=== PATIENT | male | born 1935 | race Caucasian/White ===

== ENCOUNTER → 2016-08-17 | Outpatient (CLI) | payer OTHER ==
[~2016-08-17] MED LIST: ASPI81TA28 PO; ATOR-26 PO; CHOL20007 PO; COEN1CAP40 PO; FERR325T5 PO; FIBER PO; FLUN0.02 NAE; LEVO88TA3 PO; PANT40TA2 PO; PLV75 PO; ROPI0.5T PO; TADA20TA PO; TPRSR/50 PO; VALS-58 PO
== END | disposition home or self-care (01) ==
LOC: C.RDSM 13:58
PROVIDERS: ATTEND Physical Medicine & Rehabilitation Sports Medicine
DX: Z47.1 Aftercare following joint replacement surgery (principal); Z96.653 Presence of artificial knee joint, bilateral

== ENCOUNTER 2020-07-15 13:55 | Observation (INO) ==
--- NOTE | 2020-07-15 14:54 | Emergency Department Note ---
History of Present Illness General Chief complaint: Stroke/CVA Symptoms Stated complaint: SPEECH ISSUES-UNSTEADY ON FEET-THIRSTY & TIRED Time Seen by Provider: 07/15/20 14:23 Source: patient History of Present Illness Provider complaint: Difficulty with his speech and walking. Onset (ago): hour(s) Location: head, lower extremity, left and right Severity: mild Pain Consistency: + now resolved (Mostly resolved) Maximum Pain Intensity: 0 Quality: + other (Trouble articulating words and a sense of "disequilibrium") Relieved By: + none Associated symptoms: + cough (Chronic unchanged cough. Had a negative Covid test earlier this week.); no chest pain, no fever/chills, no headaches, no era ise, no nausea/vomiting, no shortness of breath and no weakness This is an 84-year-old male with a prior history of TIA presenting with stroke symptoms starting at approximately 7 AM this morning. Patient states he went to bed at around 1 AM and when he woke up at around 7 AM he noticed that his speech was not quite right. He states he could find the words but when he tried to say the words they did not articulate normally. He states that he was talking to the TV and his cats.His symptoms have improved significantly but he still notices some problems with articulation. He also states that when he try to get up off of his recliner he had trouble walking as if he were drunk. He states that he did have back surgery earlier this week and had some difficulty walking after that but states that it got abruptly worse today and felt very different. He is on Eliquis and Plavix for prior history of atrial fibrillation and restarted the medication 2 days ago. He denies any headache, fever, chest pain, shortness of breath, malaise, loss of taste or smell, abdominal pain, vomiting, diarrhea, urinary symptoms, numbness or weakness on one side of body, difficulty with his swallowing or vision. He does state that he had a stroke 7 years ago with difficulty with his speech. He does have a pacemaker but states that he can have an MRI with the pacemaker and has had them recently. He has a chronic cough due to mucus but had a negative Covid test recently. His cough is unchanged. Home Medications Medication Instructions Recorded Confirmed Type Fiber Laxative 2 - 3 tabs PO QAM #0 01/15/14 07/15/20 History apixaban [Eliquis] 5 mg PO BID 11/26/19 07/15/20 History atorvastatin 80 mg PO HS 11/26/19 07/15/20 History cholecalciferol (vitamin D3) 1,000 mcg PO QAM 11/26/19 07/15/20 History [Vitamin D3] clopidogrel 75 mg PO QAM 11/26/19 07/15/20 History coQ10 (ubiquinol) 400 mg PO QAM 11/26/19 07/15/20 History flunisolide 1 spray INTRANASAL BID 11/26/19 07/15/20 History furosemide 40 mg PO MOWEFR 11/26/19 07/15/20 History levothyroxine 88 mcg PO QAM 11/26/19 07/15/20 History metoprolol succinate 75 mg PO HS 11/26/19 07/15/20 History pantoprazole 40 mg PO QAM 11/26/19 07/15/20 History ropinirole 2 mg PO AMHS 11/26/19 07/15/20 History tadalafil 20 mg PO UD 11/26/19 07/15/20 History tiotropium bromide [Spiriva with 1 cap INHALATION DAILY PRN 11/26/19 07/15/20 History HandiHaler] furosemide 20 mg PO SUTUTHSA 07/15/20 07/15/20 History ranolazine 1,000 mg PO BID 07/15/20 07/15/20 History Allergies Allergy/AdvReac Type Severity Reaction Status Date / Time ramipril Allergy Unknown COUGH Verified 11/26/19 15:30 Past Med/Surg History Medical History CAD (coronary artery disease) s/p NE 1988 with CABG x 4; stent x 1 2013 and x 1 2015 GERD (gastroesophageal reflux disease) 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 On tadalafil PRN for ED, not pHTN. TIA (transient ischemic attack) X 3-LAST ONE 2 YRS AGO-BLOOD THINNERS SINCE-NO ISSUES SINCE Surgical History History of back surgery X 4 LUMBAR History of cardiac cath TOTAL 2 STENTS-2013 AND 2016-F/U DR RAMIRES History of colonoscopy History of esophagogastroduodenoscopy (EGD) WITH DILITATION History of quadruple bypass 04/1988 History of tympanoplasty Hx of inguinal hernia surgery Hx of total knee replacement Social History Smoking Status: Former smoker Second Hand Exposure: Yes (PARENTS SMOKED); Hx Alcohol Use: Yes Alcohol type: beer, wine and hard liquor Hx Substance Use: No Preferred Language: Faroese Communication Ability: Effective Site Safety Representative Required: No Beliefs That Will Affect Care: None marital status: Current Living Situation: Spouse current occupational status: retired Feels Safe at Home: Yes Assistive Devices: Glasses and Hearing Aid - Bilateral Review of Systems See HPI for pertinent positives & negatives. and A total of 10 systems reviewed and were otherwise negative Physical Exam Vital Signs Vital Signs - 24 hr 07/15/20 13:56 07/15/20 14:14 07/15/20 14:20 Temperature 36.7 C Temperature Source Temporal Artery Scan Pulse Rate 82 68 66 Pulse Rate [Apical] 77 Pulse Rate from SpO2 Sensor 68 66 Respiratory Rate 18 22 25 H Respiratory Effort / Characteristics Non-Labored Respiratory Depth Normal Normal Respiratory Pattern Regular Blood Pressure 146/89 H 171/108 H Blood Pressure [Right Arm] 171/108 H Blood Pressure Mean 108 129 Blood Pressure Mean [Right Arm] 129 Blood Pressure Position Sitting Pulse Oximetry 95 95 96 Oxygen Delivery Method Room Air Room Air Sepsis Recent Fever Within 48 Hours No Sepsis New/Unexplained Change in Mental Status N/A Sepsis Action Taken by Nursing No Action Required 07/15/20 14:30 07/15/20 15:00 07/15/20 15:35 Temperature Temperature Source Pulse Rate 52 L 50 L 66 Pulse Rate [Apical] Pulse Rate from SpO2 Sensor 52 L Respiratory Rate 18 15 25 H Respiratory Effort / Characteristics Respiratory Depth Respiratory Pattern Blood Pressure 141/95 H Blood Pressure [Right Arm] Blood Pressure Mean 110 Blood Pressure Mean [Right Arm] Blood Pressure Position Pulse Oximetry 97 Oxygen Delivery Method Sepsis Recent Fever Within 48 Hours Sepsis New/Unexplained Change in Mental Status Sepsis Action Taken by Nursing 07/15/20 16:00 07/15/20 16:30 Temperature Temperature Source Pulse Rate 50 L 51 L Pulse Rate [Apical] Pulse Rate from SpO2 Sensor Respiratory Rate 19 18 Respiratory Effort / Characteristics Respiratory Depth Respiratory Pattern Blood Pressure Blood Pressure [Right Arm] Blood Pressure Mean Blood Pressure Mean [Right Arm] Blood Pressure Position Pulse Oximetry Oxygen Delivery Method Sepsis Recent Fever Within 48 Hours Sepsis New/Unexplained Change in Mental Status Sepsis Action Taken by Nursing Constitutional: Vital signs reviewed. Eyes: Pupils are equal round reactive to light. Conjunctiva are noninjected. ENT: Pharynx is clear without erythema or exudate. Mucous membranes are slightl y dry. Neck supple without meningeal signs. Respiratory: Clear to auscultation bilaterally. Breath sounds are equal bilaterally. Cardiovascular: Regular rate and rhythm. No rubs or gallops. GI: Soft, nondistended and nontender. Bowel sounds are present. Musculoskeletal: No peripheral edema. No lower extremity tenderness. Integumentary: No cyanosis. or jaundice. Neurologic: The patient is awake and alert. Cranial nerves II-XII are intact. Motor is 5 out of 5 all extremities. Sensation is intact to light touch all extremities. Normal speech. No pronator drift. No limb ataxia.NIH stroke scale 0 Psychiatric: Normal affect. Not anxious appearing. Course Administered Medications Discontinued Medications Ioversol (Optiray 350 500ml) 115 ml IV ONCE ONE Stop: 07/15/20 15:40 Last Admin: 07/15/20 15:39 Dose: 115 ml Documented by: [id number] Medical Decision Making Differential Diagnosis TIA, CVA, intracranial hemorrhage, intracranial mass, metabolic derangement Medical Records Attestation: I reviewed the patient's medical records. I did perform a limited focused review of portions of the patient's old chart on the electronic medical record. The patient has had no recent pertinent visits to this hospital.He did have an MRI of his lumbar spine in April. Home Medications Current Medication List: was personally reviewed by me Laboratory Data Attestation: I reviewed the patient's lab results. Result diagrams: 07/15/20 14:32 07/15/20 14:32 Lab Results 07/15/20 07/15/20 07/15/20 Range/Units 14:32 14:32 14:32 WBC 7.39 (4.8-10.8) K/uL RBC 3.79 L (4.7-6.1) M/uL Hgb 13.0 L (14.0-18.0) g/dL Hct 37.9 L (42-52) % MCV 100.0 (80-100) fL MCH 34.3 H (25-34) pg MCHC 34.3 (32-36) g/dL RDW Std Deviation 50.2 H (36.4-46.3) fL RDW Coeff of Shell 13.9 (11.5-14.5) % Plt Count 130 (130-400) K/uL MPV 9.4 (7.4-10.4) fL Immature Gran % (Auto) 0.7 % Neut % (Auto) 64.2 % Lymph % (Auto) 17.7 % [place] % (Auto) 13.4 % Eos % (Auto) 3.7 % Baso % (Auto) 0.3 % Neut # (Auto) 4.75 (1.4-6.5) K/uL Lymph # (Auto) 1.31 (1.2-3.4) K/uL [place] # (Auto) 0.99 H (0.11-0.59) K/uL Eos # (Auto) 0.27 (0-0.5) K/uL Baso # (Auto) 0.02 (0-0.2) K/uL Immature Gran # (Auto) 0.05 H (0.00-0.02) K/uL PT 11.7 (9.0-12.0) Seconds INR 1.2 H (0.9-1.1) APTT 27.9 (21.0-31.0) Seconds PTT Ratio 1.1 Sodium 135 L (136-145) mmol/L Potassium 4.4 (3.5-5.1) mmol/L Chloride 103 (98-107) mmol/L Carbon Dioxide 25 (21-32) mmol/L Anion Gap 7.0 (3-11) BUN 17 (7-18) mg/dl Creatinine 0.87 (0.6-1.4) mg/dl Est Cr Clr Drug Dosing 68.3 ml/min Est GFR ( Amer) 91.9 Est GFR (Non-Af Amer) 79.3 BUN/Creatinine Ratio 19.2 (10-20) Glucose 97 (70-99) mg/dl Calcium 8.2 L (8.5-10.1) mg/dl Magnesium 1.9 (1.8-2.4) mg/dl Total Bilirubin 1.0 (0.2-1) mg/dl AST 16 (15-37) U/L ALT 19 (12-78) U/L Alkaline Phosphatase 72 (45-117) U/L Troponin I < 0.015 (0-0.045) ng/ml Total Protein 6.3 L (6.4-8.2) gm/dl Albumin 3.3 L (3.4-5.0) gm/dl Globulin 3.0 (2.5-4.0) gm/dl Albumin/Globulin Ratio 1.1 (0.9-2) COVID-19 Eval Order SARS-CoV-2 (PCR) (Negative) Influenza Type A (PCR) (Neg) Influenza Type B (PCR) (Neg) RSV (RT-PCR) (Neg) 07/15/20 07/15/20 Range/Units 17:27 17:27 WBC (4.8-10.8) K/uL RBC (4.7-6.1) M/uL Hgb (14.0-18.0) g/dL Hct (42-52) % MCV (80-100) fL MCH (25-34) pg MCHC (32-36) g/dL RDW Std Deviation (36.4-46.3) fL RDW Coeff of Shell (11.5-14.5) % Plt Count (130-400) K/uL MPV (7.4-10.4) fL Immature Gran % (Auto) % Neut % (Auto) % Lymph % (Auto) % [place] % (Auto) % Eos % (Auto) % Baso % (Auto) % Neut # (Auto) (1.4-6.5) K/uL Lymph # (Auto) (1.2-3.4) K/uL [place] # (Auto) (0.11-0.59) K/uL Eos # (Auto) (0-0.5) K/uL Baso # (Auto) (0-0.2) K/uL Immature Gran # (Auto) (0.00-0.02) K/uL PT (9.0-12.0) Seconds INR (0.9-1.1) APTT (21.0-31.0) Seconds PTT Ratio Sodium (136-145) mmol/L Potassium (3.5-5.1) mmol/L Chloride (98-107) mmol/L Carbon Dioxide (21-32) mmol/L Anion Gap (3-11) BUN (7-18) mg/dl Creatinine (0.6-1.4) mg/dl Est Cr Clr Drug Dosing ml/min Est GFR ( Amer) Est GFR (Non-Af Amer) BUN/Creatinine Ratio (10-20) Glucose (70-99) mg/dl Calcium (8.5-10.1) mg/dl Magnesium (1.8-2.4) mg/dl Total Bilirubin (0.2-1) mg/dl AST (15-37) U/L ALT (12-78) U/L Alkaline Phosphatase (45-117) U/L Troponin I (0-0.045) ng/ml Total Protein (6.4-8.2) gm/dl Albumin (3.4-5.0) gm/dl Globulin (2.5-4.0) gm/dl Albumin/Globulin Ratio (0.9-2) COVID-19 Eval Order CovFluRsv at [facility] SARS-CoV-2 (PCR) NEGATIVE (Negative) Influenza Type A (PCR) Negative (Neg) Influenza Type B (PCR) Negative (Neg) RSV (RT-PCR) Negative (Neg) Imaging Data Radiologist's Impression: Head CT 07/15/20 14:41 CT head/brain wo con CLINICAL HISTORY: 84 years-old Male with dysarthria eval for stroke. Acute strokelike symptoms TECHNIQUE: Multiple axial CT images of the head were obtained without contrast. A dose lowering technique was utilized adhering to the principles of ALARA. COMPARISON: CTA head and neck of same day FINDINGS: No acute intracranial hemorrhage, midline shift, intracranial mass, hydrocephalus, territorial ischemia or abnormal extra-axial collection. Age- related involutional changes. Cerebral vascular calcifications. White matter hypodensities suggestive of chronic microvascular ischemic disease. The calvarium is intact. Trace right mastoid effusion. Postoperative changes suggestive of partial left-sided mastoidectomy. Fluid is noted within the left mastoid air cells and middle ear cavity. Mild mucosal thickening of the maxillary and ethmoid sinuses. Unremarkable soft tissues and orbits. IMPRESSION: No acute intracranial abnormality. ACT 112: Negative or not required by law. The above report was generated using voice recognition software. It may contain grammatical, syntax or spelling errors. Electronically signed by: Cm Lau M.D. 07/15/2020 3:46 PM Head CTA 07/15/20 14:41 CTA ANGIOGRAPHY OF THE HEAD CLINICAL HISTORY: Stroke Like Symptoms COMPARISON STUDY: MRA of the head April 21, 2018. TECHNIQUE: Helical axial images of the head were obtained following uneventful intravenous administration of 115 cc of Optiray. Sagittal and coronal reconstructions were viewed as well as maximal intensity projections on an independent 3-D workstation. Automated exposure control was utilized for the study. A dose lowering technique was utilized adhering to the principles of ALARA. CT DOSE: 1268.40 mGy.cm FINDINGS: No acute intracranial hemorrhage, midline shift or mass effect is present. Ventricular system is normal. Basilar cisterns are patent. There are no extra-axial collections. Left mastoidectomy is noted. There is fluid within the left middle ear. This was likely present on previous MRI. The bilateral M1, M2, A1 and A2 segments are patent. No central vessel occlusion is present. Multi focal stenoses within the intracranial portion of the right vertebral artery are similar to MRI of April 21, 2018. There is no intracranial aneurysm. IMPRESSION: 1. No central vessel occlusion. 2. No change in multifocal stenoses within the intracranial portion of the right vertebral artery. ACT 112: Negative or not required by law. Electronically signed by: Chucho Esposito M.D. 07/15/2020 4:01 PM Neck CTA 07/15/20 14:41 NECK CTA HISTORY: Stroke Like Symptoms TECHNIQUE: Multiaxial CT images of the neck were performed following the intravenous administration of contrast to evaluate the major cervical vessels. Maximum intensity projection images were also obtained. All measurements were calculated based on NASCET criteria. A dose lowering technique was utilized adhering to the principles of ALARA. COMPARISON STUDY: None. FINDINGS: The aortic arch and proximal great vessels are widely patent. No significant stenosis or occlusion within the bilateral common carotid or vertebral arteries. There is moderate calcified plaque within the mid right internal carotid artery without significant stenosis. There is also moderate calcified plaque within the left carotid bifurcation. This results in approximately 70% stenosis at the proximal left internal carotid artery best seen on image 261. The mid to distal left internal carotid artery is widely patent. There is a right perihilar groundglass airspace opacity best seen on image 12 which measures 2.1 cm. There are poststernotomy changes. IMPRESSION: 1. Approximately 70% stenosis within the proximal left internal carotid artery due to the calcified plaque. 2. No significant stenosis within the right carotid arteries or bilateral vertebral arteries. 3. A 2.1 cm right perihilar groundglass airspace opacity. This may represent a small focus of inflammatory/infectious change. However, [address] follow-up recommended to exclude the possibility of a low-grade neoplasm. ACT 112: Positive. There are findings on this exam that require communication between the performing entity and the patient following Patient Test Result Information Act ([place] Act 112) guidelines. Electronically signed by: Pablo Baires M.D. 07/15/2020 3:51 PM ECG Data Attestation: I personally reviewed and interpreted this ECG as follows: Indication: + other (Stroke symptoms) Rate (beats per minute): 75 Rhythm: + other (AV dual paced rhythm) ECG Findings: + Other (Prolonged AV conduction.); no PACs and no PVCs MDM Narrative I did evaluate the patient as noted above. The patient is presenting with strokelike symptoms starting at 7 AM this morning. He is out of the IV TPA w indow and he also is on Eliquis and Plavix.Currently his NIH scale is 0 but he states that he still has some difficulty with articulating words and walking. IV access was established. I did place an order for continuous cardiac monitoring. The monitor showed Paced rhythm at a rate of 75 bpm. I did order and personally review the patient's 12-lead EKG as described above. He has a paced rhythm. I did order and review the patient's blood work as noted in the electronic medical record. CBC demonstrates some mild anemia with a hemoglobin of 13. White blood cell count platelet counts are within normal limits. I did order a CT of the Head and CT angiogram of the head neck. I did review the images myself as well as the radiology report as described above. There is no acute intracranial ab normality. There is an approximately 70% stenosis within the proximal left internal carotid artery due to calcified plaque. No significant stenosis is otherwise noted. There is a perihilar groundglass opacity in the right lung measuring 2.1 cm. I did reassess the patient. He states his speech is now seemingly normal. He does still feel unsteady. I did try to walk him and he was somewhat off balance. I did recommend hospitalization for MRI and further evaluation. He does have a pacemaker but he states he has had multiple MRIs since having it implanted years ago. Impression & Plan Ataxia, Dysarthria, Anticoagulated Discharge Plan Visit Data Chief Complaint: Stroke/CVA Symptoms Stated Complaint: SPEECH ISSUES-UNSTEADY ON FEET-THIRSTY & TIRED ED Provider: Carlton Ewing Discharge Problem: Ataxia, Dysarthria, Anticoagulated Patient Disposition: Being Evaluated by Hospitalist Forms Stand Alone Forms: My [facility] Prescriptions Prescriptions: No Action Fiber Laxative EACH 2 - 3 tabs PO QAM Qty: 0 RF: 0 atorvastatin 80 mg Tablet 80 mg PO HS RF: 0 clopidogrel 75 mg Tablet 75 mg PO QAM RF: 0 coQ10 (ubiquinol) 200 mg Capsule 400 mg PO QAM RF: 0 Vitamin D3 100 mcg (4,000 unit) Capsule 1,000 mcg PO QAM RF: 0 furosemide 20 mg Tablet 40 mg PO MOWEFR RF: 0 Eliquis 5 mg Tablet 5 mg PO BID RF: 0 Spiriva with HandiHaler 18 mcg Capsule, W/Inhalation Device 1 cap INHALATION DAILY PRN (Reason: Wheezing) RF: 0 metoprolol succinate 50 mg Tablet Extended Release 24 Hr 75 mg PO HS RF: 0 flunisolide 25 mcg (0.025 %) [place],Non-Aerosol 1 spray INTRANASAL BID RF: 0 levothyroxine 88 mcg Capsule 88 mcg PO QAM RF: 0 ropinirole 1 mg Tablet 2 mg PO AMHS RF: 0 pantoprazole 40 mg Tablet,Delayed Release (Dr/Ec) 40 mg PO QAM RF: 0 tadalafil 20 mg Tablet 20 mg PO UD RF: 0 furosemide 20 mg tablet 20 mg PO SUTUTHSA RF: 0 ranolazine 1,000 mg tablet extended release 12 hr 1,000 mg PO BID RF: 0 Referrals Referrals: Isaias Em MD [Primary Care Provider] -
[2020-07-15 15:03] LABS: Basophils # (auto) 0.02 K/uL (0-0.2); Basophils % (auto) 0.3 %; Eosinophils # (auto) 0.27 K/uL (0-0.5); Eosinophils % (auto) 3.7 %; Hematocrit (blood only) 37.9 % (42-52); Immature Granulocytes # (auto) 0.05 K/uL (0.00-0.02); Immature Granulocytes % (auto) 0.7 %; Lymphocytes # (auto) 1.31 K/uL (1.2-3.4); Lymphocytes % (auto) 17.7 %; Mean Corpuscular Hemoglobin 34.3 pg (25-34); Mean Corpuscular Hgb Conc 34.3 g/dL (32-36); Mean Platelet Volume 9.4 fL (7.4-10.4); Monocytes # (auto) 0.99 K/uL (0.11-0.59); Monocytes % (auto) 13.4 %; Neutrophils # (auto) 4.75 K/uL (1.4-6.5); Neutrophils % (auto) 64.2 %; Platelet Count 130 K/uL (130-400); RDW Coefficient of Variation 13.9 % (11.5-14.5); RDW Standard Deviation 50.2 fL (36.4-46.3); Red Blood Count 3.79 M/uL (4.7-6.1); White Blood Count 7.39 K/uL (4.8-10.8)
[2020-07-15 15:08] LABS: INR 1.2 (0.9-1.1); Partial Thromboplastin Ratio 1.1; Partial Thromboplastin Time 27.9 Seconds (21.0-31.0); Prothrombin Time 11.7 Seconds (9.0-12.0)
[2020-07-15 15:15] LABS: Alanine Aminotransferase 19 U/L (12-78); Albumin Level 3.3 gm/dl (3.4-5.0); Aspartate Aminotransferase 16 U/L (15-37); BUN Creatinine Ratio 19.2 (10-20); Blood Urea Nitrogen 17 mg/dl (7-18); Calcium 8.2 mg/dl (8.5-10.1); Carbon Dioxide 25 mmol/L (21-32); Chloride 103 mmol/L (98-107); Creatinine Clr Calc Pharmacy 68.3 ml/min; Est GFR (African American) 91.9; Est GFR (Non-African American) 79.3; Glucose 97 mg/dl (70-99); Magnesium 1.9 mg/dl (1.8-2.4); Potassium 4.4 mmol/L (3.5-5.1); Sodium 135 mmol/L (136-145)
[2020-07-15 15:20] LABS: Albumin Globulin Ratio 1.1 (0.9-2); Alkaline Phosphatase 72 U/L (45-117); Total Protein 6.3 gm/dl (6.4-8.2); Troponin I < 0.015 ng/ml (0-0.045)
[2020-07-15] MEDS ORDERED: OPTIRAY 350 500ml IV ONE (15:39)
--- NOTE | 2020-07-15 15:47 | CT Scan Report ---
CT head/brain wo con CLINICAL HISTORY: 84 years-old Male with dysarthria eval for stroke. Acute strokelike symptoms TECHNIQUE: Multiple axial CT images of the head were obtained without contrast. A dose lowering tech nique was utilized adhering to the principles of ALARA. COMPARISON: CTA head and neck of same day FINDINGS: No acute intracranial hemorrhage, midline shift, intracranial mass, hydrocephalus, territorial ischem ia or abnormal extra-axial collection. Age-related involutional changes. Cerebral vascular calcificat ions. White matter hypodensities suggestive of chronic microvascular ischemic disease. The calvarium is intact. Trace right mastoid effusion. Postoperative changes suggestive of partial l eft-sided mastoidectomy. Fluid is noted within the left mastoid air cells and middle ear cavity. Mild mucosal thickening of the maxillary and ethmoid sinuses. Unremarkable soft tissues and orbits. IMPRESSION: No acute intracranial abnormality. ACT 112: Negative or not required by law. The above report was generated using voice recognition software. It may contain grammatical, syntax o r spelling errors. Electronically signed by: Cm Lau M.D. 07/15/2020 3:46 PM
--- NOTE | 2020-07-15 15:52 | CT Scan Report ---
NECK CTA HISTORY: Stroke Like Symptoms TECHNIQUE: Multiaxial CT images of the neck were performed following the intravenous administration o f contrast to evaluate the major cervical vessels. Maximum intensity projection images were also obta ined. All measurements were calculated based on NASCET criteria. A dose lowering technique was utili zed adhering to the principles of ALARA. COMPARISON STUDY: None. FINDINGS: The aortic arch and proximal great vessels are widely patent. No significant stenosis or o cclusion within the bilateral common carotid or vertebral arteries. There is moderate calcified plaqu e within the mid right internal carotid artery without significant stenosis. There is also moderate c alcified plaque within the left carotid bifurcation. This results in approximately 70% stenosis at th e proximal left internal carotid artery best seen on image 261. The mid to distal left internal carot id artery is widely patent. There is a right perihilar groundglass airspace opacity best seen on imag e 12 which measures 2.1 cm. There are poststernotomy changes. IMPRESSION: 1. Approximately 70% stenosis within the proximal left internal carotid artery due to the calcified p laque. 2. No significant stenosis within the right carotid arteries or bilateral vertebral arteries. 3. A 2.1 cm right perihilar groundglass airspace opacity. This may represent a small focus of inflamm atory/infectious change. However, [address] follow-up recommended to exclude the possibility o f a low-grade neoplasm. ACT 112: Positive. There are findings on this exam that require communication between the performing entity and the patient following Patient Test Result Information Act ([place] Act 112) guidelines. Electronically signed by: Pablo Baires M.D. 07/15/2020 3:51 PM
--- NOTE | 2020-07-15 16:03 | CT Scan Report ---
CTA ANGIOGRAPHY OF THE HEAD CLINICAL HISTORY: Stroke Like Symptoms COMPARISON STUDY: MRA of the head April 21, 2018. TECHNIQUE: Helical axial images of the head were obtained following uneventful intravenous administr ation of 115 cc of Optiray. Sagittal and coronal reconstructions were viewed as well as maximal inten sity projections on an independent 3-D workstation. Automated exposure control was utilized for the study. A dose lowering technique was utilized adhering to the principles of ALARA. CT DOSE: 1268.40 mGy.cm FINDINGS: No acute intracranial hemorrhage, midline shift or mass effect is present. Ventricular syst em is normal. Basilar cisterns are patent. There are no extra-axial collections. Left mastoidectomy i s noted. There is fluid within the left middle ear. This was likely present on previous MRI. The bila teral M1, M2, A1 and A2 segments are patent. No central vessel occlusion is present. Multifocal steno ses within the intracranial portion of the right vertebral artery are similar to MRI of April 21 019. There is no intracranial aneurysm. IMPRESSION: 1. No central vessel occlusion. 2. No change in multifocal stenoses within the intracranial portion of the right vertebral artery. ACT 112: Negative or not required by law. Electronically signed by: Chucho Esposito M.D. 07/15/2020 4:01 PM
--- NOTE | 2020-07-15 18:40 | History & Physical Report ---
Date of Service July 15, 2020 Assessment & Plan (1) Ataxia: Suhas cD is an 84 yo male with complex PMHx that includes 6 TIAs over the last 7 years, CAD (on Plavix, CABG 31 years ago, 2 PCIs with 2 stents), a-fib (on Eliquis), sick sinus syndrome s/p PPM several years ago, and recent l umbar spine laminectomy who presents to [facility] on 07/15/2020 for productive aphagia and unsteady gait since 0700 this morning. TIA vs CVA. TIA vs CVA Productive aphagia that resolved after several hours but ataxia that is only partially improved, h/o several TIAs, h/o HTN/HLD/CAD - suspect TIA vs stroke. Etiology likely cardioembolic 2/2 a-fib (not anti-coagulated for 5 days) vs intracranial atherosclerosis. - CT Head w/o contrast showing no acute intracranial process - CTA Head/Neck showing 70% stenosis of proximal left ICA - symptoms not congruent with this lesion - ordered MRI brain w/o contrast and TTE - pending - may consider DAPT, pending imaging results - Neurology consulted - NPO pending speech eval - admit to med/surg with tele - cardiac monitoring - A1c/lipids in the AM Atrial Fibrillation - rate-controlled with PPM x several years - continue home Eliquis CAD/HTN - TTE ordered as mentioned above - continue home Atorvastatin, Clopidogrel, Furosemide, Toprol XL, Ranolazine - started Losartan 25mg PO daily, with first dose now COPD - continue home inhalers Hypothyroidism - continue home Synthroid - TSH in AM GERD - continue home Protonix Restless Leg Syndrome - continue home Ropinirole FEN/GI: NPO pending speech eval DVT Prophylaxis: Eliquis 5mg PO BID, Plavix 75mg PO QAM Code Status: Full code Disposition: Med/surg with tele (2) Dysarthria: (3) Anticoagulated: (4) Lumbar stenosis with neurogenic claudication: (5) Hypertension: (6) TIA (transient ischemic attack): (7) History of quadruple bypass: History of Present Illness Chief Complaint: difficulty with speech production and stumbling gait Primary Care Provider: Isaias Em MD Suhas Dc is an 84 yo male with complex PMHx that includes 6 TIAs over the last 7 years, CAD (on Plavix, CABG 31 years ago, 2 PCIs with 2 stents), a-fib (on Eliquis), sick sinus syndrome s/p PPM several years ago, and recent lumbar spine laminectomy who presents to [facility] on 07/15/2020 for productive aphagia and unsteady gait since 0700 this morning. Patient reports that he recently had [place] [facility] and had been off of Plavix/Eliquis for total of 5 days - re-started both meds 2 days ago. He did well post-op and was able to walk with a steady gait. After waking up this morning he noticed that he was unable to speak in an organized fashion (only nonsensical speech) and he felt "drunk" while walking as he was unsteady. After several hours, his speech returned to baseline, but his walking is still only somewhat improved. Several of his previous TIAs involved productive aphagia but the unsteady gait is new for him. In the ED, patient had CT Head without evidence of stroke; CTA Head/Neck done and showed 70% stenosis within the proximal left internal carotid artery due to the calcified plaque. Allergies Allergy/AdvReac Type Severity Reaction Status Date / Time ramipril Allergy Unknown COUGH Verified 11/26/19 15:30 Home Medications Medication Instructions Recorded Confirmed Type Fiber Laxative 2 - 3 tabs PO QAM #0 01/15/14 07/15/20 History apixaban [Eliquis] 5 mg PO BID 11/26/19 07/15/20 History atorvastatin 80 mg PO HS 11/26/19 07/15/20 History cholecalciferol (vitamin D3) 1,000 mcg PO QAM 11/26/19 07/15/20 History [Vitamin D3] clopidogrel 75 mg PO QAM 11/26/19 07/15/20 History coQ10 (ubiquinol) 400 mg PO QAM 11/26/19 07/15/20 History flunisolide 1 spray INTRANASAL BID 11/26/19 07/15/20 History furosemide 40 mg PO MOWEFR 11/26/19 07/15/20 History levothyroxine 88 mcg PO QAM 11/26/19 07/15/20 History metoprolol succinate 75 mg PO HS 11/26/19 07/15/20 History pantoprazole 40 mg PO QAM 11/26/19 07/15/20 History ropinirole 2 mg PO AMHS 11/26/19 07/15/20 History tadalafil 20 mg PO UD 11/26/19 07/15/20 History tiotropium bromide [Spiriva with 1 cap INHALATION DAILY PRN 11/26/19 07/15/20 History HandiHaler] furosemide 20 mg PO SUTUTHSA 07/15/20 07/15/20 History ranolazine 1,000 mg PO BID 07/15/20 07/15/20 History Past Med/Surg History Medical History CAD (coronary artery disease) s/p OK 1988 with CABG x 4; stent x 1 2013 and x 1 2015 GERD (gastroesophageal reflux disease) 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 On tadalafil PRN for ED, not pHTN. TIA (transient ischemic attack) X 3-LAST ONE 2 YRS AGO-BLOOD THINNERS SINCE-NO ISSUES SINCE Surgical History History of back surgery X 4 LUMBAR History of cardiac cath TOTAL 2 STENTS-2013 AND 2016-F/U DR RAMIRES History of colonoscopy History of esophagogastroduodenoscopy (EGD) WITH DILITATION History of quadruple bypass 04/1988 History of tympanoplasty Hx of inguinal hernia surgery Hx of total knee replacement Social History Smoking Status: Former smoker Second Hand Exposure: Yes (PARENTS SMOKED); Hx Alcohol Use: Yes Alcohol type: beer, wine and hard liquor Hx Substance Use: No Preferred Language: Malawian Communication Ability: Effective Energy Management Specialist Required: No Beliefs That Will Affect Care: None marital status: Current Living Situation: Spouse current occupational status: retired Feels Safe at Home: Yes Assistive Devices: Glasses and Hearing Aid - Bilateral Review of Systems Review of Systems: All systems reviewed & are unremarkable except as noted in HPI & below Physical Exam Constitutional: WD/WN, vitals as above Eyes: PERRL, conjunctivae normal, anicteric sclerae ENMT: external ear and nose normal, oropharynx normal Neck: trachea midline, no thyromegaly Respiratory: normal respiratory effort, lungs clear to auscultation Cardiovascular: RRR, no murmur, no edema Chest (Breasts): Chest: normal inspection of chest Gastrointestinal (Abdomen): normal bowel sounds, soft, nontender, no hepatosplenomegaly Musculoskeletal: no cyanosis or clubbing, extremities motor strength 5/5 Skin: no rashes, warm and dry Neurologic: patellar DTR's 2+ bilat, sensation intact and PERRL, EOMI, accommodation nl, no face palsy, no dysarthria normal touch/pain/proprioception and CN's II-XI intact bilaterally Speech / Cognition: no expressive aphasia, no receptive aphasia and normal cognition Gait: + ataxic gait and + gait assisted Coordination: normal mvsstu-mv-drox test and normal nino-ph-sxdi test Results & Data Results & Data ([facility]) Vital Signs (Past 12 Hours) Vital Signs Temp Pulse Pulse Resp BP BP Pulse Ox 07/15/20 16:30 51 L 18 07/15/20 16:00 50 L 19 07/15/20 15:35 66 25 H 141/95 H 07/15/20 15:00 50 L 15 07/15/20 14:30 52 L 18 97 07/15/20 14:20 66 25 H 96 07/15/20 14:14 68 77 22 171/108 H 171/108 H 95 07/15/20 13:56 36.7 C 82 18 146/89 H 95 Code Status & VTE Plan Code Status Full Code VTE Prophylaxis Plan VTE Prophylaxis will be ordered: Yes Supervising Physician Co-Signing Physician Notes I personally examined the patient and verified all diaz points of history and exam, discussed case, and agree with decision making with Dr Phillips mostly feeling better dysarthria improved. still a little stumbly w gait vitals noted nad heent nc at mmm breathing unlabored no accessory muscles good effort skin no rashes no pallor or icterus. neuro exam as above, otherwise as above TIA vs CVA -MRI, supportive care, neuro consult, serial exams, med management. Otherwise as above. Resident Activity Tracking Resident Involvement: Resident Care Provided Care Provided: Adult [facility]
[2020-07-15 18:44] LABS: Influenza A virus by PCR Negative (Neg); Influenza B virus by PCR Negative (Neg); RSV by PCR Negative (Neg); SARS CoV2 RNA(COVID-19) InHosp NEGATIVE (Negative)
--- NOTE | 2020-07-15 19:14 | Billing Data ---
Date of Service July 15, 2020 Coding Level of Care Code 38880 OBS Care - Level 3
[2020-07-15] MEDS ORDERED: NON-FORMULARY MEDICATION (Tadalafil 20 mg Tablet) PO SCH (20:26)
[2020-07-15] MEDS ORDERED: PHARMACIST DISCHARGE MED REC CONSULT PRN (20:26)
[2020-07-15] MEDS ORDERED: ACETAMINOPHEN 325 MG TAB PO PRN (20:26)
[2020-07-15] MEDS ORDERED: MELATONIN 3 MG TAB PO PRN (20:26)
[2020-07-15] MEDS ORDERED: UMECLIDINIUM BROMIDE 62.5MCG/BLISTER 7 PUFFS/INHALER INH PRN (20:36)
[2020-07-15] MEDS ORDERED: ATORVASTATIN 40 MG TAB PO SCH (21:00)
[2020-07-15] MEDS ORDERED: [UNRECOGNIZED DRUG - REMARK] INTNAS SCH (21:00)
[2020-07-15] MEDS ORDERED: METOPROLOL SUCC 25MG EXT REL TAB PO SCH (21:00)
[2020-07-15] MEDS: RANOLAZINE 500 MG ER TAB PO SCH (21:05)
[2020-07-15] MEDS: rOPINIRole HCL 1 MG TABLET PO SCH (21:05)
[2020-07-15] MEDS: APIXABAN 5 MG TABLET PO SCH (21:05)
[2020-07-15] MEDS: LOSARTAN POTASSIUM 25 MG TAB PO SCH (21:05)
[2020-07-16] MEDS ORDERED: LEVOTHYROXINE SODIUM 88 MCG TABLET PO SCH (06:30)
--- NOTE | 2020-07-16 06:43 | Electrocardiogram Report ---
Test Reason : Blood Pressure : / mmHG Vent. Rate : 075 BPM Atrial Rate : 075 BPM P-R Int : 258 ms QRS Dur : 196 ms QT Int : 484 ms P-R-T Axes : -05 -49 102 degrees QTc Int : 540 ms AV dual-paced rhythm with prolonged AV conduction Abnormal ECG When compared with ECG of 30-NOV-2019 14:49, Vent. rate has increased BY 19 BPM Confirmed by Vaibhav Craig ([id number]) on 07/16/2020 6:43:05 AM Referred By: Confirmed By:Vaibhav Craig
[2020-07-16 06:53] LABS: Basophils # (auto) 0.03 K/uL (0-0.2); Basophils % (auto) 0.5 %; Eosinophils # (auto) 0.26 K/uL (0-0.5); Eosinophils % (auto) 4.5 %; Hematocrit (blood only) 38.2 % (42-52); Hemoglobin 13.4 g/dL (14.0-18.0); Immature Granulocytes # (auto) 0.05 K/uL (0.00-0.02); Immature Granulocytes % (auto) 0.9 %; Lymphocytes # (auto) 1.33 K/uL (1.2-3.4); Lymphocytes % (auto) 22.8 %; Mean Corpuscular Hemoglobin 34.6 pg (25-34); Mean Corpuscular Hgb Conc 35.1 g/dL (32-36); Mean Corpuscular Volume 98.7 fL (80-100); Mean Platelet Volume 9.9 fL (7.4-10.4); Monocytes # (auto) 0.74 K/uL (0.11-0.59); Monocytes % (auto) 12.7 %; Neutrophils # (auto) 3.42 K/uL (1.4-6.5); Neutrophils % (auto) 58.6 %; Platelet Count 141 K/uL (130-400); RDW Coefficient of Variation 13.7 % (11.5-14.5); RDW Standard Deviation 49.6 fL (36.4-46.3); Red Blood Count 3.87 M/uL (4.7-6.1); White Blood Count 5.83 K/uL (4.8-10.8)
[2020-07-16 07:11] LABS: BUN Creatinine Ratio 17.2 (10-20); Calcium 8.5 mg/dl (8.5-10.1); Creatinine Clr Calc Pharmacy 61.3 ml/min; Est GFR (African American) 83.8; Est GFR (Non-African American) 72.3; Potassium 4.3 mmol/L (3.5-5.1)
[2020-07-16 07:22] LABS: Thyroid Stimulating Hormone 1.34 uIu/ml (0.300-4.500)
[2020-07-16 07:51] LABS: Estimated Average Glucose 108 mg/dl; Hemoglobin A1C 5.4 % (4.5-5.6)
--- NOTE | 2020-07-16 08:19 | Hospitalist Progress Note ---
Date of Service July 16, 2020 Assessment & Plan (1) Ataxia: Suhas Dc is an 84 yo male with complex PMHx that includes 6 TIAs over the last 7 years, CAD (on Plavix, CABG 31 years ago, 2 PCIs with 2 stents), a-fib (on Eliquis), sick sinus syndrome s/p PPM several years ago, and recent l umbar spine laminectomy who presents to [facility] on 07/15/2020 for productive aphagia and unsteady gait since 0700 this morning. TIA vs CVA. TIA vs CVA Productive aphasia that resolved after several hours and ataxia that is now fully resolved, h/o several TIAs, h/o HTN/HLD/CAD - suspect TIA vs stroke. Etiology likely cardioembolic 2/2 a-fib (not anti-coagulated for 5 days) vs intracranial atherosclerosis. - CT Head w/o contrast showing no acute intracranial process - CTA Head/Neck showing 70% stenosis of proximal left ICA - symptoms not congruent with this lesion - ordered MRI brain w/o contrast and TTE - pending - may consider DAPT, pending imaging results - Neurology consulted -Recommend pacemaker interrogation -If stroke noted on MRI brain, would consider CT C/A/P to rule out underlying malignancy as he was on Plavix for 2 days prior to event (despite holding medications for 5 days, timing does not fit) -Follow-up with neurology clinic in 6 to 8 weeks -Patient passed dysphagia screen, will start heart healthy diet -Continue cardiac monitoring on telemetry Atrial Fibrillation - rate-controlled with PPM x several years -Pacemaker interrogation ordered, follow results - continue home Eliquis CAD/HTN - TTE ordered as mentioned above - continue home Atorvastatin, Clopidogrel, Furosemide, Toprol XL, Ranolazine - started Losartan 25mg PO daily COPD - continue home inhalers Hypothyroidism - continue home Synthroid - TSH 1.340 GERD - continue home Protonix Restless Leg Syndrome - continue home Ropinirole FEN/GI: Heart healthy diet DVT Prophylaxis: Eliquis 5mg PO BID, Plavix 75mg PO QAM Code Status: Full code Disposition: Med/surg with tele (2) Dysarthria: (3) Anticoagulated: (4) Lumbar stenosis with neurogenic claudication: (5) Hypertension: (6) TIA (transient ischemic attack): (7) History of quadruple bypass: Admission and Anticipated Discharge Date Admission Date: July 15, 2020 Supervising Physician Co-Signing Physician Notes see discharge summary Subjective Patient doing well this morning, no complaints. Later in the morning his blood pressure did decrease, but per RN patient asymptomatic. Review of Systems Review of Systems: All systems reviewed & are unremarkable except as noted in Subjective Physical Exam Constitutional: WD/WN, vitals as above Eyes: PERRL, conjunctivae normal, anicteric sclerae ENMT: external ear and nose normal, oropharynx normal Neck: trachea midline, no thyromegaly Respiratory: normal respiratory effort, lungs clear to auscultation Cardiovascular: RRR, no murmur, no edema Chest (Breasts): Chest: normal inspection of chest Gastrointestinal (Abdomen): normal bowel sounds, soft, nontender, no hepatosplenomegaly Musculoskeletal: no cyanosis or clubbing, extremities motor strength 5/5 Skin: no rashes, warm and dry Neurologic: patellar DTR's 2+ bilat, sensation intact and PERRL, EOMI, accommodation nl, no face palsy, no dysarthria normal touch/pain/proprioception and CN's II-XI intact bilaterally Speech / Cognition: no expressive aphasia, no receptive aphasia and normal cognition Results & Data Results & Data ([facility]) Vital Signs (Past 12 Hours) Vital Signs Temp Pulse Pulse Resp BP Pulse Ox 07/16/20 07:36 36.7 C 52 L 18 145/74 H 96 07/16/20 03:20 36.7 C 53 L 18 90/47 L 94 07/16/20 01:27 51 L 07/15/20 23:04 36.5 C 74 18 167/94 H 96 07/15/20 22:55 53 L 07/15/20 22:15 36.5 C 51 L 18 156/78 H 96 Resident Activity Tracking Resident Involvement: Resident Care Provided Care Provided: Adult [facility]
[2020-07-16] MEDS: APIXABAN 5 MG TABLET PO SCH (08:41)
[2020-07-16] MEDS: LOSARTAN POTASSIUM 25 MG TAB PO SCH (08:42)
[2020-07-16] MEDS: RANOLAZINE 500 MG ER TAB PO SCH (08:42)
[2020-07-16] MEDS: rOPINIRole HCL 1 MG TABLET PO SCH (08:43)
[2020-07-16] MEDS ORDERED: PANTOprazole 40 MG TAB PO SCH (09:00)
[2020-07-16] MEDS ORDERED: CHOLECALCIFEROL 1,000 UNITS 25 MCG TAB PO SCH (09:00)
[2020-07-16] MEDS ORDERED: CLOPIDOGREL BISULFATE 75 MG TAB PO SCH (09:00)
[2020-07-16] MEDS ORDERED: FUROSEMIDE 20 MG TAB PO SCH (09:00)
--- NOTE | 2020-07-16 11:15 | Neurology Consultation ---
Date of Consultation July 16, 2020 Assessment & Plan (1) Ataxia: Suhas Dc is an 84 yo man w/ PMH of CAD s/p CABG and cardiac stents, HTN, sick sinus syndrome s/p pacemaker, pulmonary HTN, h/o NV, h/o multiple TIAs, Afib on eliquis, and lumbar spinal stenosis s/p recent laminectomy who p/t [facility] with acute onset of dysarthria, gait imbalance and word finding difficulty. Symptom localization: Stroke mechanism: cardioembolic - vessel to vessel embolus - large vessel occlusion - lacunar/lipohyalinosis - flow failure - hypercoagulable - cryptogenic Stroke WorkUp: - CT head: shows no hemorrhage or hypodensity, mild SVID noted - CTA head/neck: shows moderate left ICA stenosis, moderate right ICA stenosis, multifocal narrowing of the right vertebral artery in the V4 segment due to calcified atherosclerotic plaque, diffuse intra and extracranial atherosclerosis noted, no aneurysm or LVO noted - MRI brain: pending - TTE: pending - Telemetry: paced rhythm - A1c: 5.4 - FLP: 39 - Troponin, TSH: negative, WNL Stroke Management: - Acute treatment: ASA/home apixaban - Continuous cardiac monitoring, recommend pacemaker interrogation - Vitals, Neurochecks, NIHSS per unit routine - BP parameters: SBP CAP 180, restart home anti-hypertensives for goal normotension - Obtain MRI brain to evaluate stroke burden - If stroke noted on MRI brain, would consider CT C/A/P to r/o underlying malignancy as he was on plavix/apixaban for 2 days prior to event (despite hold of medications for 5 days, timing does not fit) unless stroke is subacute - Complete ischemic stroke workup with TTE without bubble - Consult speech, PT, OT for supportive management - Will assistant corporation counsel concerning stroke education, smoking cessation, healthy diet, physical activity, weight loss - Follow up with PCP for assistance with outpatient goals (BP <130/80, LDL <70, A1c <7) - Follow up in neurology clinic in 6-8 weeks with [facility] Brown - Would also consider blood cultures given ongoing hypotension Secondary Stroke Prevention: - Antiplatelet: plavix 75mg daily - Anticoagulation: continue home apixaban 5mg bid - Statin: Atorvastatin 80 mg daily HTN: - BP parameters, as above - Restart home medications with goal of lowering BP to normotension over next 3- 4 days FEN/GI: - Diet: cardiac/heart healthy diet - Monitor lytes and replete PRN Glucose Control: - Sliding scale insulin and accuchecks per primary team to avoid hyperglycemia Thank you for this interesting consult. Plan of care was discussed with primary team. Please call with any questions. (2) Dysarthria: (3) Anticoagulated: (4) Hypertension: History of Present Illness Attending Physician: Solo Sanchez DO History of Present Illness Suhas Dc is an 84 yo man w/ PMH of CAD s/p CABG and cardiac stents, HTN, sick sinus syndrome s/p pacemaker, pulmonary HTN, h/o NV, h/o multiple TIAs, Afib on eliquis, and lumbar spinal stenosis s/p recent laminectomy who p/t [facility] with acute onset of dysarthria, gait imbalance and word finding difficulty. [employer] ~1am on 07/15/20. In the ED, he was afebrile, BP 146/89, heart rate 82, respiratory 18, satting 95% room air. Labs notable for WBC 7.9, hemoglobin low at 13 with MCV of 100, platelets 130, sodium 135, potassium 4.4, creatinine 0.7, glucose 97, INR 1.2, calcium low at 8.2, magnesium 1.9, LFTs within normal, troponin negative, Covid negative. Imaging independently reviewed. CT head shows no hemorrhage or hypodensity, mild SVID noted. CTA head and neck shows moderate left ICA stenosis, moderate right ICA stenosis, multifocal narrowing of the right vertebral artery in the V4 segment due to calcified atherosclerotic plaque, diffuse intra and extracranial atherosclerosis noted, no aneurysm or LVO noted. MRI brain pending. On examination, he reports that he had [place] [facility] [place] this week (07/12/20) and went home shortly afterwards. Notes that he held his home plavix/apixaban for 5 days prior to surgery, but this was restarted afterwards. No other recent medication changes other than taking oxycodone prn post- operatively (reports last dose was day of presentation). Reports h/o similar issue with word finding difficulty about 7-8 years ago that resolved without residual deficit. Of note, he has been having somewhat persistent bradycardia and hypotension starting earlier today. Feels like he is back to baseline and symptoms only lasted about 2-3 hours before resolving. Allergies Allergy/AdvReac Type Severity Reaction Status Date / Time ramipril Allergy Unknown COUGH Verified 11/26/19 15:30 Home Medications Medication Instructions Recorded Confirmed Type Fiber Laxative 2 - 3 tabs PO QAM #0 01/15/14 07/15/20 History apixaban [Eliquis] 5 mg PO BID 11/26/19 07/15/20 History atorvastatin 80 mg PO HS 11/26/19 07/15/20 History cholecalciferol (vitamin D3) 1,000 mcg PO QAM 11/26/19 07/15/20 History [Vitamin D3] clopidogrel 75 mg PO QAM 11/26/19 07/15/20 History coQ10 (ubiquinol) 400 mg PO QAM 11/26/19 07/15/20 History flunisolide 1 spray INTRANASAL BID 11/26/19 07/15/20 History furosemide 40 mg PO MOWEFR 11/26/19 07/15/20 History levothyroxine 88 mcg PO QAM 11/26/19 07/15/20 History metoprolol succinate 75 mg PO HS 11/26/19 07/15/20 History pantoprazole 40 mg PO QAM 11/26/19 07/15/20 History ropinirole 2 mg PO AMHS 11/26/19 07/15/20 History tadalafil 20 mg PO UD 11/26/19 07/15/20 History tiotropium bromide [Spiriva with 1 cap INHALATION DAILY PRN 11/26/19 07/15/20 History HandiHaler] furosemide 20 mg PO SUTUTHSA 07/15/20 07/15/20 History ranolazine 1,000 mg PO BID 07/15/20 07/15/20 History Patient History Medical History CAD (coronary artery disease) s/p [place] 1988 with CABG x 4; stent x 1 2013 and x 1 2015 GERD (gastroesophageal reflux disease) 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 On tadalafil PRN for ED, not pHTN. TIA (transient ischemic attack) X 3-LAST ONE 2 YRS AGO-BLOOD THINNERS SINCE-NO ISSUES SINCE Surgical History History of back surgery X 4 LUMBAR History of cardiac cath TOTAL 2 STENTS-2013 AND 2016-F/U DR RAMIRES History of colonoscopy History of esophagogastroduodenoscopy (EGD) WITH DILITATION History of quadruple bypass 04/1988 History of tympanoplasty Hx of inguinal hernia surgery Hx of total knee replacement Social History Smoking Status: Former smoker Second Hand Exposure: No; Hx Alcohol Use: Yes Alcohol type: beer, wine, hard liquor and other Hx Substance Use: No Preferred Language: Sinhala Communication Ability: Effective Client Renewal Specialist Required: No Beliefs That Will Affect Care: None marital status: Current Living Situation: Spouse current occupational status: retired Feels Safe at Home: Yes Assistive Devices: Glasses, Hearing Aid - Bilateral, Hearing Aid - Left and Hearing Aid - Right Review of Systems Review of Systems: 14 point review of systems completed and negative except as in HPI. Exam (Neuro) Physical Exam: General Exam: GEN: NAD, sitting in bed HEENT: No conjunctival injection, no rhinorrhea. CV: RRR on monitor, no significant edema. PULM: Nonlabored respirations on room air. Neuro Exam: MS: Awake and Alert. Oriented to person, place, and date. Speech fluent and appropriate without dysarthria or paraphasic errors. Language intact including naming, comprehension, repetition. Cognition and memory grossly intact. Attention intact. No neglect. CN: Visual conn full, + blink to threat bilaterally. No extinction to double simultaneous stimuli. Unable to visualize fundi on fundoscopic exam. PERRLA OU. EOMI without nystagmus. Facial sensation intact to LT. Facial muscles full and symmetric. Hearing intact to conversation. Shoulder shrug normal. Tongue midline. MOTOR: Normal bulk and tone. No pronator drift. BUE strength 5/5 at deltoids, biceps, triceps, wrist flexors and extensors, and finger flexors bilaterally. BLE strength 5/5 at iliopsoas, hamstrings, quadriceps, tibialis anterior, and gastrocnemius bilaterally. REFLEXES: 1+ at biceps, triceps, brachioradialis, trace patella, and absent Achilles bilaterally. Flexor plantar responses bilaterally. SENSORY: Intact to LT throughout, no extinction to double simultaneous stimuli. Vibration mildly diminished in BLEs up to the knees. COORDINATION: No dysmetria or ataxia on [id number] bilaterally. Normal Andie bilaterally. GAIT: Deferred due to physical status. NIH STROKE SCALE 1A. Level of Consciousness (0-3) = 0 1B. LOC Questions (0-2) = 0 1C. LOC Commands (0-2) = 0 2. Best Horizontal Gaze (0-2) = 0 3. Visual Conn (0-3) = 0 4. Facial Palsy (0-3) = 0 5. Motor Arm Right (0-4) = 0 Left (0-4) = 0 6. Motor Leg Right (0-4) = 0 Left (0-4) = 0 7. Limb Ataxia (0-2) = 0 8. Sensory (0-2) = 0 9. Best Language (0-3) = 0 10. Dysarthria (0-2) = 0 11. Extinction and Inattention (0-2) = 0 NIHSS TOTAL = 0 Results & Data ([facility]) Vital Signs (Past 12 Hours) Vital Signs Temp Pulse Pulse Resp BP Pulse Ox 07/16/20 09:17 68 07/16/20 07:36 36.7 C 52 L 18 145/74 H 96 07/16/20 03:20 36.7 C 53 L 18 90/47 L 94 07/16/20 01:27 51 L PG Care Time/CCT Total # of Minutes Spent Total Time Spent: 60 Total Time Spent with Patient: Total time spent is greater than 50% in coordination of care (as documented) at patient's floor/unit and/or counseling patient: Coding Level of Care Code 75895 Office/Outpt Visit, New Diagnoses Ataxia R27.0 Dysarthria R47.1 Anticoagulated Z79.01 Hypertension I10
[2020-07-16] MEDS ORDERED: SODIUM CHLORIDE 0.9% 1000ML 1,000 ML IV ONE (11:39)
--- NOTE | 2020-07-16 19:16 | Magnetic Resonance Report ---
MR brain wo con HISTORY: 84 years-old Male TIA acute strokelike symptoms COMPARISON: CT head, CTA head and neck 07/15/2020, brain MRI 04/21/2018. TECHNIQUE: Multiplanar multisequence MRI of the brain was obtained without the use of IV contrast FINDINGS: Sock Folder localizer images demonstrate no gross extracranial abnormality. No restricted diffusion to sugg est acute or subacute infarct. There is no acute intracranial hemorrhage, midline shift, abnormal ext ra-axial collection, hydrocephalus or intracranial mass. Age-related involutional changes. Mild patch y white matter T2/flair hyperintense foci. Cerebral venous sinuses and major arterial flow voids are patent. Left mastoid effusion. Findings suggestive of prior left-sided mastoidectomy. Mild mucosal th ickening of the maxillary sinuses. The skull, orbits and soft tissues are unremarkable. IMPRESSION: 1. No acute intracranial abnormality, specifically there is no acute or subacute infarct. 2. Age-related involutional changes with mild chronic microvascular ischemic disease. ACT 112: Negative or not required by law. The above report was generated using voice recognition software. It may contain grammatical, syntax o r spelling errors. Electronically signed by: Cm Lau M.D. 07/16/2020 7:15 PM
[2020-07-16] MEDS ORDERED: STROKE PATIENT DISCHARGE STA (19:25)
--- NOTE | 2020-07-16 20:10 | Discharge Summary ---
Date of Service July 16, 2020 Admission HPI Per Admitting Provider Suhas Dc is an 84 yo male with complex PMHx that includes 6 TIAs over the last 7 years, CAD (on Plavix, CABG 31 years ago, 2 PCIs with 2 stents), a-fib (on Eliquis), sick sinus syndrome s/p PPM several years ago, and recent lumbar spine laminectomy who presents to [facility] ED on 07/15/2020 for productive aphagia and unsteady gait since 0700 this morning. Patient reports that he recently had a back surgery at [facility] and had been off of Plavix/Eliquis for total of 5 days - re-started both meds 2 days ago. He did well post-op and was able to walk with a steady gait. After waking up this morning he noticed that he was unable to speak in an organized fashion (only nonsensical speech) and he felt "drunk" while walking as he was unsteady. After several hours, his speech returned to baseline, but his walking is still only somewhat improved. Several of his previous TIAs involved productive aphagia but the unsteady gait is new for him. In the ED, patient had CT Head without evidence of stroke; CTA Head/Neck done and showed 70% stenosis within the proximal left internal carotid artery due to the calcified plaque. Principal Diagnosis questionable TIA Discharge Exam gen aaox3 pleasant nad heent nc at mmm breathing unlabored no accessory muscles good effort skin no rashes no pallor or icterus no focal deficits to my exam Discharge Data Allergies Allergy/AdvReac Type Severity Reaction Status Date / Time ramipril Allergy Unknown COUGH Verified 11/26/19 15:30 Consultations 07/15/20 16:49 ED Decision to Admit Stat 07/15/20 20:26 Consult Neurology Routine 07/15/20 23:03 Consult Cardiology Routine Ordered Studies 07/15/20 14:41 CT angio head w con Stat CT angio neck with con Stat CT head/brain wo con Stat 07/16/20 09:00 MR brain wo con Routine Hospital Course (1) Ataxia: (2) Dysarthria: Symptoms somewhat concerning for TIA, but also in the context of having been off of his Plavix and Eliquis for 5 days not long prior, for his surgery. He did not have a stroke, his symptoms resolved entirely, and in evaluation of risks and benefits, given the narrow and unique context of when he had this event, combined with the fact that he is already on Plavix and Eliquis, and with his advanced age, we felt it unwise to have him on dual antiplatelets and an anticoagulant. For now discharged home on same meds, discussed the probable need for rapid resumption of anticoagulant and antiplatelet as quickly as pos sible post any future surgeries. But he is stable for home. Total Time Total Time Spent Total Time Spent (In Minutes): <30 Discharge Plan Discharge Items Patient Disposition: Home - Self-Care Reason For Visit: TIA VS STROKE Discharge Diagnosis: TIA type symptoms, but no clear evidence of TIA or stroke Activity: Resume your previous activity Non-emergency contact: Primary Care Provider and Neurologist Call non-emergency contact if: you have any medication questions and your symptoms worsen Follow-up/Referrals: Isaias Em MD [Primary Care Provider] - Diet: Regular Addtl Attending Provider Instructions: Fortunately the MRI did not show a stroke. with your longstanding vascular disease, it's reasonably impossible to truly rule out a TIA based on the symptoms that you had, but after consideration, it really appears that for now since you're already on anticoagulation and antiplatelet medication, we'll keep you on the same medicines at this time. follow up with Dr Em and neurology (since you used to see Dr Moreno but he retired, Dr Villafuerte and the [facility] neurology team would be able to serve you well) Pending Studies at Discharge: No Stand-Alone Forms: [facility], Smoking Cessation Medications and DC Order Prescriptions: Continued Fiber Laxative EACH 2 - 3 tabs PO QAM Qty: 0 RF: 0 atorvastatin 80 mg Tablet 80 mg PO HS RF: 0 clopidogrel 75 mg Tablet 75 mg PO QAM RF: 0 coQ10 (ubiquinol) 200 mg Capsule 400 mg PO QAM RF: 0 Vitamin D3 100 mcg (4,000 unit) Capsule 1,000 mcg PO QAM RF: 0 furosemide 20 mg Tablet 40 mg PO MOWEFR RF: 0 Eliquis 5 mg Tablet 5 mg PO BID RF: 0 Spiriva with HandiHaler 18 mcg Capsule, W/Inhalation Device 1 cap INHALATION DAILY PRN (Reason: Wheezing) RF: 0 metoprolol succinate 50 mg Tablet Extended Release 24 Hr 75 mg PO HS RF: 0 flunisolide 25 mcg (0.025 %) Leona,Non-Aerosol 1 spray INTRANASAL BID RF: 0 levothyroxine 88 mcg Capsule 88 mcg PO QAM RF: 0 ropinirole 1 mg Tablet 2 mg PO AMHS RF: 0 pantoprazole 40 mg Tablet,Delayed Release (Dr/Ec) 40 mg PO QAM RF: 0 tadalafil 20 mg Tablet 20 mg PO UD RF: 0 furosemide 20 mg tablet 20 mg PO SUTUTHSA RF: 0 ranolazine 1,000 mg tablet extended release 12 hr 1,000 mg PO BID RF: 0 Discharge Orders: Discharge Order (Routine); Ordered 07/16/20 Ordered By: Solo Sanchez Admission Data Admit Date/Time: 07/15/20 17:38 Attending Provider: Solo Sanchez Admit Provider: David Phillips Primary Care Provider: Isaias Em Other Providers: Praneeth Sy ; Radha Villafuerte ; Paramjit Buchanan Other Interventions: Discharge Summary Assessment (RN) Last Done: 07/16/20 19:46 Coding Level of Care Code 37259 OBS Care - Discharge Diagnoses Ataxia R27.0 Dysarthria R47.1
[2020-07-18] MEDS ORDERED: FUROSEMIDE 40 MG TAB PO SCH (09:00)
== END 2020-07-16 20:03 | disposition home or self-care (01) ==
LOC: ED 13:55 → 2N 13:55

== ENCOUNTER 2020-12-05 11:37 | Inpatient (IN) ==
--- NOTE | 2020-12-05 18:22 | Emergency Department Note ---
History of Present Illness General Chief complaint: Cough Stated complaint: COUGH SOB Time Seen by Provider: 12/05/20 14:09 Source: patient Mode of arrival: ambulatory Limitations: no limitations History of Present Illness Maximum Pain Intensity: 1 This patient comes in with cough that has been getting worse over quite some time he tells me he has had some increased mucus. He has dyspnea on exertion but no shortness of breath at rest he thinks he has had some lower extremity swelling that is gotten worse to. No chest pain or fever has had some TIAs in June after having back surgery but has no new numbness or weakness. No fall or trauma. No sick contacts. He had the Covid vaccine in May he continues to be on Eliquis. Home Medications Medication Instructions Recorded Confirmed Type apixaban 5 mg tablet (Eliquis) 5 mg PO BID 11/26/19 12/05/20 History atorvastatin 80 mg tablet 80 mg PO HS 11/26/19 12/05/20 History clopidogrel 75 mg tablet 75 mg PO QAM 11/26/19 12/05/20 History coQ10 (ubiquinol) 200 mg capsule 400 mg PO QAM 11/26/19 12/05/20 History furosemide 20 mg tablet 20 mg PO DAILY 11/26/19 12/05/20 History levothyroxine 88 mcg capsule 88 mcg PO QAM 11/26/19 12/05/20 History metoprolol succinate 50 mg 75 mg PO HS 11/26/19 12/05/20 History tablet,extended release 24 hr pantoprazole 40 mg tablet,delayed 40 mg PO QAM 11/26/19 12/05/20 History release ropinirole 1 mg tablet 2 mg PO AMHS 11/26/19 12/05/20 History tadalafil 20 mg tablet 20 mg PO UD 11/26/19 12/05/20 History tiotropium bromide 18 mcg capsule 1 cap INHALATION DAILY PRN 11/26/19 12/05/20 History with inhalation device (Spiriva with HandiHaler) ranolazine 1,000 mg 1,000 mg PO BID 07/15/20 12/05/20 History tablet,extended release,12 hr inulin-sorbitol 2 gram chewable 2 tab PO QAM 07/17/20 12/05/20 History tablet (Fiber Supplement (inulin)) dextromethorphan-guaifenesin 30 1 tab PO Q12H 12/05/20 12/05/20 History mg-600 mg tablet extended hr (Mucinex DM) Allergies Allergy/AdvReac Type Severity Reaction Status Date / Time ramipril Allergy Unknown COUGH Verified 12/05/20 20:05 Past Med/Surg History Medical History (Updated 12/07/20 @ 11:47 by Jeff Conrad MD) CAD (coronary artery disease) s/p TN 1988 with CABG x 4; stent x 1 2013 and x 1 2015 GERD (gastroesophageal reflux disease) 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 On tadalafil PRN for ED, not pHTN. TIA (transient ischemic attack) X 3-LAST ONE 2 YRS AGO-BLOOD THINNERS SINCE-NO ISSUES SINCE Surgical History History of back surgery X 4 LUMBAR History of cardiac cath TOTAL 2 STENTS-2013 AND 2015-F/U DR RAMIRES History of colonoscopy History of esophagogastroduodenoscopy (EGD) WITH DILITATION History of tympanoplasty Hx of inguinal hernia surgery Hx of total knee replacement Social History Smoking Status: Former smoker Tobacco Type: Cigarettes Second Hand Exposure: No; Hx Alcohol Use: Yes Alcohol type: beer, wine and hard liquor Hx Substance Use: No Preferred Language: Arabic Communication Ability: Effective Web Master Required: No Beliefs That Will Affect Care: None marital status: Current Living Situation: Spouse current occupational status: retired Other Information That Helps Us Care for You: No Feels Safe at Home: Yes Safety Concerns: Feels Safe At This Time Assistive Devices: Glasses and Hearing Aid - Bilateral Review of Systems A total of 10 systems reviewed and were otherwise negative Physical Exam Vital Signs Vital Signs - 24 hr 12/05/20 12:47 12/05/20 16:42 12/05/20 16:43 Temperature 36.7 C 36.5 C Temperature Source Oral Oral Pulse Rate 60 51 L Pulse Rate [Radial] 55 L Pulse Rate from SpO2 Sensor 51 L Pulse Rhythm Pulse Rhythm [Radial] Regular Pulse Strength [Radial] Normal Respiratory Rate 20 24 16 Respiratory Effort / Characteristics Non-Labored Spontaneous Non-Labored Respiratory Depth Normal Normal Respiratory Pattern Regular Blood Pressure 130/78 146/84 H Blood Pressure [Right Arm] 146/84 H Blood Pressure Mean 95 104 Blood Pressure Mean [Right Arm] 104 Blood Pressure Position Sitting Pulse Oximetry 97 98 98 Oxygen Delivery Method Room Air Room Air Sepsis Recent Fever Within 48 Hours No Sepsis New/Unexplained Change in Mental Status N/A Sepsis Action Taken by Nursing No Action Required 12/05/20 18:56 12/05/20 18:57 12/05/20 21:14 Temperature 36.8 C Temperature Source Oral Pulse Rate 50 L Pulse Rate [Radial] 50 L Pulse Rate from SpO2 Sensor Pulse Rhythm Regular Pulse Rhythm [Radial] Regular Regular Pulse Strength [Radial] Normal Respiratory Rate 16 16 Respiratory Effort / Characteristics Non-Labored Non-Labored Respiratory Depth Normal Normal Respiratory Pattern Regular Blood Pressure Blood Pressure [Right Arm] 146/84 H Blood Pressure Mean Blood Pressure Mean [Right Arm] 104 Blood Pressure Position Pulse Oximetry 98 98 Oxygen Delivery Method Room Air Room Air Room Air Sepsis Recent Fever Within 48 Hours Sepsis New/Unexplained Change in Mental Status Sepsis Action Taken by Nursing General: Well developed well nourished older male who appears in no acute distress, breathing comfortably on room air. Normal speech HEENT: Normal cephalic atraumatic. Pupils are equal round and reactive to light. Extraocular movements are intact. Oropharynx is pink with moist mucous membranes. No swelling of the mouth lips or tongue. Neck: Supple with a midline trachea. No meningeal signs or stiffness, no JVD or bruits. No Stridor. Chest: Clear to auscultation bilaterally. No wheezes or rhonchi. No increased work of breathing. Heart: Regular rate and rhythm without murmurs or gallops. Abdomen: Soft nontender, nondistended without rebound guarding or rigidity. Extremities: No cyanosis clubbing. He has trace bilateral edema. No calf tenderness or assymetry Spine/Back. Non tender to palpation. No CVA tenderness Skin: Good turgor without rashes. Neurologic exam: Cranial nerves two through 12 are intact. Motor and sensation are intact and symmetrical throughout. Course Administered Medications Aspirin (Aspirin 81 Mg Ectab) [facility] [place] Stop: 01/06/21 08:59 Last Admin: 12/07/20 09:16 Dose: 81 mg Documented by: [id number] Atorvastatin Calcium (Atorvastatin 40 Mg Tab) 80 mg PO [facility] Stop: 01/05/21 20:59 Last Admin: 12/06/20 21:19 Dose: 80 mg Documented by: [id number] Furosemide 40 mg/ Syringe 4 mls @ 4 mls/min IV DAILY MIHAELA Stop: 01/05/21 08:59 Last Admin: 12/07/20 09:17 Dose: 4 mls/min Documented by: [id number] Admin: 12/06/20 08:04 Dose: 4 mls/min Documented by: [id number] Levothyroxine Sodium (Levothyroxine Sodium 88 Mcg Tablet) 88 mcg PO DAILYBB MIHAELA Stop: 01/05/21 06:29 Last Admin: 12/07/20 06:29 Dose: 88 mcg Documented by: [id number] Admin: 12/06/20 06:12 Dose: 88 mcg Documented by: [id number] Metoprolol Succinate (Metoprolol Succ 25mg Ext Rel Tab) 75 mg PO HS [facility] Stop: 01/05/21 20:59 Last Admin: 12/06/20 21:19 Dose: 75 mg Documented by: [id number] Pantoprazole Sodium (Pantoprazole 40 Mg Tab) 40 mg PO QAM MIHAELA Stop: 01/05/21 08:59 Last Admin: 12/07/20 09:17 Dose: 40 mg Documented by: [id number] Admin: 12/06/20 08:04 Dose: 40 mg Documented by: [id number] Ranolazine (Ranolazine 500 Mg Er Tab) 1,000 mg PO BID [facility] Stop: 01/05/21 02:15 Last Admin: 12/07/20 09:17 Dose: 1,000 mg Documented by: [id number] Admin: 12/06/20 21:18 Dose: 1,000 mg Documented by: [id number] Admin: 12/06/20 08:02 Dose: 1,000 mg Documented by: [id number] Admin: 12/06/20 03:23 Dose: 1,000 mg Documented by: [id number] Ropinirole HCl (Ropinirole Hcl 1 Mg Tablet) 2 mg PO BID MIHAELA Stop: 01/05/21 08:59 Last Admin: 12/07/20 09:17 Dose: 2 mg Documented by: [id number] Admin: 12/06/20 21:19 Dose: 2 mg Documented by: [id number] Admin: 12/06/20 08:03 Dose: 2 mg Documented by: [id number] Warfarin Sodium (Warfarin Sod 5 Mg Tab) 5 mg PO DAILY@1600 MIHAELA Stop: 01/05/21 15:59 Last Admin: 12/06/20 16:51 Dose: 5 mg Documented by: [id number] Discontinued Medications Furosemide (Furosemide 40 Mg/4 Ml Vial) 20 mg IV NOW STA Stop: 12/05/20 21:48 Last Admin: 12/05/20 22:01 Dose: 20 mg Documented by: [id number] Furosemide (Furosemide 40 Mg/4 Ml Vial) 20 mg IV NOW STA Stop: 12/05/20 23:23 Last Admin: 12/06/20 01:24 Dose: 20 mg Documented by: [id number] Heparin Sodium/Dextrose (Heparin Iv Adult Wt-Based Standard *No* Bolus Protocol) 1 ea IV ONE ONE; Protocol Stop: 12/06/20 02:17 Last Admin: 12/06/20 03:22 Dose: 1 ea Documented by: [id number] Heparin Sodium/Dextrose (Heparin Sodium/Dextrose) 25,000 units in 500 mls @ 0 mls/hr IV .Q0M MIHAELA; Protocol Stop: 01/05/21 02:15 Last Titration: 12/07/20 10:29 Dose: 0 units/hr, 0 mls/hr Documented by: [id number] Cosigned by: [id number] Titration: 12/07/20 08:08 Dose: 0 units/hr, 0 mls/hr Documented by: [id number] Cosigned by: [id number] Titration: 12/07/20 07:04 Dose: 1,000 units/hr, 20 mls/hr Documented by: [id number] Cosigned by: [id number] Admin: 12/07/20 02:46 Dose: 1,000 units/hr, 20 mls/hr Documented by: [id number] Cosigned by: [id number] Titration: 12/07/20 02:46 Dose: 1,000 units/hr, 20 mls/hr Documented by: [id number] Cosigned by: [id number] Titration: 12/06/20 12:34 Dose: 1,000 units/hr, 20 mls/hr Documented by: [id number] Cosigned by: [id number] Titration: 12/06/20 10:29 Dose: 0 units/hr, 0 mls/hr Documented by: [id number] Cosigned by: [id number] Titration: 12/06/20 06:56 Dose: 1,400 units/hr, 28 mls/hr Documented by: [id number] Cosigned by: [id number] Admin: 12/06/20 03:21 Dose: 1,400 units/hr, 28 mls/hr Documented by: [id number] Cosigned by: [id number] Ioversol (Optiray 320 125ml) 116 ml IV ONCE ONE Stop: 12/05/20 21:18 Last Admin: 12/05/20 21:18 Dose: 116 ml Documented by: [id number] Medical Decision Making Differential Diagnosis CHF, Covid, acute coronary syndrome, arrhythmia, electrolyte or metabolic abnormality Medical Records Attestation: I reviewed the patient's medical records. Home Medications Current Medication List: was personally reviewed by me Laboratory Data Attestation: I reviewed the patient's lab results. Result diagrams: 12/07/20 06:58 12/07/20 06:58 Lab Results 12/05/20 12/05/20 12/05/20 Range/Units 18:55 18:55 18:55 WBC 5.75 (4.8-10.8) K/uL RBC 3.84 L (4.7-6.1) M/uL Hgb 13.2 L (14.0-18.0) g/dL Hct 38.7 L (42-52) % MCV 100.8 H (80-100) fL MCH 34.4 H (25-34) pg MCHC 34.1 (32-36) g/dL RDW Std Deviation 53.1 H (36.4-46.3) fL RDW Coeff of Shell 14.5 (11.5-14.5) % Plt Count 119 L (130-400) K/uL MPV 9.6 (7.4-10.4) fL Immature Gran % (Auto) 0.5 % Neut % (Auto) 59.4 % Lymph % (Auto) 24.0 % Dickey % (Auto) 12.5 % Eos % (Auto) 3.1 % Baso % (Auto) 0.5 % Neut # (Auto) 3.41 (1.4-6.5) K/uL Lymph # (Auto) 1.38 (1.2-3.4) K/uL Dickey # (Auto) 0.72 H (0.11-0.59) K/uL Eos # (Auto) 0.18 (0-0.5) K/uL Baso # (Auto) 0.03 (0-0.2) K/uL Immature Gran # (Auto) 0.03 H (0.00-0.02) K/uL PT 13.6 H (9.0-12.0) Seconds INR 1.4 H (0.9-1.1) APTT 31.9 H (21.0-31.0) Seconds PTT Ratio 1.2 D-Dimer 1470 H* (0-500) ug/L FEU Sodium 131 L (136-145) mmol/L Potassium 4.7 (3.5-5.1) mmol/L Chloride 99 (98-107) mmol/L Carbon Dioxide 26 (21-32) mmol/L Anion Gap 7.0 (3-11) BUN 28 H (7-18) mg/dl Creatinine 1.37 (0.6-1.4) mg/dl Est Cr Clr Drug Dosing 43.8 ml/min Est GFR ( Amer) 54.5 ml/min Est GFR (Non-Af Amer) 47.0 ml/min BUN/Creatinine Ratio 20.6 H (10-20) Glucose 105 H (70-99) mg/dl Calcium 8.8 (8.5-10.1) mg/dl Total Bilirubin 1.1 H (0.2-1) mg/dl AST 25 (15-37) U/L ALT 32 (12-78) U/L Alkaline Phosphatase 96 (45-117) U/L Troponin I < 0.015 (0-0.045) ng/ml NT-Pro-B Natriuret Pep 3421 H (0-1800) pg/ml Total Protein 6.9 (6.4-8.2) gm/dl Albumin 4.1 (3.4-5.0) gm/dl Globulin 2.8 (2.5-4.0) gm/dl Albumin/Globulin Ratio 1.5 (0.9-2) Lipase 209 (73-393) U/L COVID-19 Eval Order SARS-CoV-2 (PCR) (Negative) 12/05/20 12/05/20 Range/Units 18:55 18:55 WBC (4.8-10.8) K/uL RBC (4.7-6.1) M/uL Hgb (14.0-18.0) g/dL Hct (42-52) % MCV (80-100) fL MCH (25-34) pg MCHC (32-36) g/dL RDW Std Deviation (36.4-46.3) fL RDW Coeff of Shell (11.5-14.5) % Plt Count (130-400) K/uL MPV (7.4-10.4) fL Immature Gran % (Auto) % Neut % (Auto) % Lymph % (Auto) % Dickey % (Auto) % Eos % (Auto) % Baso % (Auto) % Neut # (Auto) (1.4-6.5) K/uL Lymph # (Auto) (1.2-3.4) K/uL Dickey # (Auto) (0.11-0.59) K/uL Eos # (Auto) (0-0.5) K/uL Baso # (Auto) (0-0.2) K/uL Immature Gran # (Auto) (0.00-0.02) K/uL PT (9.0-12.0) Seconds INR (0.9-1.1) APTT (21.0-31.0) Seconds PTT Ratio D-Dimer (0-500) ug/L FEU Sodium (136-145) mmol/L Potassium (3.5-5.1) mmol/L Chloride (98-107) mmol/L Carbon Dioxide (21-32) mmol/L Anion Gap (3-11) BUN (7-18) mg/dl Creatinine (0.6-1.4) mg/dl Est Cr Clr Drug Dosing ml/min Est GFR ( Amer) ml/min Est GFR (Non-Af Amer) ml/min BUN/Creatinine Ratio (10-20) Glucose (70-99) mg/dl Calcium (8.5-10.1) mg/dl Total Bilirubin (0.2-1) mg/dl AST (15-37) U/L ALT (12-78) U/L Alkaline Phosphatase (45-117) U/L Troponin I (0-0.045) ng/ml NT-Pro-B Natriuret Pep (0-1800) pg/ml Total Protein (6.4-8.2) gm/dl Albumin (3.4-5.0) gm/dl Globulin (2.5-4.0) gm/dl Albumin/Globulin Ratio (0.9-2) Lipase (73-393) U/L COVID-19 Eval Order Covid19 at [facility] SARS-CoV-2 (PCR) NEGATIVE (Negative) Imaging Data Attestation: I personally reviewed and interpreted this imaging study as follows: My Impression: Chest x-raycardiomegaly with pacemaker and congestive heart failure. Radiologist's Impression: Chest X-Ray 12/05/20 18:14 SINGLE VIEW CHEST CLINICAL HISTORY: Atypical chest pain. FINDINGS: An AP, portable, upright chest radiograph is compared to study dated 07/17/2020. A 2-lead cardiac pacemaker is unchanged in position and partially obscures the left upper chest. The patient is status post midline sternotomy. The heart is enlarged noting atherosclerotic calcification of the thoracic aorta. There is mild pulmonary vascular congestion. There are layering pleural effusions with bibasilar consolidation. No pneumothorax is seen. The skeletal structures are osteopenic. The bony thorax is grossly intact. Arthritic change is noted in the shoulders. IMPRESSION: 1. Cardiomegaly and cardiac pacemaker with evidence of mild congestive failure. 2. Small pleural effusions with bibasilar consolidation. ACT 112: Negative or not required by law. Electronically signed by: Loyd Ayers M.D. 12/05/2020 7:10 PM CTA Chest-no PE or aortic dissection. Cardiomegaly with coronary calcifications. Moderate bilateral pleural effusions bilateral posterior lower lobe atelectasis versus infiltrate. Fullness of central vessels suggestive mild vascular congestion. There is a heterogeneous density with defect identified in the upper aspect of the left atrial appendage suggestive of small thrombosis measuring 2 x 1 cm. ECG Data Attestation: I personally reviewed and interpreted this ECG as follows: Indication: + SOB/dyspnea Rate (beats per minute): 63 Rhythm: + other (paced rhytyhm) ECG Intervals/blocks: + IVCD ECG [place]: + Normal ECG ST segments: + Normal ST segments ECG Findings: no PACs or no PVCs Comparison ECG Date: from (07/07/20) Change: the following changes noted (Rate has decreased) MDM Narrative This patient comes in as described above he has had some shortness of breath and cough. He has had increasing lower extremity swelling. On my exam he looks good. Unfortunately he did have to wait a significant time before I saw him due to unusually high volume additionally was placed in the room and I was not aware he was here. When I saw him he seems stable will and stable vital signs I did extensive work-up. His EKG does not suggest ischemia and he has a paced rhythm. Troponin is not elevated. He has no significant acrylate or metabolic abnormalities. Chest x-ray shows cardiomegaly with some mild congestive gutierrez es. 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 His D-dimer was also elevated. I did order a CTA of his chest there is no evidence of PE. He does have signs of pleural effusions and vascular congestion. He may have a small mural thrombus as well. I did give him Lasix 20 mg IV as well. He has had lower extremity edema, weight gain and has not been able to get better as an outpatient. I did consult Dr. Macias Continuous cardiac monitoring: Orders placed in the EMR for continuous cardiac monitoring shows a paced rhythm at 60 Impression & Plan CHF (congestive heart failure), History of quadruple bypass, Pacemaker, COVID- 19 virus antibody negative, CONNOLLY (dyspnea on exertion), Atrial thrombus Discharge Plan Visit Data Chief Complaint: Cough Stated Complaint: COUGH SOB ED Provider: Jeff Conrad Discharge Problem: CHF (congestive heart failure), History of quadruple bypass, Pacemaker, COVID- 19 virus antibody negative, CONNOLLY (dyspnea on exertion), Atrial thrombus Patient Disposition: Admitted As Inpatient Discharge Instructions Interventions: ED Discharge Assessment Last Done: 12/06/20 02:27
[2020-12-05 19:09] LABS: Basophils # (auto) 0.03 K/uL (0-0.2); Basophils % (auto) 0.5 %; Eosinophils # (auto) 0.18 K/uL (0-0.5); Eosinophils % (auto) 3.1 %; Hematocrit (blood only) 38.7 % (42-52); Hemoglobin 13.2 g/dL (14.0-18.0); Immature Granulocytes # (auto) 0.03 K/uL (0.00-0.02); Immature Granulocytes % (auto) 0.5 %; Lymphocytes # (auto) 1.38 K/uL (1.2-3.4); Mean Corpuscular Hemoglobin 34.4 pg (25-34); Mean Corpuscular Hgb Conc 34.1 g/dL (32-36); Mean Corpuscular Volume 100.8 fL (80-100); Mean Platelet Volume 9.6 fL (7.4-10.4); Monocytes # (auto) 0.72 K/uL (0.11-0.59); Monocytes % (auto) 12.5 %; Neutrophils # (auto) 3.41 K/uL (1.4-6.5); Neutrophils % (auto) 59.4 %; Platelet Count 119 K/uL (130-400); RDW Coefficient of Variation 14.5 % (11.5-14.5); RDW Standard Deviation 53.1 fL (36.4-46.3); Red Blood Count 3.84 M/uL (4.7-6.1); White Blood Count 5.75 K/uL (4.8-10.8)
--- NOTE | 2020-12-05 19:11 | XRay Report ---
SINGLE VIEW CHEST CLINICAL HISTORY: Atypical chest pain. FINDINGS: An AP, portable, upright chest radiograph is compared to study dated 07/17/2020. A 2-lead ca rdiac pacemaker is unchanged in position and partially obscures the left upper chest. The patient is status post midline sternotomy. The heart is enlarged noting atherosclerotic calcification of the tho racic aorta. There is mild pulmonary vascular congestion. There are layering pleural effusions with b ibasilar consolidation. No pneumothorax is seen. The skeletal structures are osteopenic. The bony tho rax is grossly intact. Arthritic change is noted in the shoulders. IMPRESSION: 1. Cardiomegaly and cardiac pacemaker with evidence of mild congestive failure. 2. Small pleural effusions with bibasilar consolidation. ACT 112: Negative or not required by law. Electronically signed by: Loyd Ayers M.D. 12/05/2020 7:10 PM
[2020-12-05 19:20] LABS: INR 1.4 (0.9-1.1); Partial Thromboplastin Ratio 1.2; Partial Thromboplastin Time 31.9 Seconds (21.0-31.0); Prothrombin Time 13.6 Seconds (9.0-12.0)
[2020-12-05 19:26] LABS: Alanine Aminotransferase 32 U/L (12-78); Albumin Level 4.1 gm/dl (3.4-5.0); Aspartate Aminotransferase 25 U/L (15-37); BUN Creatinine Ratio 20.6 (10-20); Blood Urea Nitrogen 28 mg/dl (7-18); Calcium 8.8 mg/dl (8.5-10.1); Carbon Dioxide 26 mmol/L (21-32); Chloride 99 mmol/L (98-107); Creatinine Clr Calc Pharmacy 43.8 ml/min; Est GFR (African American) 54.5 ml/min; Glucose 105 mg/dl (70-99); Lipase 209 U/L (73-393); Potassium 4.7 mmol/L (3.5-5.1); Sodium 131 mmol/L (136-145)
[2020-12-05 19:30] LABS: Albumin Globulin Ratio 1.5 (0.9-2); Alkaline Phosphatase 96 U/L (45-117); Bilirubin,Total 1.1 mg/dl (0.2-1); Globulin 2.8 gm/dl (2.5-4.0); Total Protein 6.9 gm/dl (6.4-8.2); Troponin I < 0.015 ng/ml (0-0.045)
[2020-12-05 19:41] LABS: D Dimer 1470 ug/L FEU (0-500)
[2020-12-05] MEDS ORDERED: OPTIRAY 320 125ml IV ONE (21:17)
[2020-12-05] MEDS ORDERED: FUROSEMIDE 40 MG/4 ML VIAL IV STA ×2 (21:47→23:22)
--- NOTE | 2020-12-05 22:34 | History & Physical Report ---
Date of Service December 05, 2020 Assessment & Plan (1) CONNOLLY (dyspnea on exertion): Plan: Patient is a pleasant 84 year old male with complex medical history of CAD s/p CABG x4 (1988), angioplasty and stenting 2010 with repeat stent ing 2018, s/p PM Medtronic Advisa for symptomatic bradycardia, HTN, Hypothyroidism, GERD, HLD, Erectile Dysfunction Paroxysmal Atrial fibrillation last noted in 2017, TIA, COVID-19 infection May 2020, who presented with worsening shortness of breath over the past 2 days and increased weight gain over the past 10 days of ~16 pounds. Patient has an volume overloaded appearance and history, but also in addition is noted to have concern for a thrombus in the left atrial appendage noted on the stat read of the CTA chest. Dyspnea on Exertion, suspect secondary to congestive heart failure -Patient with hallmark signs of LE edema, crackles on lung exams, pulmonary congestion noted on CXR and Chest CTA -Chest CTA without PE's on stat read, but noting concern for thrombus in the L atrial appendage -Last echo in 12/04/2019 with EF 55-60% with preserved L ventricular systolic function -Repeat echo in AM -BNP ordered -Home dose of PO Lasix at this time is 10mg daily, will give IV while inpatient -Lasix 20mg IV in ED, will give another 20mg IV now -Lasix 40mg IV daily -Fluid restriction 2L daily -Daily weights -I/O's -Cardiology consulted Elevated D-Dimer with suspected thrombus of L atrial appendage -Without PE's noted on chest CTA, however, noting concern for thrombus in the L atrial appendage -Patient has been on Eliquis since recent TIA only stopping use for 5 days in June for his back surgery -Unsure of timeline that thrombus may have formed/been present -Will hold Eliquis at this time and start heparin gtt CAD s/p quadruple bypass and coronary stents -Hold Plavix while on heparin gtt -Continue Atorvastatin -Continue Metoprolol -Continue Ranolazine Hypothyroidism -Continue levothyroxine -Repeat TSH in AM GERD -Continue pantoprazole Erectile Dysfunction -Hold Tadalafil while inpatient (patient does not use for pulmonary hypertension) Dispo: Med/Surg Telemetry for diuresis and heparing gtt FEN: HH, low salt diet. Fluid restrict 2000mL DVT: Heparin gtt Code: Full (2) DJD of right shoulder: (3) History of quadruple bypass: History of Present Illness Chief Complaint: Shortness of breath Primary Care Provider: Isaias Em MD Patient is a pleasant 84 year old male with complex medical history of CAD s/p CABG x4 (1988), angioplasty and stenting 2010 with repeat stent ing 2018, s/p PM Medtronic Advisa for symptomatic bradycardia, HTN, Hypothyroidism, GERD, HLD, Erectile Dysfunction Paroxysmal Atrial fibrillation last noted in 2017, TIA, COVID-19 infection May 2020, who presented with worsening shortness of breath over the past 2 days and increased weight gain over the past 10 days of ~16 pounds. Patient has an volume overloaded appearance and history, but also in addition is noted to have concern for a thrombus in the left atrial appendage noted on the stat read of the CTA chest. Patient notes that he has been having worsening shortness of breath for years now and that he has not been able to swim or move as much as he had used to. He notes over the past 2 days he has had a significant worsening of this SOB where he would be barely able to walk up 1 flight of stairs or carry a 25lb bag of cat litter up to steps from his garage to inside of his home without feeling as though he "can't keep going" secondary to the fatigue. He notes that he does not have any chest pain, chest pressure, headache, or dizziness during these episodes, but does feel a bit more unsteady. He also notes that he has not been urinating as much as he typically does and that in the past 10 days or so he has gained roughly 16lbs which he feels is all fluid related. He denies any recent illnesses other than his COVID-19 infection inf May. He notes he has been vaccinated for COVID-19 since. He also notes that he has been undergoing adjustments with his lasix dosing with his car diologist Dr. 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 He denies any known history of heart failure. He otherwise notes chills for the past 1 year which have been stable. He states that he was started on levothyroxine 88mcg for this secondary to his hypothyroidism. Currently has no complaints. Denies any fever, chest pain, chest pressure, abdominal pain, dysuria, hematuria, nausea, vomiting, diarrhea. Med Hx: CAD s/p CABG x4 (1988), angioplasty and stenting 2010 with repeat stent ing 2018, s/p PM Medtronic Advisa for symptomatic bradycardia, HTN, Hypoth yroidism, GERD, HLD, Erectile Dysfunction Paroxysmal Atrial fibrillation last noted in 2017, TIA, COVID-19 infection May 2020 Surg Hx:CABG x4, Lumbar spine surgery x4, PM placement 2013, Inginal hernia, B/L total knee replacement Soc Hx: Smoked for 16 years, quit 1972, smoked 2-3PPD. Alcohol 1-2 glasses of wine nightly. Denies illicit drug use. Allergies Allergy/AdvReac Type Severity Reaction Status Date / Time ramipril Allergy Unknown COUGH Verified 12/05/20 20:05 Home Medications Medication Instructions Recorded Confirmed Type apixaban 5 mg tablet (Eliquis) 5 mg PO BID 11/26/19 12/05/20 History atorvastatin 80 mg tablet 80 mg PO HS 11/26/19 12/05/20 History clopidogrel 75 mg tablet 75 mg PO QAM 11/26/19 12/05/20 History coQ10 (ubiquinol) 200 mg capsule 400 mg PO QAM 11/26/19 12/05/20 History furosemide 20 mg tablet 20 mg PO DAILY 11/26/19 12/05/20 History levothyroxine 88 mcg capsule 88 mcg PO QAM 11/26/19 12/05/20 History metoprolol succinate 50 mg 75 mg PO HS 11/26/19 12/05/20 History tablet,extended release 24 hr pantoprazole 40 mg tablet,delayed 40 mg PO QAM 11/26/19 12/05/20 History release ropinirole 1 mg tablet 2 mg PO AMHS 11/26/19 12/05/20 History tadalafil 20 mg tablet 20 mg PO UD 11/26/19 12/05/20 History tiotropium bromide 18 mcg capsule 1 cap INHALATION DAILY PRN 11/26/19 12/05/20 History with inhalation device (Spiriva with HandiHaler) ranolazine 1,000 mg 1,000 mg PO BID 07/15/20 12/05/20 History tablet,extended release,12 hr inulin-sorbitol 2 gram chewable 2 tab PO QAM 07/17/20 12/05/20 History tablet (Fiber Supplement (inulin)) dextromethorphan-guaifenesin 30 1 tab PO Q12H 12/05/20 12/05/20 History mg-600 mg tablet extended hr (Mucinex DM) Past Med/Surg History Medical History CAD (coronary artery disease) s/p [place] 1988 with CABG x 4; stent x 1 2013 and x 1 2016 GERD (gastroesophageal reflux disease) 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 On tadalafil PRN for ED, not pHTN. TIA (transient ischemic attack) X 3-LAST ONE 2 YRS AGO-BLOOD THINNERS SINCE-NO ISSUES SINCE Surgical History History of back surgery X 4 LUMBAR History of cardiac cath TOTAL 2 STENTS-2013 AND 2016-F/U DR MUÑOZ History of colonoscopy History of esophagogastroduodenoscopy (EGD) WITH DILITATION History of quadruple bypass 04/1988 History of tympanoplasty Hx of inguinal hernia surgery Hx of total knee replacement Social History Smoking Status: Former smoker Tobacco Type: Cigarettes Second Hand Exposure: No; Hx Alcohol Use: Yes Alcohol type: beer, wine and hard liquor Hx Substance Use: No Preferred Language: Danish Communication Ability: Effective Instructional Support Services Director Required: No Beliefs That Will Affect Care: None marital status: Current Living Situation: Spouse current occupational status: retired Other Information That Helps Us Care for You: No Feels Safe at Home: Yes Safety Concerns: Feels Safe At This Time Assistive Devices: Glasses and Hearing Aid - Bilateral Review of Systems Review of Systems: All systems reviewed & are unremarkable except as noted in Subjective Physical Exam Constitutional: WD/WN, vitals as above well developed and well nourished; no acute distress Eyes: PERRL, conjunctivae normal, anicteric sclerae ENMT: external ear and nose normal, oropharynx normal (hearing aids ) Neck: trachea midline, no thyromegaly Respiratory: normal respiratory effort; no respiratory distress and no labored breathing Auscultation: + diminished lung sounds (at bases ) and + crackles (at bases ) Cardiovascular: Rate/Rhythm: regular rate and + bradycardic (52bpm ) Heart Sounds: normal S1 and normal S2; no murmur Extremities: + edema (1+ to mid tib); no calf tenderness Gastrointestinal (Abdomen): normal bowel sounds, soft, nontender, no hepatosplenomegaly Musculoskeletal: no cyanosis or clubbing, extremities motor strength 5/5 Skin: no rashes, warm and dry Neurologic: PERRL, EOMI, accommodation nl, no face palsy, no dysarthria Psychiatric: A+Ox3, euthymic affect Results & Data Results & Data ([facility]) Vital Signs (Past 12 Hours) Vital Signs Temp Pulse Pulse Resp BP BP Pulse Ox 12/05/20 18:57 36.8 C 50 L 16 146/84 H 98 12/05/20 18:56 50 L 16 98 12/05/20 16:43 36.5 C 55 L 16 146/84 H 98 12/05/20 16:42 51 L 24 146/84 H 98 12/05/20 12:47 36.7 C 60 20 130/78 97 Laboratory Results Laboratory Results - last 24 hr 12/05/20 12/05/20 12/05/20 18:55 18:55 18:55 WBC 5.75 RBC 3.84 L Hgb 13.2 L Hct 38.7 L MCV 100.8 H MCH 34.4 H MCHC 34.1 RDW Std Deviation 53.1 H RDW Coeff of Shell 14.5 Plt Count 119 L MPV 9.6 Immature Gran % (Auto) 0.5 Neut % (Auto) 59.4 Lymph % (Auto) 24.0 [place] % (Auto) 12.5 Eos % (Auto) 3.1 Baso % (Auto) 0.5 Neut # (Auto) 3.41 Lymph # (Auto) 1.38 [place] # (Auto) 0.72 H Eos # (Auto) 0.18 Baso # (Auto) 0.03 Immature Gran # (Auto) 0.03 H PT 13.6 H INR 1.4 H APTT 31.9 H PTT Ratio 1.2 D-Dimer 1470 H* Sodium 131 L Potassium 4.7 Chloride 99 Carbon Dioxide 26 Anion Gap 7.0 BUN 28 H Creatinine 1.37 Est Cr Clr Drug Dosing 43.8 Est GFR ( Amer) 54.5 Est GFR (Non-Af Amer) 47.0 BUN/Creatinine Ratio 20.6 H Glucose 105 H Calcium 8.8 Total Bilirubin 1.1 H AST 25 ALT 32 Alkaline Phosphatase 96 Troponin I < 0.015 NT-Pro-B Natriuret Pep 3421 H Total Protein 6.9 Albumin 4.1 Globulin 2.8 Albumin/Globulin Ratio 1.5 Lipase 209 COVID-19 Eval Order SARS-CoV-2 (PCR) 12/05/20 12/05/20 18:55 18:55 WBC RBC Hgb Hct MCV MCH MCHC RDW Std Deviation RDW Coeff of Shell Plt Count MPV Immature Gran % (Auto) Neut % (Auto) Lymph % (Auto) [place] % (Auto) Eos % (Auto) Baso % (Auto) Neut # (Auto) Lymph # (Auto) [place] # (Auto) Eos # (Auto) Baso # (Auto) Immature Gran # (Auto) PT INR APTT PTT Ratio D-Dimer Sodium Potassium Chloride Carbon Dioxide Anion Gap BUN Creatinine Est Cr Clr Drug Dosing Est GFR ( Amer) Est GFR (Non-Af Amer) BUN/Creatinine Ratio Glucose Calcium Total Bilirubin AST ALT Alkaline Phosphatase Troponin I NT-Pro-B Natriuret Pep Total Protein Albumin Globulin Albumin/Globulin Ratio Lipase COVID-19 Eval Order Covid19 at [facility] SARS-CoV-2 (PCR) NEGATIVE Diagnostic Findings Preliminary Findings Only See Final Report For Complete Findings CTA CHEST: No pulmonary embolus or aortic dissection. Cardiomegaly with coronary artery calcifications. Pacemaker in place. Moderate bilateral pleural effusions. Bilateral posterior lower lobe atelectasis versus infiltrates. Fullness of the central vessels suggestive of mild vascular congestion. Heterogeneity with defect identified within the upper aspect of the left atrial appendage suggestive of a small thrombus measuring 2.0 x 1.7 cm. Visualized upper abdominal structures unremarkable. Degenerative disease of the spine. Midline sternotomy wires. Radiologist: Gloria Miranda MD Study ready at 21:35 and initial results transmitted at 21:54 Communications: Clear Time Type Notes 12/05/20 22:05 Call Doctor Regarding Other, called [place] on 12/05 22:05 (- 04:00) SINGLE VIEW CHEST CLINICAL HISTORY: Atypical chest pain. FINDINGS: An AP, portable, upright chest radiograph is compared to study dated 07/17/2020. A 2-lead cardiac pacemaker is unchanged in position and partially obscures the left upper chest. The patient is status post midline sternotomy. The heart is enlarged noting atherosclerotic calcification of the thoracic aorta. There is mild pulmonary vascular congestion. There are layering pleural effusions with bibasilar consolidation. No pneumothorax is seen. The skeletal structures are osteopenic. The bony thorax is grossly intact. Arthritic change is noted in the shoulders. IMPRESSION: 1. Cardiomegaly and cardiac pacemaker with evidence of mild congestive failure. 2. Small pleural effusions with bibasilar consolidation. ACT 112: Negative or not required by law. Electronically signed by: Loyd Ayers M.D. 12/05/2020 7:10 PM Supervising Physician Co-Signing Physician Notes Patient seen and examined, chart reviewed, case discussed with Dr. Jain and I agree with his assessment and plan as documented above. In brief, patient is an 84yo male with history of CAD s/p CABG x 4V with subsequent stenting in 2010 and again in 2019, PAF on Eliquis 5mg po BID presenting with worsening SOB/CONNOLLY/weight gain and edema. 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 Question of CHF with CONNOLLY/SOB/edema and weight gain. Possible KENDRA thrombus noted on CT - patient is on Eliquis 5mg po BID - reports compliance with no missed doses. -Check BNP -Lasix as above - monitor I/Os, daily weights -Check TTE - patient may need TIRSO for further evaluate finding in KENDRA -Cardiology consultation appreciated -Heparin gtt as above for now -Remainder of plan as above Resident Activity Tracking Resident Involvement: Resident Care Provided Care Provided: Adult Hospital Medicine
[2020-12-05 23:42] LABS: NT Pro B Type Natriuretic Pept 3421 pg/ml (0-1800)
[2020-12-06] MEDS ORDERED: Heparin IV Adult Wt-Based Standard *NO* Bolus Protocol IV ONE (02:16)
--- NOTE | 2020-12-06 02:35 | Billing Data ---
Date of Service December 05, 2020 Coding Level of Care Code 00682 Initial Inpt Care Lvl 3
[2020-12-06] MEDS: HEPARIN SODIUM/DEXTROSE 25,000 UNITS/500 ML BAG IV SCH (03:21)
[2020-12-06] MEDS: RANOLAZINE 500 MG ER TAB PO SCH ×3 (03:23→21:18)
[2020-12-06] MEDS: LEVOTHYROXINE SODIUM 88 MCG TABLET PO SCH (06:12)
--- NOTE | 2020-12-06 07:50 | Hospitalist Progress Note ---
Date of Service December 06, 2020 Assessment & Plan (1) CONNOLLY (dyspnea on exertion): Plan: Patient is a pleasant 84 year old male with complex medical history of CAD s/p CABG x4 (1988), angioplasty and stenting 2010 with repeat stent ing 2018, s/p PM Medtronic Advisa for symptomatic bradycardia, HTN, Hypothyroidism, GERD, HLD, Paroxysmal Atrial fibrillation last noted in 2017, TIA, COVID-19 infection May 2020, who presented with worsening shortness of breath over the past 2 days and increased weight gain over the past 10 days of ~16 pounds. Patient has an volume overloaded appearance and history, but also in addition is noted to have concern for a thrombus in the left atrial appendage noted on the stat read of the CTA chest. Dyspnea on Exertion, suspect secondary to heart failure preserved EF Acute diastolic HF -Chest CTA without PE's on stat read, but noting concern for thrombus in the L atrial appendage -Last echo in 12/04/2019 with EF 55-60% with preserved L ventricular systolic function -Repeat echo pending -Lasix 40mg IV daily, Fluid restriction 2L daily, Wt down 7# and Cr stable Elevated D-Dimer with suspected thrombus of L atrial appendage -Without PE's noted on chest CTA, however, noting concern for thrombus in the L atrial appendage -Patient has been on Eliquis since recent TIA only stopping use for 5 days in June for his back surgery -Unsure of timeline that thrombus may have formed/been present - transition to therapeutic heparin gtt (2) CAD (coronary artery disease): Plan: CAD s/p quadruple bypass and coronary stents -Continue Plavix, Atorvastatin, Metoprolol, Ranolazine (3) Pulmonary hypertension: (4) TIA (transient ischemic attack): Plan: takes plavix (5) GERD (gastroesophageal reflux disease): Plan: GERD -Continue pantoprazole (6) Hypothyroidism: Plan: Hypothyroidism -Continue levothyroxine Plan: Dispo: Med/Surg Telemetry for diuresis and heparing gtt FEN: HH, low salt diet. Fluid restrict 2000mL DVT: Heparin gtt Code: Full Admission and Anticipated Discharge Date Admission Date: December 05, 2020 Subjective pt states he is feeling better he has 7# decrease in weight. Still on full AC awaiting Echo for LA appendage thrombus seen on CT scan. Review of Systems Review of Systems: Mild distress and fatigue no headache, no visual changes no speech or swallowing issues no chest pain, pressure or palpitations Mild shortness of breath with exertion no abdominal pain, nausea or vomiting, diarrhea or constipation no dysuria, hematuria or frequency no focal joint pain or swelling no back pain, CVA tenderness or radicular pain no bruising, bleeding or rashes no focal signs of weakness or numbness or altered sensation no complaints of anxiety or depression.. Physical Exam Physical Exam: The patient appeared well nourished and normally developed. Vital signs as documented. Head exam is normocephalic atraumatic Neck is with 1 cm JVD, thyromegaly, or carotid bruits. Lungs basilar rales one half the way up, no respiratory distress, no focal loss of breath sounds Cardiac exam, Rhythm is regular.. Systolic ejection murmur present Abdominal exam reveals normal bowel sounds, soft non tender, no masses Extremities are nonedematous and both pedal pulses are present Neurologic exam is alert and oriented, no focal loss of strength or sensation Skin is without bruises or rashes Psychologically is without concerns for anxiety or depression Results & Data Results & Data ([facility]) Vital Signs (Past 12 Hours) Vital Signs Temp Pulse Pulse Pulse Resp BP BP 12/06/20 07:35 65 12/06/20 07:02 97.7 F 51 L 20 119/64 12/06/20 04:29 54 L 12/06/20 02:16 97.3 F L 70 18 150/90 H Pulse Ox 12/06/20 07:35 12/06/20 07:02 96 12/06/20 04:29 12/06/20 02:16 96 PG Care Time/CCT Total # of Minutes Spent Total Time Spent with Patient: Total time spent is greater than 50% in coordination of care (as documented) at patient's floor/unit and/or counseling patient: Coding Level of Care Code 93899 Subseq Hosp Care Lvl 3 Diagnoses CONNOLLY (dyspnea on exertion) R06.00 CAD (coronary artery disease) I25.10 Pulmonary hypertension I27.20 TIA (transient ischemic attack) G45.9 GERD (gastroesophageal reflux disease) K21.9 Hypothyroidism E03.9
[2020-12-06] MEDS: rOPINIRole HCL 1 MG TABLET PO SCH ×2 (08:03→21:19)
[2020-12-06] MEDS: FUROSEMIDE 40 MG in SYRINGE 0 ML IV SCH (08:04)
[2020-12-06] MEDS: PANTOprazole 40 MG TAB PO SCH (08:04)
--- NOTE | 2020-12-06 08:11 | CT Scan Report ---
CT angio chest PE protocol CT DOSE: 847.95 mGy.cm HISTORY: 84 years-old Male with PE. Acute shortness of breath TECHNIQUE: Multiple CTA images of the chest were obtained after the intravenous administration of 116 ml Optiray. Coronal and sagittal MIPS were obtained from the axial data set and were submitted for review. All measurements were obtained according to NASCET criteria. A dose lowering technique was u tilized adhering to the principles of ALARA. COMPARISON: Chest radiograph of same day FINDINGS: CTA: There is a questioned filling defects within the left atrial appendage measuring 1.7 cm on image 171 series 7. Moderate cardiomegaly. Prior median sternotomy and CABG. Extensive [place] coronary artery c alcifications. Left subclavian pacer. No pericardial effusion. Mild fusiform dilation of the ascendin g thoracic aorta measures 4.2 x 4.3 cm. No dissection. Moderate calcifications of the thoracic aorta with patency of the imaged great vessels. 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 There is suboptimal opacification of the pulmonary arterial tree secondary to contrast bolu s timing. No filling defects identified to suggest thromboembolic disease. CT CHEST: No dominant thyroid nodule is seen. No pathologically adenopathy by CT size criteria. With mild intra lobular septal thickening. Moderate layering pleural effusions with dependent bibasilar consolidation . No pneumothorax. The imaged upper abdominal structures are normal. No acute fracture. IMPRESSION: 1. Cardiomegaly with mild pulmonary edema and moderate layering pleural effusions. 2. Filling defect within the left atrial appendage is suggestive of a small thrombus. This finding co uld be correlated with echocardiogram. 3. No pulmonary emboli. 4. Layering dependent bibasilar opacities are suggestive of atelectasis. Pneumonia considered less li macy. 5. 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 6. Additional findings as above. ACT 112: Negative or not required by law. The above report was generated using voice recognition software. It may contain grammatical, syntax o r spelling errors. Electronically signed by: Ricky Lau M.D. 12/06/2020 8:10 AM
--- NOTE | 2020-12-06 08:35 | Electrocardiogram Report ---
Test Reason : Blood Pressure : / mmHG Vent. Rate : 053 BPM Atrial Rate : 062 BPM P-R Int : 000 ms QRS Dur : 196 ms QT Int : 530 ms P-R-T Axes : 000 -47 128 degrees QTc Int : 497 ms Ventricular-paced rhythm Abnormal ECG When compared with ECG of 17-JUL-2020 11:53, Vent. rate has decreased BY 26 BPM Confirmed by Canelo Garcia ([id number]) on 12/06/2020 8:35:09 AM Referred By: REFERRED SELF Confirmed By:Canelo Garcia
--- NOTE | 2020-12-06 08:46 | Cardiology Consultation ---
Date of Consultation December 06, 2020 Assessment & Plan (1) CHF (congestive heart failure): IMPRESSION: 1. Diastolic CHF exacerbation, previous echo 12/2019 with preserved LVF and distal LAD wall motion abnormality with an EF in the range of 55-60% with type 2 diastolic dysfunction and moderate mitral and tricuspid regurgitation. 2. Apical thrombus discovered on CT chest with elevated Ddimer 3. Coronary disease status post coronary bypass grafting x4. 4. History of angioplasty and stenting in 2010 with a drug-eluting stent to the [place] marginal branch. 2B. Status post angioplasty and stenting 09/2018, involving a sequential vein graft(to OM1 and OM2) just beyond the touchdown at OM2. 5. Dual-chamber pacemaker (Medtronic Advisa DRMRI compatible) for chronotropic incompetence. 6. Hypertension. 7. Hyperlipidemia. 8. Paroxysmal fibrillation. 9. Symptomatic PVCs which he has had dating back to his stress echo of 2010. 10. Possible TIA May 2015 and June 2020. 11 Worsening lower extremity edema with amlodipine. 12. Chronic stable angina, remaining functional class 2. 13. Left internal carotid artery stenosis of 70% by CTA at [facility]. He is down almost three liters from admission. Continue daily weights and strict I&O. Echo is pending. His BNP is only marginally improved this morning at 3,156. Continue furosemide 40 mg IV daily. His sodium has improved from 131 to 133. He was previously on a fluid restriction of 1500 mls per day to address this and his furosemide had been decreased as he appeared dehydrated. Can continue with his slightly more liberal fluid restriction here for now. Kidney function is stable. Apical thrombus was discovered on CT at admission. His last pause of anticoagulation was in June for 5 days with his back surgery at which time he also had a TIA. This does seem somewhat remote to have been the source of the clot with months of anticoagulation following. He does not appear to be having paroxysmal afib episodes, his last device check was in June and showed him to be atrial pacing 94% and ventricular pacing 99%. Would recommend he transition to Coumadin with INR goal of 2.5-3.5. He can utilize Lovenox to bridge when ready for discharge. He should establish with the anticoagulation clinic. He can be changed to aspirin instead of Plavix for antiplatelet therapy to reduce his risk of bleeding with the higher dosing of anticoagulation. He should continue with atorvastatin 80 mg daily, metoprolol and ranolazine for his CAD. History of Present Illness Reason for Consultation: CHF and apical thrombus Attending Physician: Carlton Triana MD History of Present Illness Mr. Dc presented to the ED after becoming progressively more sob with lower extremity edema over 2 days and weight gain of about 16 pounds in 10 days. He denies any changes to his diet or increase in his sodium intake. He was also incidentally found to have an apical thrombus on CT and his d-dimer was elevated, no evidence of PEs. This morning he is feeling well: no chest pain, sob, palpitations, lightheadedness or edema. He is eating breakfast. He is getting up to the bathroom on his own without difficulty. No events on the monitor overnight, continues pacing. VSS Allergies Allergy/AdvReac Type Severity Reaction Status Date / Time ramipril Allergy Unknown COUGH Verified 12/05/20 20:05 Home Medications Medication Instructions Recorded Confirmed Type apixaban 5 mg tablet (Eliquis) 5 mg PO BID 11/26/19 12/05/20 History atorvastatin 80 mg tablet 80 mg PO 11/26/19 12/05/20 History clopidogrel 75 mg tablet 75 mg PO QAM 11/26/19 12/05/20 History coQ10 (ubiquinol) 200 mg capsule 400 mg PO QAM 11/26/19 12/05/20 History furosemide 20 mg tablet 20 mg PO DAILY 11/26/19 12/05/20 History levothyroxine 88 mcg capsule 88 mcg PO QA 11/26/19 12/05/20 History metoprolol succinate 50 mg 75 mg PO 11/26/19 12/05/20 History tablet,extended release 24 hr pantoprazole 40 mg tablet,delayed 40 mg PO QA 11/26/19 12/05/20 History release ropinirole 1 mg tablet 2 mg PO AMHS 11/26/19 12/05/20 History tadalafil 20 mg tablet 20 mg PO UD 11/26/19 12/05/20 History tiotropium bromide 18 mcg capsule 1 cap INHALATION DAILY PRN 11/26/19 12/05/20 History with inhalation device (Spiriva with HandiHaler) ranolazine 1,000 mg 1,000 mg PO BID 07/15/20 12/05/20 History tablet,extended release,12 hr inulin-sorbitol 2 gram chewable 2 tab PO QAM 07/17/20 12/05/20 History tablet (Fiber Supplement (inulin)) dextromethorphan-guaifenesin 30 1 tab PO Q12H 12/05/20 12/05/20 History mg-600 mg tablet extended [id number] hr (Mucinex DM) Patient History Medical History (Updated 12/06/20 @ 07:50 by Carlton Triana MD) CAD (coronary artery disease) s/p [place] 1988 with CABG x 4; stent x 1 2013 and x 1 2015 GERD (gastroesophageal reflux disease) 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 On tadalafil PRN for ED, not pHTN. TIA (transient ischemic attack) X 3-LAST ONE 2 YRS AGO-BLOOD THINNERS SINCE-NO ISSUES SINCE Surgical History History of back surgery X 4 LUMBAR History of cardiac cath TOTAL 2 STENTS-2013 AND 2015-F/U DR RAMIRES History of colonoscopy History of esophagogastroduodenoscopy (EGD) WITH DILITATION History of tympanoplasty Hx of inguinal hernia surgery Hx of total knee replacement Social History Smoking Status: Former smoker Tobacco Type: Cigarettes Second Hand Exposure: No; Hx Alcohol Use: Yes Alcohol type: beer, wine and hard liquor Hx Substance Use: No Preferred Language: Croatian Communication Ability: Effective Extractor Operator Required: No Beliefs That Will Affect Care: None marital status: Current Living Situation: Spouse current occupational status: retired Other Information That Helps Us Care for You: No Feels Safe at Home: Yes Safety Concerns: Feels Safe At This Time Assistive Devices: Glasses and Hearing Aid - Bilateral Review of Systems Review of Systems: All systems reviewed & are unremarkable except as noted in HPI & below Physical Exam Constitutional: WD/WN, vitals as above Respiratory: normal respiratory effort, lungs clear to auscultation Cardiovascular: RRR, no murmur, no edema Skin: no rashes, warm and dry Neurologic: moves all extremities and awake Psychiatric: A+Ox3, euthymic affect Results & Data ([facility]) Vital Signs (Past 12 Hours) Vital Signs Temp Pulse Pulse Pulse Resp BP BP 12/06/20 07:35 65 12/06/20 07:02 36.5 C 51 L 20 119/64 12/06/20 04:29 54 L 12/06/20 02:16 36.3 C L 70 18 150/90 H Pulse Ox 12/06/20 07:35 12/06/20 07:02 96 12/06/20 04:29 12/06/20 02:16 96 (1) CHF (congestive heart failure) Heart failure chronicity: acute Heart failure type: unspecified Qualified Code(s): I50.9 - Heart failure, unspecified
[2020-12-06] MEDS ORDERED: FUROSEMIDE 40 MG/4 ML VIAL IV SCH (09:00)
--- NOTE | 2020-12-06 09:22 | XRay Report ---
XR chest 1V portable HISTORY: 84 years-old Male fluid overload acute shortness of breath COMPARISON: Chest radiograph and CTA chest 12/05/2020 TECHNIQUE: Portable AP view of the chest FINDINGS: Cardiomegaly with prior median sternotomy. Left subclavian pacer with prior CABG. Calcified plaque th e thoracic aorta. Layering pleural effusions with mildly improved aeration of the lung bases. Pulmona ry vascular congestion with persistent interstitial coarsening. Degenerative changes of the shoulders and spine. IMPRESSION: 1. Cardiomegaly with persistent pulmonary edema. 2. Layering pleural effusions with mildly decreased bibasilar densities. ACT 112: Negative or not required by law. The above report was generated using voice recognition software. It may contain grammatical, syntax o r spelling errors. Electronically signed by: Ricky Lau M.D. 12/06/2020 9:21 AM
[2020-12-06 09:46] LABS: Basophils # (auto) 0.02 K/uL (0-0.2); Basophils % (auto) 0.4 %; Eosinophils # (auto) 0.21 K/uL (0-0.5); Hematocrit (blood only) 37.5 % (42-52); Hemoglobin 12.8 g/dL (14.0-18.0); Immature Granulocytes # (auto) 0.02 K/uL (0.00-0.02); Immature Granulocytes % (auto) 0.4 %; Lymphocytes # (auto) 1.11 K/uL (1.2-3.4); Lymphocytes % (auto) 20.9 %; Mean Corpuscular Hemoglobin 34.5 pg (25-34); Mean Corpuscular Hgb Conc 34.1 g/dL (32-36); Mean Corpuscular Volume 101.1 fL (80-100); Mean Platelet Volume 10.1 fL (7.4-10.4); Monocytes # (auto) 0.57 K/uL (0.11-0.59); Monocytes % (auto) 10.8 %; Neutrophils # (auto) 3.37 K/uL (1.4-6.5); Neutrophils % (auto) 63.5 %; Platelet Count 122 K/uL (130-400); RDW Coefficient of Variation 14.4 % (11.5-14.5); RDW Standard Deviation 53.3 fL (36.4-46.3); Red Blood Count 3.71 M/uL (4.7-6.1)
[2020-12-06 10:06] LABS: Partial Thromboplastin Ratio > 5.3
[2020-12-06 10:12] LABS: Albumin Level 3.6 gm/dl (3.4-5.0); BUN Creatinine Ratio 21.4 (10-20); Calcium 8.7 mg/dl (8.5-10.1); Est GFR (African American) 57.5 ml/min; Est GFR (Non-African American) 49.6 ml/min; Magnesium 1.9 mg/dl (1.8-2.4); Potassium 3.8 mmol/L (3.5-5.1)
[2020-12-06 10:19] LABS: Partial Thromboplastin Time > 139.0 Seconds (21.0-31.0)
[2020-12-06 10:28] LABS: Albumin Globulin Ratio 1.3 (0.9-2); Bilirubin,Total 0.9 mg/dl (0.2-1); Globulin 2.7 gm/dl (2.5-4.0); Thyroid Stimulating Hormone 2.76 uIu/ml (0.300-4.500); Total Protein 6.3 gm/dl (6.4-8.2)
[2020-12-06 10:44] LABS: Vitamin B12 389 pg/ml (193-986)
[2020-12-06 12:22] LABS: Partial Thromboplastin Ratio 2.2
[2020-12-06 12:25] LABS: Partial Thromboplastin Time 58.5 Seconds (21.0-31.0)
[2020-12-06] MEDS: WARFARIN SOD 5 MG TAB PO SCH (16:51)
--- NOTE | 2020-12-06 18:11 | XCELERA ---
[id number]
[2020-12-06] MEDS: ATORVASTATIN 40 MG TAB PO SCH (21:19)
[2020-12-06] MEDS: METOPROLOL SUCC 25MG EXT REL TAB PO SCH (21:19)
[2020-12-07] MEDS: HEPARIN SODIUM/DEXTROSE 25,000 UNITS/500 ML BAG IV SCH (02:46)
[2020-12-07] MEDS: LEVOTHYROXINE SODIUM 88 MCG TABLET PO SCH (06:29)
[2020-12-07 07:13] LABS: Basophils # (auto) 0.03 K/uL (0-0.2); Basophils % (auto) 0.6 %; Eosinophils # (auto) 0.23 K/uL (0-0.5); Eosinophils % (auto) 4.7 %; Hemoglobin 12.6 g/dL (14.0-18.0); Immature Granulocytes # (auto) 0.04 K/uL (0.00-0.02); Immature Granulocytes % (auto) 0.8 %; Lymphocytes # (auto) 1.62 K/uL (1.2-3.4); Lymphocytes % (auto) 32.9 %; Mean Corpuscular Hemoglobin 34.2 pg (25-34); Mean Corpuscular Hgb Conc 34.1 g/dL (32-36); Mean Corpuscular Volume 100.5 fL (80-100); Mean Platelet Volume 9.5 fL (7.4-10.4); Monocytes # (auto) 0.57 K/uL (0.11-0.59); Monocytes % (auto) 11.6 %; Neutrophils # (auto) 2.43 K/uL (1.4-6.5); Neutrophils % (auto) 49.4 %; Platelet Count 109 K/uL (130-400); RDW Coefficient of Variation 14.3 % (11.5-14.5); RDW Standard Deviation 52.5 fL (36.4-46.3); Red Blood Count 3.68 M/uL (4.7-6.1); White Blood Count 4.92 K/uL (4.8-10.8)
[2020-12-07 07:44] LABS: BUN Creatinine Ratio 20.8 (10-20); Calcium 8.3 mg/dl (8.5-10.1); Creatinine Clr Calc Pharmacy 50.9 ml/min; Est GFR (African American) 72.7 ml/min; Est GFR (Non-African American) 62.7 ml/min; Potassium 4.2 mmol/L (3.5-5.1)
[2020-12-07 07:51] LABS: INR 1.4 (0.9-1.1); Partial Thromboplastin Ratio > 5.3; Prothrombin Time 13.4 Seconds (9.0-12.0)
[2020-12-07 08:01] LABS: Partial Thromboplastin Time > 139.0 Seconds (21.0-31.0)
[2020-12-07] MEDS ORDERED: LOVENOX TEACHING KIT PRN (08:28)
[2020-12-07] MEDS ORDERED: ENOXAPARIN 1 MG/KG SQ SCH (08:30)
[2020-12-07] MEDS: ASPIRIN 81 MG ECTAB PO SCH (09:16)
[2020-12-07] MEDS: rOPINIRole HCL 1 MG TABLET PO SCH ×2 (09:17→22:14)
[2020-12-07] MEDS: FUROSEMIDE 40 MG in SYRINGE 0 ML IV SCH (09:17)
[2020-12-07] MEDS: RANOLAZINE 500 MG ER TAB PO SCH ×2 (09:17→22:11)
[2020-12-07] MEDS: PANTOprazole 40 MG TAB PO SCH (09:17)
--- NOTE | 2020-12-07 09:40 | Cardiology Progress Note ---
Date of Service December 07, 2020 Assessment & Plan (1) CHF (congestive heart failure): Plan: IMPRESSION: 1. Diastolic CHF exacerbation, previous echo 12/2019 with preserved LVF and distal LAD wall motion abnormality with an EF in the range of 55-60% with type 2 diastolic dysfunction and moderate mitral and tricuspid regurgitation. 2. Apical thrombus discovered on CT chest with elevated Ddimer 3. Coronary disease status post coronary bypass grafting x4. 4. History of angioplasty and stenting in 2010 with a drug-eluting stent to the [place] marginal branch. 2B. Status post angioplasty and stenting 09/2018, involving a sequential vein graft(to OM1 and OM2) just beyond the touchdown at OM2. 5. Dual-chamber pacemaker (Medtronic Advisa DRMRI compatible) for chronotropic incompetence. 6. Hypertension. 7. Hyperlipidemia. 8. Paroxysmal fibrillation. 9. Symptomatic PVCs which he has had dating back to his stress echo of 2010. 10. Possible TIA May 2015 and June 2020. 11 Worsening lower extremity edema with amlodipine. 12. Chronic stable angina, remaining functional class 2. 13. Left internal carotid artery stenosis of 70% by CTA at [facility]. He is down about 8 pounds from admission. His echo showed a decrease in his EF t o 35-40%. He has moderate to severe mitral regurg, and moderate tricuspid regurg. He continues to demonstrate wall motion abnormalities. His BNP was elevated at over 3,000. He can go home on 20 mg daily of furosemide. He will be initiated on low dose Entresto. He will need to have a kidney function panel in 1 week. His sodium is stable at 132. He was previously on a fluid restriction of 1500 mls per day to address this and his furosemide had been decreased as he appeared dehydrated. Can continue with his slightly more liberal fluid restriction here for now. Kidney function is stable. Apical thrombus was discovered on CT at admission. His last pause of anticoagulation was in June for 5 days with his back surgery at which time he also had a TIA. This does seem somewhat remote to have been the source of the clot with months of anticoagulation following. He does not appear to be having paroxysmal afib episodes, his last device check was in June and showed him to be atrial pacing 94% and ventricular pacing 99%. He had COVID in May. He will need to make sure he is up to date on all of his cancer screenings including PSA and colonoscopy. Would recommend he transition to Coumadin with INR goal of 2.5-3.5. He can utilize Lovenox to bridge when ready for discharge. He will establish with the [facility] anticoagulation clinic. He can be changed to aspirin instead of Plavix for antiplatelet therapy to reduce his risk of bleeding with the higher dosing of anticoagulation. He should continue with atorvastatin 80 mg daily, metoprolol and ranolazine for his CAD. I asked him to walk the halls and see how he feels. If he is able to tolerate, he can be discharged home. We will arrange for close follow up in the clinic Admission and Anticipated Discharge Date Admission Date: December 05, 2020 Subjective Mr. Dc is feeling well. He has no complaints: no sob, chest pain, palpitations, lightheadedness. He is pacing on the monitor. VSS Review of Systems Review of Systems: All systems reviewed & are unremarkable except as noted in HPI & below Physical Exam Constitutional: WD/WN, vitals as above Respiratory: normal respiratory effort, lungs clear to auscultation Cardiovascular: RRR, no murmur, no edema Skin: no rashes, warm and dry Neurologic: moves all extremities and awake Psychiatric: Orientation: alert and oriented x 3 Results & Data ([facility]) Vital Signs (Past 12 Hours) Vital Signs Temp Pulse Pulse Resp BP BP Pulse Ox 12/07/20 07:35 36.3 C L 53 L 20 135/81 96 12/07/20 03:49 36.3 C L 56 L 18 119/69 94 12/07/20 01:54 51 L 12/06/20 23:23 36.2 C L 55 L 18 154/90 H 98 (1) CHF (congestive heart failure) Heart failure chronicity: acute Heart failure type: unspecified Qualified Code(s): I50.9 - Heart failure, unspecified
[2020-12-07] MEDS: SACUBITRIL-VALSARTAN 24-26 MG TAB PO SCH ×2 (12:20→22:13)
[2020-12-07] MEDS: ENOXAPARIN 80 MG/0.8 ML SYR SQ SCH ×2 (12:22→22:15)
[2020-12-07] MEDS: WARFARIN SOD 5 MG TAB PO SCH (16:28)
--- NOTE | 2020-12-07 18:32 | Hospitalist Progress Note ---
Date of Service December 07, 2020 Assessment & Plan (1) CONNOLLY (dyspnea on exertion): Plan: Patient is a pleasant 84 year old male with complex medical history of CAD s/p CABG x4 (1988), angioplasty and stenting 2010 with repeat stent ing 2018, s/p PM Medtronic Advisa for symptomatic bradycardia, HTN, Hypothyroidism, GERD, HLD, Paroxysmal Atrial fibrillation last noted in 2017, TIA, COVID-19 infection May 2020, who presented with worsening shortness of breath over the past 2 days and increased weight gain over the past 10 days of ~16 pounds. Patient has an volume overloaded appearance and history, but also in addition is noted to have concern for a thrombus in the left atrial appendage noted on the stat read of the CTA chest. Dyspnea on Exertion, suspect secondary to heart failure preserved EF Acute diastolic HF -Chest CTA without PE's on stat read, but noting concern for thrombus in the L atrial appendage cardiology recommends lovenox -> coumadin and coumadin clinic follow up, started lovenox 12/07, if proficient may consider discharge on overlap -Last echo in 12/04/2019 with EF 55-60% with preserved L ventricular systolic function -Repeat echo shows preserved EF -Lasix 40mg IV daily, Fluid restriction 2L daily, Wt down 7# and Cr stable Elevated D-Dimer with suspected thrombus of L atrial appendage -Without PE's noted on chest CTA, however, noting concern for thrombus in the L atrial appendage -Patient has been on Eliquis since recent TIA only stopping use for 5 days in June for his back surgery -Unsure of timeline that thrombus may have formed/been present - transition to therapeutic warfarin with anticoagulation clinic follow up (2) Atrial thrombus: Plan: as per [email or web address].nih.gov Once an KENDRA thrombus is identified, effective anticoagulation is recommended for at least three weeks or until KENDRA thrombus resolution is detected on follow-up TOE will have on warfarin with future discussion if can return to eliquis with Coumadin clinic (3) CAD (coronary artery disease): Plan: CAD s/p quadruple bypass and coronary stents -Continue Plavix, Atorvastatin, Metoprolol, Ranolazine (4) Pulmonary hypertension: (5) TIA (transient ischemic attack): Plan: takes plavix (6) GERD (gastroesophageal reflux disease): Plan: GERD -Continue pantoprazole (7) Hypothyroidism: Plan: Hypothyroidism -Continue levothyroxine Plan: Dispo: Med/Surg Telemetry for diuresis and heparing gtt FEN: HH, low salt diet. Fluid restrict 2000mL DVT: Heparin gtt Code: Full Admission and Anticipated Discharge Date Admission Date: December 05, 2020 Subjective pt feels very spry and feels improved that he has lost some weight, he says he is comfortable with lovenox injections having done them in the past. Review of Systems Review of Systems: Mild distress and fatigue no headache, no visual changes no speech or swallowing issues no chest pain, pressure or palpitations Mild shortness of breath with exertion no abdominal pain, nausea or vomiting, diarrhea or constipation no dysuria, hematuria or frequency no focal joint pain or swelling no back pain, CVA tenderness or radicular pain no bruising, bleeding or rashes no focal signs of weakness or numbness or altered sensation no complaints of anxiety or depression.. Physical Exam Physical Exam: The patient appeared well nourished and normally developed. Vital signs as documented. Head exam is normocephalic atraumatic Neck is with 1 cm JVD, thyromegaly, or carotid bruits. Lungs basilar rales one half the way up, no respiratory distress, no focal loss of breath sounds Cardiac exam, Rhythm is regular.. Systolic ejection murmur present Abdominal exam reveals normal bowel sounds, soft non tender, no masses Extremities are nonedematous and both pedal pulses are present Neurologic exam is alert and oriented, no focal loss of strength or sensation Skin is without bruises or rashes Psychologically is without concerns for anxiety or depression Results & Data Results & Data ([facility]) Vital Signs (Past 12 Hours) Vital Signs Temp Pulse Pulse Resp BP Pulse Ox 12/07/20 15:40 98.4 F 71 18 132/67 96 12/07/20 14:58 50 L 12/07/20 11:14 97.5 F L 56 L 19 110/63 97 12/07/20 08:00 57 L 12/07/20 07:35 97.3 F L 53 L 20 135/81 96 PG Care Time/CCT Total # of Minutes Spent Total Time Spent with Patient: Total time spent is greater than 50% in coordination of care (as documented) at patient's floor/unit and/or counseling patient: Coding Level of Care Code 51533 Subseq Hosp Care Lvl 3 Diagnoses CONNOLLY (dyspnea on exertion) R06.00 CAD (coronary artery disease) I25.10 Pulmonary hypertension I27.20 TIA (transient ischemic attack) G45.9 GERD (gastroesophageal reflux disease) K21.9 Hypothyroidism E03.9 Atrial thrombus I51.3
[2020-12-07] MEDS: METOPROLOL SUCC 25MG EXT REL TAB PO SCH (22:13)
[2020-12-07] MEDS: ATORVASTATIN 40 MG TAB PO SCH (22:14)
[2020-12-08] MEDS: LEVOTHYROXINE SODIUM 88 MCG TABLET PO SCH (06:19)
[2020-12-08] MEDS: ENOXAPARIN 80 MG/0.8 ML SYR SQ SCH (08:38)
[2020-12-08] MEDS: SACUBITRIL-VALSARTAN 24-26 MG TAB PO SCH (08:39)
[2020-12-08] MEDS: RANOLAZINE 500 MG ER TAB PO SCH (08:39)
[2020-12-08] MEDS: rOPINIRole HCL 1 MG TABLET PO SCH (08:39)
[2020-12-08] MEDS: ASPIRIN 81 MG ECTAB PO SCH (08:39)
[2020-12-08] MEDS: PANTOprazole 40 MG TAB PO SCH (08:39)
[2020-12-08] MEDS: FUROSEMIDE 40 MG in SYRINGE 0 ML IV SCH (08:39)
[2020-12-08 08:45] LABS: BUN Creatinine Ratio 18.4 (10-20); Calcium 8.9 mg/dl (8.5-10.1); Creatinine Clr Calc Pharmacy 45.8 ml/min; Est GFR (Non-African American) 55.2 ml/min; Potassium 4.7 mmol/L (3.5-5.1)
[2020-12-08 08:49] LABS: INR 1.4 (0.9-1.1); Prothrombin Time 14.1 Seconds (9.0-12.0)
--- NOTE | 2020-12-08 20:16 | Discharge Summary ---
Date of Service December 08, 2020 Admission HPI Per Admitting Provider Patient is a pleasant 84 year old male with complex medical history of CAD s/p CABG x4 (1988), angioplasty and stenting 2010 with repeat stent ing 2018, s/p PM Medtronic Advisa for symptomatic bradycardia, HTN, Hypothyroidism, GERD, HLD, Erectile Dysfunction Paroxysmal Atrial fibrillation last noted in 2018, TIA, COVID-19 infection May 2020, who presented with worsening shortness of breath over the past 2 days and increased weight gain over the past 10 days of ~16 pounds. Patient has an volume overloaded appearance and history, but also in addition is noted to have concern for a thrombus in the left atrial appendage noted on the stat read of the CTA chest. Patient notes that he has been having worsening shortness of breath for years now and that he has not been able to swim or move as much as he had used to. He notes over the past 2 days he has had a significant worsening of this SOB where he would be barely able to walk up 1 flight of stairs or carry a 25lb bag of cat litter up to steps from his garage to inside of his home without feeling as though he "can't keep going" secondary to the fatigue. He notes that he does not have any chest pain, chest pressure, headache, or dizziness during these episodes, but does feel a bit more unsteady. He also notes that he has not been urinating as much as he typically does and that in the past 10 days or so he has gained roughly 16lbs which he feels is all fluid related. He denies any recent illnesses other than his COVID-19 infection inf May. He notes he has been vaccinated for COVID-19 since. 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 He denies any known history of heart failure. He otherwise notes chills for the past 1 year which have been stable. He states that he was started on levothyroxine 88mcg for this secondary to his hypothyroidism. Currently has no complaints. Denies any fever, chest pain, chest pressure, abdominal pain, dysuria, hematuria, nausea, vomiting, diarrhea. Med Hx: CAD s/p CABG x4 (1988), angioplasty and stenting 2010 with repeat stent ing 2018, s/p PM Medtronic Advisa for symptomatic bradycardia, HTN, Hypothyroidism, GERD, HLD, Erectile Dysfunction Paroxysmal Atrial fibrillation last noted in 2017, TIA, COVID-19 infection May 2020 Surg Hx:CABG x4, Lumbar spine surgery x4, PM placement 2013, Inginal hernia, B/L total knee replacement Soc Hx: Smoked for 16 years, quit 1972, smoked 2-3PPD. Alcohol 1-2 glasses of wine nightly. Denies illicit drug use. Principal Diagnosis acute systolic heart failure left atrial appendage thrombus Discharge Exam The patient appeared well Vital signs as documented. Lungs are clear to auscultation and appear unlabored Cardiac exam, Rhythm is regular.. No murmurs, rubs or gallops. Abdominal exam reveals normal bowel sounds, soft non tender, no masses Extremities are nonedematous and both pedal pulses are normal. Neurologic exam is alert and oriented, no focal loss of strength or sensation Skin is without bruises or rashes Psychologically is without concerns for anxiety or depression. Discharge Data Allergies Allergy/AdvReac Type Severity Reaction Status Date / Time ramipril Allergy Unknown COUGH Verified 12/05/20 20:05 Consultations 12/05/20 21:48 ED Decision to Admit Stat 12/06/20 02:16 Consult Cardiology Routine Ordered Studies 12/05/20 19:42 CT angio chest PE protocol Urgent Hospital Course (1) CONNOLLY (dyspnea on exertion): Patient is a pleasant 84 year old male with complex medical history of CAD s/p CABG x4 (1988), angioplasty and stenting 2010 with repeat stent ing 2018, s/p PM Medtronic Advisa for symptomatic bradycardia, HTN, Hypothyroidism, GERD, HLD, Paroxysmal Atrial fibrillation last noted in 2017, TIA, COVID-19 infection May 2020, who presented with worsening shortness of breath over the past 2 days and increased weight gain over the past 10 days of ~16 pounds. Patient has an volume overloaded appearance and history, but also in addition is noted to have concern for a thrombus in the left atrial appendage noted on the stat read of the CTA chest. Dyspnea on Exertion, suspect secondary to heart failure preserved EF Acute diastolic HF -Chest CTA without PE's on stat read, but noting concern for thrombus in the L atrial appendage cardiology recommends lovenox -> coumadin and coumadin clinic follow up, started lovenox 12/07, if proficient may consider discharge on overlap -Last echo in 12/04/2019 with EF 55-60% with preserved L ventricular systolic f unction -Repeat echo shows preserved EF -resume home lasix, was RX Entresto but will need prior auth, I did call Dr Go office and they will arrange Elevated D-Dimer with suspected thrombus of L atrial appendage -Without PE's noted on chest CTA, however, noting concern for thrombus in the L atrial appendage -Patient has been on Eliquis since recent TIA only stopping use for 5 days in June for his back surgery -Unsure of timeline that thrombus may have formed/been present - transition to therapeutic warfarin with lovenox overlap, set to follow up with anticoagulation clinic will have INR prior to visit (2) Atrial thrombus: as per ncbi.nih.gov Once an KENDRA thrombus is identified, effective anticoagulation is recommended for at least three weeks or until KENDRA thrombus resolution is detected on follow-up TOE will have on warfarin with future discussion if can return to eliquis with Coumadin clinic (3) CAD (coronary artery disease): CAD s/p quadruple bypass and coronary stents -Continue Plavix, Atorvastatin, Metoprolol, Ranolazine (4) Pulmonary hypertension: (5) TIA (transient ischemic attack): takes plavix (6) GERD (gastroesophageal reflux disease): GERD -Continue pantoprazole (7) Hypothyroidism: Hypothyroidism -Continue levothyroxine Code: Full Total Time Total Time Spent Total Time Spent (In Minutes): It required greater than 30 minutes to prepare this patient for discharge Discharge Plan Discharge Items Patient Disposition: Home - Self-Care Reason For Visit: SHORTNESS OF BREATH Discharge Diagnosis: acute diastolic heart failure blood clot in heart- atrial appendage thrombus Activity: Per Instructions section Activity Comment: resume your activity Non-emergency contact: Primary Care Provider and Prototype Special Build Call non-emergency contact if: your symptoms worsen Follow-up/Referrals: Isaias Em MD [Primary Care Provider] - 12/12/20 1:50 pm Diet: Low Sodium (2gm) Ambulatory Orders: Basic Metabolic Panel (Routine) Timeframe: 1 Week Location: Determined by Patient Ordered By: Carlton Triana Prothrombin Time INR (Routine) Timeframe: 1 Week Location: Determined by Patient Ordered By: Carlton Triana Addtl Attending Provider Instructions: Use lovenox injections twice a day overlapping with coumadin, please have a blood test for your coumadin on Saturday12/09/20 and Saturday12/12/20. you will be following up with coagulation clinic for your anticoagulation. With regard to your heart failure. Please follow a low salt diet and continue to weigh youself daily, if you gain 3 pounds in one day or 5 pounds in one week contact Dr Go office for instruction on use of your diuretics. Medication Instructions: * Warfarin is a medicine prescribed to prevent blood clots * Warfarin will thin your blood and help prevent new clots * Take your medications exactly as directed * Never skip a dose. Never take a double dose. If you miss a dose, take it as soon as you remember * It is important for your doctor to monitor your prothrombin time (PT). This is a lab test * Keep your appointment for lab tests Risk of Adverse Drug Reactions and Interactions: * Warfarin increases your risk of bleeding * The food you eat and other medications you take can affect how Warfarin works in your body * Ask your doctor about daily aspirin therapy * It is very important to talk with your doctor about all of the other medicines, antibiotics, vitamins or herbal products that you are taking * All of your medication must be approved by your doctor, including new medicines, as well as medicines you have taken before you started taking Warfarin Diet: * In order for Warfarin to work properly, it is important to keep your intake of Vitamin K as consistent as possible * You should avoid any sudden change in Vitamin K intake * Report any significant changes in your diet or weight to your doctor Call your Primary Care doctor if you experience any of the following: * Swelling or Pain in your leg * Sudden, continuous pain deep in a muscle * Pain that worsens when you are active or when you stand still for a long time * Chest Pain * Sudden Shortness of Breath * Rapid or pounding heart beat * Fainting * Dizziness * Cough with blood or bloody sputum * Sweating more than normal * Bruises * Heavy or uncontrolled bleeding * Blood in your urine, stool or vomit * Black or tarry stools Caring for Your Self at Home: * Avoid sitting, standing or lying down for long periods without moving your legs and feet * When traveling by car, stop to get out and move around at least once every 3 hours * On long airplane, train or bus rides, get up and move around when possible * If you can't get up, wiggle your toes and tighten your calves to keep your blood moving Follow Up: It is important for you to keep your follow up appointments with your medical provider. Addtl Phd Intern Provider Instructions: Please have blood work done at [facility] in 2 days to check your Coumadin blood level (INR) and then again in one week after discharge. The [facility] anticoagulation clinic will be in touch with you. Pending Studies at Discharge: No Stand-Alone Forms: My [facility] Medications and DC Order Prescriptions: New aspirin 81 mg Tablet,Delayed Release (Dr/Ec) 81 mg PO QAM Qty: 30 RF: 0 warfarin 5 mg Tablet 5 mg PO DAILY@1600 Qty: 30 RF: 0 enoxaparin [Lovenox] 80 mg/0.8 mL Syringe 80 mg subcut Q12H Qty: 10 RF: 0 Entresto 24-26 mg Tablet 1 tab PO BID Qty: 60 RF: 5 Continued atorvastatin 80 mg Tablet 80 mg PO HS RF: 0 coQ10 (ubiquinol) 200 mg Capsule 400 mg PO QAM RF: 0 furosemide 20 mg Tablet 20 mg PO DAILY RF: 0 Spiriva with HandiHaler 18 mcg Capsule, W/Inhalation Device 1 cap INHALATION DAILY PRN (Reason: Wheezing) RF: 0 metoprolol succinate 50 mg Tablet Extended Release 24 Hr 75 mg PO HS RF: 0 levothyroxine 88 mcg Capsule 88 mcg PO QAM RF: 0 ropinirole 1 mg Tablet 2 mg PO AMHS RF: 0 pantoprazole 40 mg Tablet,Delayed Release (Dr/Ec) 40 mg PO QAM RF: 0 tadalafil 20 mg Tablet 20 mg PO UD RF: 0 Mucinex DM 30-600 mg Tablet Extended Release 12 Hr 1 tab PO Q12H RF: 0 ranolazine 1,000 mg tablet extended release 12 hr 1,000 mg PO BID RF: 0 Fiber Supplement (inulin) 2 gram Tablet,Chewable 2 tab PO QAM RF: 0 Discontinued clopidogrel 75 mg Tablet 75 mg PO QAM RF: 0 Eliquis 5 mg Tablet 5 mg PO BID RF: 0 Discharge Orders: Discharge Order (Routine); Ordered 12/08/20 Ordered By: Carlton Tate/Other Patient Handouts: What to Know When TakingWarfarin Admission Data Admit Date/Time: 12/05/20 22:59 Attending Provider: Carlton Triana Admit Provider: Carlton Jain Primary Care Provider: Isaias Em Other Providers: Akua Macisa Anthony F. Other Interventions: Discharge Summary Assessment (RN) Last Done: 12/08/20 09:03 Coding Level of Care Code D/C DAY MANAGEMENT >30 MINS Diagnoses CONNOLLY (dyspnea on exertion) R06.00 Atrial thrombus I51.3 CAD (coronary artery disease) I25.10 Pulmonary hypertension I27.20 TIA (transient ischemic attack) G45.9 GERD (gastroesophageal reflux disease) K21.9 Hypothyroidism E03.9
--- NOTE | 2020-12-16 15:04 | Coding Query ---
CONGESTIVE HEART FAILURE To Promote full compliance with coding requirements relating to patient care, physician participation is requested in all cases of inventory clerk uncertainty. Please assist us with the following questions. A diagnosis of Congestive Heart Failure is documented in the patient's medical record. Attending provider's Progress Notes document as heart failure preserved EFAcute diastolic HF, Cardiology Consultation and Cardiology Progress Note document as Diastolic CHF exacerbation, and the Discharge Summary documents in the Principal Diagnosis Area as acute systolic heart failure, and under the Hospital Course as heart failure preserved EFAcute diastolic HF, and down lower under Discharge Plan, Discharge Diagnosis as acute diastolic heart failure. To accurately code this diagnosis and to compare patient severity, we ask that you specify the type of heart failure by placing an X within the parenthesis (x). SYSTOLIC HEART FAILURE - HFrEF ( ) Acute ( ) Chronic ( ) Acute on Chronic ( ) Rheumatic ( ) Unknown DIASTOLIC HEART FAILURE - HFpEF ( ) Acute ( ) Chronic (xx ) Acute on Chronic ( ) Rheumatic ( ) Unknown COMBINED SYSTOLIC AND DIASTOLIC HEART FAILURE ( ) Acute ( ) Chronic ( ) Acute on Chronic ( ) Rheumatic ( ) Unknown Was the CHF Present On Admission? Please check the appropriate box: (xx ) Present on Admission ( ) Not Present On Admission ( ) Clinically undetermined Thank you Elena WOODARD
== END 2020-12-08 11:27 | disposition home or self-care (01) | DRG 293 ==
LOC: ED 11:37 → SUATTDRO 22:59 → 2N 22:59

== ENCOUNTER 2021-04-05 12:47 | Inpatient (IN) ==
--- NOTE | 2021-04-05 13:20 | Emergency Department Note ---
History of Present Illness General Chief complaint: Dizziness Stated complaint: DIZZINESS, FALLS Time Seen by Provider: 04/05/21 13:00 Source: patient Mode of arrival: ambulatory Limitations: no limitations History of Present Illness This patient is a an 85-year-old male who comes in by ambulance after feeling dizzy and falling. He said that it " the same old same old". He was seen here 2 days ago for similar complaints. There is concern that his sodium was on the low side at 129. He is on Coumadin. He does have a tendency to get dizzy and fall. He says he been working with Dr. Palmer again as he does retain fluids and tends to fill up with fluids. He does have some shortness of breath which is mostly dyspnea on exertion when he goes upstairs was got a little bit worse lately he has some increased lower extremity edema. He said they delivered a refrigerator his house today and he was walking to try to help them clear out some space for it and he felt unwell he had a went to sit down and passed out. He denies any trauma. Denies headache or head trauma no loss of conscious. No neck pain. Denies chest pain or chest trauma. No abdominal pain or trauma. No focal numbness or weakness just felt weak in both of his legs. He has no significant weight gain the last couple days. He has had the Covid vaccine and booster as well as a flu vaccine Home Medications Medication Instructions Recorded Confirmed Type atorvastatin 80 mg tablet 80 mg PO HS 11/26/19 04/03/21 History coQ10 (ubiquinol) 200 mg capsule 400 mg PO QAM 11/26/19 04/03/21 History furosemide 20 mg tablet 40 mg PO QAM 11/26/19 04/03/21 History levothyroxine 88 mcg capsule 88 mcg PO QAM 11/26/19 04/03/21 History metoprolol succinate 50 mg 50 mg PO HS 11/26/19 04/03/21 History tablet,extended release 24 hr pantoprazole 40 mg tablet,delayed 40 mg PO QAM 11/26/19 04/03/21 History release ropinirole 1 mg tablet 2 mg PO BID 11/26/19 04/03/21 History tadalafil 20 mg tablet 20 mg PO DIRECTED PRN 11/26/19 04/03/21 History tiotropium bromide 18 mcg capsule 1 cap INHALATION DAILY PRN 11/26/19 04/03/21 History with inhalation device (Spiriva with HandiHaler) ranolazine 1,000 mg 1,000 mg PO BID 07/15/20 04/03/21 History tablet,extended release,12 hr (Ranexa) inulin-sorbitol 2 gram chewable 2 tab PO QAM 07/17/20 04/03/21 History tablet (Fiber Supplement (inulin)) dextromethorphan-guaifenesin 30 1 tab PO Q12H PRN 12/05/20 04/03/21 History mg-600 mg tablet extended [id number] hr (Mucinex DM) aspirin 81 mg tablet,delayed 81 mg PO QAM #30 tab 12/08/20 04/03/21 Rx release sacubitril 24 mg-valsartan 26 mg 1 tab PO BID #60 tab 12/08/20 04/03/21 Rx tablet (Entresto) amiodarone 200 mg tablet 200 mg PO DAILY tab 02/13/21 04/03/21 History warfarin 3 mg tablet See Rx Instructions PO UD tab 03/27/21 04/03/21 History Allergies Allergy/AdvReac Type Severity Reaction Status Date / Time ramipril AdvReac Intermediate COUGH Verified 04/03/21 21:09 Past Med/Surg History Medical History Atrial flutter found 01/05/21 at [facility] CAD (coronary artery disease) s/p [place] 1988 with CABG x 4; stent x 1 2013 and x 1 2016 CHF (congestive heart failure) GERD (gastroesophageal reflux disease) 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 On tadalafil PRN for ED, not pHTN. Sleep apnea Non-compliant with cpap TIA (transient ischemic attack) x3 ~ and then recently ~07/16/2020 TIA, treated at [facility] Emergency room Surgical History History of back surgery X 5 LUMBAR History of cardiac cath TOTAL 2 STENTS-2013 AND 2016-F/U DR RAMIRES History of colonoscopy History of esophagogastroduodenoscopy (EGD) WITH DILITATION History of total bilateral knee replacement History of tympanoplasty (~1983) Hx of CABG (~1988) x4 vessels in [place]. Hx of inguinal hernia surgery Hx of total knee replacement Family History Other No family history of adverse response to anesthesia Social History Smoking Status: Never smoker Tobacco Type: Cigarettes Second Hand Exposure: No; Hx Alcohol Use: Yes Alcohol type: beer, wine and hard liquor Hx Substance Use: No Preferred Language: Indonesian Communication Ability: Effective Acquisitions Assistant Required: No Beliefs That Will Affect Care: None marital status: Current Living Situation: Spouse current occupational status: retired Feels Safe at Home: Yes Assistive Devices: Glasses and Hearing Aid - Bilateral Review of Systems A total of 10 systems reviewed and were otherwise negative Physical Exam Vital Signs Vital Signs - 24 hr 04/05/21 12:37 04/05/21 13:12 Temperature 36.8 C Temperature Source Oral Pulse Rate 60 60 Pulse Rhythm Regular Regular Pulse Strength Normal Respiratory Rate 20 20 Respiratory Effort / Characteristics Non-Labored Respiratory Depth Normal Blood Pressure 98/64 L Blood Pressure Mean 75 Pulse Oximetry 99 98 Oxygen Delivery Method Room Air Room Air Sepsis Recent Fever Within 48 Hours No Sepsis New/Unexplained Change in Mental Status No Sepsis Action Taken by Nursing No Action Required General: Well developed well nourished older male who appears mildly hard of hearing but no acute distress, breathing comfortably on room air. Normal speech nonslurred HEENT: Normal cephalic atraumatic. Pupils are equal round and reactive to light. Extraocular movements are intact. Oropharynx is pink with moist mucous membranes. No swelling of the mouth lips or tongue. Neck: Supple with a midline trachea. No meningeal signs or stiffness, no JVD or bruits. No Stridor. Chest: Clear to auscultation bilaterally. No wheezes or rhonchi. No increased work of breathing. Heart: Regular rate and rhythm without murmurs or gallops. Abdomen: Soft nontender, nondistended without rebound guarding or rigidity. Extremities: No cyanosis clubbing. Trace bilateral lower extremity edema. No calf tenderness or assymetry Spine/Back. Non tender to palpation. No CVA tenderness Skin: Good turgor without rashes. Neurologic exam: Cranial nerves two through 12 are intact. Motor and sensation are intact and symmetrical throughout. No tremor. He has somewhat diminished movement in the right shoulder secondary to chronic issues but no weakness Medical Decision Making Differential Diagnosis Trauma, dehydration, electrolyte or metabolic abnormality, CHF, hyponatremia, central neurologic process, anemia, GI bleed, arrhythmia Medical Records Attestation: I reviewed the patient's medical records. Home Medications Current Medication List: was personally reviewed by me Laboratory Data Attestation: I reviewed the patient's lab results. Result diagrams: 04/05/21 13:02 04/05/21 13:02 Lab Results 04/05/21 04/05/21 04/05/21 Range/Units 13:02 13:02 13:02 WBC 4.72 L (4.8-10.8) K/uL RBC 3.54 L (4.7-6.1) M/uL Hgb 12.1 L (14.0-18.0) g/dL Hct 35.4 L (42-52) % MCV 100.0 (80-100) fL MCH 34.2 H (25-34) pg MCHC 34.2 (32-36) g/dL RDW Std Deviation 62.0 H (36.4-46.3) fL RDW Coeff of Shell 16.8 H (11.5-14.5) % Plt Count 132 (130-400) K/uL MPV 9.4 (7.4-10.4) fL Immature Gran % (Auto) 0.6 % Neut % (Auto) 57.4 % Lymph % (Auto) 24.2 % Fallon % (Auto) 12.5 % Eos % (Auto) 4.7 % Baso % (Auto) 0.6 % Neut # (Auto) 2.71 (1.4-6.5) K/uL Lymph # (Auto) 1.14 L (1.2-3.4) K/uL Fallon # (Auto) 0.59 (0.11-0.59) K/uL Eos # (Auto) 0.22 (0-0.5) K/uL Baso # (Auto) 0.03 (0-0.2) K/uL Immature Gran # (Auto) 0.03 H (0.00-0.02) K/uL PT 32.3 H (9.0-12.0) Seconds INR 3.5 H (0.9-1.1) APTT 42.4 H (21.0-31.0) Seconds PTT Ratio 1.6 Sodium 129 L (136-145) mmol/L Potassium 4.4 (3.5-5.1) mmol/L Chloride 101 (98-107) mmol/L Carbon Dioxide 21 (21-32) mmol/L Anion Gap 7.0 (3-11) BUN 26 H (7-18) mg/dl Creatinine 1.56 H (0.6-1.4) mg/dl Est Cr Clr Drug Dosing Not Reportable Est GFR ( Amer) 46.3 ml/min Est GFR (Non-Af Amer) 39.9 ml/min BUN/Creatinine Ratio 17.0 (10-20) Glucose 103 H (70-99) mg/dl Calcium 8.5 (8.5-10.1) mg/dl Total Bilirubin 1.0 (0.2-1) mg/dl AST 39 H (15-37) U/L ALT 43 (12-78) Alkaline Phosphatase 98 (45-117) U/L Troponin I < 0.015 (0-0.045) ng/ml Total Protein 6.2 L (6.4-8.2) gm/dl Albumin 3.4 (3.4-5.0) gm/dl Globulin 2.8 (2.5-4.0) gm/dl Albumin/Globulin Ratio 1.2 (0.9-2) Lipase 195 (73-393) U/L SARS-CoV-2, RNA, NAAT (NEGATIVE) 04/05/21 Range/Units 13:05 WBC (4.8-10.8) K/uL RBC (4.7-6.1) M/uL Hgb (14.0-18.0) g/dL Hct (42-52) % MCV (80-100) fL MCH (25-34) pg MCHC (32-36) g/dL RDW Std Deviation (36.4-46.3) fL RDW Coeff of Shell (11.5-14.5) % Plt Count (130-400) K/uL MPV (7.4-10.4) fL Immature Gran % (Auto) % Neut % (Auto) % Lymph % (Auto) % Fallon % (Auto) % Eos % (Auto) % Baso % (Auto) % Neut # (Auto) (1.4-6.5) K/uL Lymph # (Auto) (1.2-3.4) K/uL Fallon # (Auto) (0.11-0.59) K/uL Eos # (Auto) (0-0.5) K/uL Baso # (Auto) (0-0.2) K/uL Immature Gran # (Auto) (0.00-0.02) K/uL PT (9.0-12.0) Seconds INR (0.9-1.1) APTT (21.0-31.0) Seconds PTT Ratio Sodium (136-145) mmol/L Potassium (3.5-5.1) mmol/L Chloride (98-107) mmol/L Carbon Dioxide (21-32) mmol/L Anion Gap (3-11) BUN (7-18) mg/dl Creatinine (0.6-1.4) mg/dl Est Cr Clr Drug Dosing Est GFR ( Amer) ml/min Est GFR (Non-Af Amer) ml/min BUN/Creatinine Ratio (10-20) Glucose (70-99) mg/dl Calcium (8.5-10.1) mg/dl Total Bilirubin (0.2-1) mg/dl AST (15-37) U/L ALT (12-78) Alkaline Phosphatase (45-117) U/L Troponin I (0-0.045) ng/ml Total Protein (6.4-8.2) gm/dl Albumin (3.4-5.0) gm/dl Globulin (2.5-4.0) gm/dl Albumin/Globulin Ratio (0.9-2) Lipase (73-393) U/L SARS-CoV-2, RNA, NAAT NEGATIVE (NEGATIVE) Imaging Data Attestation: I personally reviewed and interpreted this imaging study as follows: My Impression: Chest x-raycardiomegaly but no overt pneumothorax CHF or pneumonia Head CTno acute hemorrhage or mass-effect Radiologist's Impression: Chest X-Ray 04/05/21 13:12 XR chest 1V portable CLINICAL HISTORY: Atypical chest pain TECHNIQUE: Single frontal radiograph of the chest was obtained. Comparison: Comparison is made to chest one view 04/03/2021 FINDINGS: Unchanged appearance of median sternotomy wires and dual-lead pacemaker. Cardiomegaly is noted. Faint bibasilar airspace opacities are seen. No evidence of pleural effusion or pneumothorax. IMPRESSION: 1. Faint bilateral lower lung predominant airspace opacities likely represent atelectasis, superimposed pneumonia/aspiration cannot be excluded. 2. Stable cardiomegaly. ACT 112: Negative or not required by law. Electronically signed by: Nael Dawkins M.D. 04/05/2021 2:[address] 04/05/21 13:12 CT head/brain wo con CLINICAL HISTORY: dizzy, falls, on coumadin Technique: Contiguous axial CT images of the head were acquired from the base of the skull to the vertex without intravenous contrast administration. Images were viewed in brain, subdural and bone windows. Automated dose lowering techniques and/or adjustment according to patient size were utilized for this exam. Comparison: Comparison is made to CT head 04/03/2021 Findings: Mild age-related encephalomalacia is seen. There is no acute intracranial hemorrhage or evidence of acute territorial infarction. Neither mass effect, shift of the midline structures, nor abnormal extra-axial fluid collections are shown. Sinuses are clear. Opacification of left mastoid air cells is again noted. The orbits appear normal. There are no acute fractures of the calvaria or scalp swelling. Impression: No acute intracranial hemorrhage, no evidence of acute territorial infarction or other acute intracranial disease process. 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 ACT 112: Negative or not required by law. Electronically signed by: Nael Dawkins M.D. 04/05/2021 1:28 PM ECG Data Attestation: I personally reviewed and interpreted this ECG as follows: Indication: + weakness Rate (beats per minute): 59 Rhythm: + other (Vent paced rhythm) ECG Intervals/blocks: + IVCD ECG [place]aver: + Left axis deviation ECG ST segments: + Nonspecific ST abnormalities ECG Findings: no PACs or no PVCs Comparison ECG Date: from (04/03/21) Change: the following changes noted (Ventricular paced rhythm has replaced biventricular paced rhythm) MDM Narrative This patient comes in as described above he was seen here 2 days ago for similar complaints he fell again today. There are no syncope he has been weak he is on a blood thinner with Coumadin which is concerning he does not his head he looks well on exam. It sounds like is been of difficult balance with his diuresis and cardiac versus renal function. IV access was established and he was placed on a quality assurance monitor body. EKG was obtained and multiple blood testing was obtained. I did a CAT scan of his head. EKG shows a paced rhythm but no ischemic changes. He has no chest pain or shortness of breath. Troponin is not elevated. CAT scan the head shows chronic changes but nothing acute. There is again demonstrated a mastoid process which was deemed to be chronic by ENT the other day. He is not tender on my exam in that area and he is afebrile. He rossy no white count. BUN and creatinine are mildly elevated and sodium is mildly low so he may actually be on the dry side. He was seen for similar complaints the other day went home and had several falls today so I do think he needs to come in. He tells me his door hanger wanted him admitted. I agree with this. I did consult Dr. Schroeder who will see him in the ER for these measures.. Covid testing was negative. Impression & Plan Weakness, Current use of supervisor intermediates anticoagulation, Acute hyponatremia, Frequent falls, Acute renal insufficiency, Lab test negative for COVID-19 virus Discharge Plan Visit Data Chief Complaint: Dizziness Stated Complaint: DIZZINESS, FALLS ED Provider: Jeff Conrad Discharge Problem: Weakness, Current use of supervisor intermediates anticoagulation, Acute hyponatremia, Frequent falls, Acute renal insufficiency, Lab test negative for COVID-19 virus Forms Stand Alone Forms: My [facility] Prescriptions Prescriptions: No Action amiodarone 200 mg tablet 200 mg PO DAILY RF: 0 warfarin 3 mg tablet See Rx Instructions PO UD RF: 0 atorvastatin 80 mg Tablet 80 mg PO HS RF: 0 coQ10 (ubiquinol) 200 mg Capsule 400 mg PO QAM RF: 0 furosemide 20 mg Tablet 40 mg PO QAM RF: 0 Spiriva with HandiHaler 18 mcg Capsule, W/Inhalation Device 1 cap INHALATION DAILY PRN (Reason: Wheezing) RF: 0 metoprolol succinate 50 mg Tablet Extended Release 24 Hr 50 mg PO HS RF: 0 levothyroxine 88 mcg Capsule 88 mcg PO QAM RF: 0 ropinirole 1 mg Tablet 2 mg PO BID RF: 0 pantoprazole 40 mg Tablet,Delayed Release (Dr/Ec) 40 mg PO QAM RF: 0 tadalafil 20 mg Tablet 20 mg PO DIRECTED PRN (Reason: Erectile Dysfunction) RF: 0 Mucinex DM 30-600 mg Tablet Extended Release 12 Hr 1 tab PO Q12H PRN (Reason: Congestion) RF: 0 aspirin 81 mg Tablet,Delayed Release (Dr/Ec) 81 mg PO QAM Qty: 30 RF: 0 Entresto 24-26 mg Tablet 1 tab PO BID Qty: 60 RF: 5 ranolazine [Ranexa] 1,000 mg tablet extended release 12 hr 1,000 mg PO BID RF: 0 Fiber Supplement (inulin) 2 gram Tablet,Chewable 2 tab PO QAM RF: 0 Referrals Referrals: Isaias Em MD [Primary Care Provider] -
[2021-04-05 13:23] LABS: Basophils # (auto) 0.03 K/uL (0-0.2); Basophils % (auto) 0.6 %; Eosinophils # (auto) 0.22 K/uL (0-0.5); Eosinophils % (auto) 4.7 %; Hematocrit (blood only) 35.4 % (42-52); Hemoglobin 12.1 g/dL (14.0-18.0); Immature Granulocytes # (auto) 0.03 K/uL (0.00-0.02); Immature Granulocytes % (auto) 0.6 %; Lymphocytes # (auto) 1.14 K/uL (1.2-3.4); Lymphocytes % (auto) 24.2 %; Mean Corpuscular Hemoglobin 34.2 pg (25-34); Mean Corpuscular Hgb Conc 34.2 g/dL (32-36); Mean Platelet Volume 9.4 fL (7.4-10.4); Monocytes # (auto) 0.59 K/uL (0.11-0.59); Monocytes % (auto) 12.5 %; Neutrophils # (auto) 2.71 K/uL (1.4-6.5); Neutrophils % (auto) 57.4 %; Platelet Count 132 K/uL (130-400); RDW Coefficient of Variation 16.8 % (11.5-14.5); Red Blood Count 3.54 M/uL (4.7-6.1); White Blood Count 4.72 K/uL (4.8-10.8)
--- NOTE | 2021-04-05 13:30 | CT Scan Report ---
CT head/brain wo con CLINICAL HISTORY: dizzy, falls, on coumadin Technique: Contiguous axial CT images of the head were acquired from the base of the skull to the erasto vicenta without intravenous contrast administration. Images were viewed in brain, subdural and bone windo ws. Automated dose lowering techniques and/or adjustment according to patient size were utilized for this exam. Comparison: Comparison is made to CT head 04/03/2021 Findings: Mild age-related encephalomalacia is seen. There is no acute intracranial hemorrhage or evidence of a cute territorial infarction. Neither mass effect, shift of the midline structures, nor abnormal extra -axial fluid collections are shown. Sinuses are clear. Opacification of left mastoid air cells is again noted. The orbits appear normal. There are no acute fractures of the calvaria or scalp swelling. Impression: No acute intracranial hemorrhage, no evidence of acute territorial infarction or other acute intracra nial disease process. 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 ACT 112: Negative or not required by law. Electronically signed by: Nael Dawkins M.D. 04/05/2021 1:28 PM
[2021-04-05 13:42] LABS: INR 3.5 (0.9-1.1); Partial Thromboplastin Ratio 1.6; Partial Thromboplastin Time 42.4 Seconds (21.0-31.0); Prothrombin Time 32.3 Seconds (9.0-12.0)
[2021-04-05 13:44] LABS: Albumin Level 3.4 gm/dl (3.4-5.0); Aspartate Aminotransferase 39 U/L (15-37); Blood Urea Nitrogen 26 mg/dl (7-18); Calcium 8.5 mg/dl (8.5-10.1); Carbon Dioxide 21 mmol/L (21-32); Chloride 101 mmol/L (98-107); Est GFR (African American) 46.3 ml/min; Est GFR (Non-African American) 39.9 ml/min; Glucose 103 mg/dl (70-99); Lipase 195 U/L (73-393); Potassium 4.4 mmol/L (3.5-5.1); Sodium 129 mmol/L (136-145)
[2021-04-05 13:51] LABS: Alanine Aminotransferase 43 (12-78); Albumin Globulin Ratio 1.2 (0.9-2); Alkaline Phosphatase 98 U/L (45-117); Globulin 2.8 gm/dl (2.5-4.0); Total Protein 6.2 gm/dl (6.4-8.2); Troponin I < 0.015 ng/ml (0-0.045)
--- NOTE | 2021-04-05 14:17 | XRay Report ---
XR chest 1V portable CLINICAL HISTORY: Atypical chest pain TECHNIQUE: Single frontal radiograph of the chest was obtained. Comparison: Comparison is made to chest one view 04/03/2021 FINDINGS: Unchanged appearance of median sternotomy wires and dual-lead pacemaker. Cardiomegaly is noted. Faint bibasilar airspace opacities are seen. No evidence of pleural effusion or pneumothorax. IMPRESSION: 1. Faint bilateral lower lung predominant airspace opacities likely represent atelectasis, superimpo sed pneumonia/aspiration cannot be excluded. 2. Stable cardiomegaly. ACT 112: Negative or not required by law. Electronically signed by: Nael Dawkins M.D. 04/05/2021 2:15 PM
--- NOTE | 2021-04-05 14:24 | Electrocardiogram Report ---
Test Reason : Blood Pressure : / mmHG Vent. Rate : 059 BPM Atrial Rate : 057 BPM P-R Int : 000 ms QRS Dur : 222 ms QT Int : 542 ms P-R-T Axes : 000 -56 118 degrees QTc Int : 536 ms Ventricular-paced rhythm Abnormal ECG When compared with ECG of 03-APR-2021 20:04, Vent. rate has decreased BY 12 BPM Confirmed by Ambrocio Wallace ([id number]) on 04/05/2021 2:23:51 PM Referred By: REFERRED SELF Confirmed By:Ambrocio Wallace
--- NOTE | 2021-04-05 16:07 | History & Physical Report ---
Date of Service April 05, 2021 Assessment & Plan (1) Falls frequently: Plan: Multifactorial, consider hyponatremia, deconditioning, volume depletion/orthostasis transient arrhythmia, or medication effect from amiodarone We will asked PT/OT to evaluate Cardiac monitoring Orthostatic vital signs Further treatment as outlined below (2) Acute hyponatremia: Plan: Consider overdiuresis versus SIADH versus other cause We will check urine lytes and osmolality Will hold off furosemide for now but suspect we will need to address this prior to discharge as patient does have significant cardiomyopathy as suggested by hx Orthostatic vital signs (3) Acute renal insufficiency: Plan: Will recheck off of diuretics We will hold off on IV hydration considering patient's complicated cardiac history (4) CAD (coronary artery disease): Plan: Continue medications as per outpatient including aspirin and atorvastatin We will hold Entresto for now as noted in outpatient cardiology documentation (5) TIA (transient ischemic attack): Plan: Stable, continue aspirin as ordered (6) Hypertension: Plan: Blood pressure stable on current medications. Holding Entresto as noted (7) PAF (paroxysmal atrial fibrillation): Plan: Patient is anticoagulated with Coumadin, will hold for now for an INR of 3.5. Would likely need to restart 1-2 days. Recheck in the morning Hold amiodarone as noted in outpatient cardiology documentation will ask cardiology to evaluate for further recommendations History of Present Illness Chief Complaint: falls Primary Care Provider: Isaias Em MD This is an 85-year-old male with past medical history of coronary artery disease, status post CABG, PAF on Coumadin, TIAs, hypertension, hyperlipidemia that presents today with frequent falls. Patient is pleasant and a decent historian. Patient tells me he has been having issues at home falling for several weeks. These are typically not severe but he feels that his legs give out on him. He denies any overt weakness but seems to be more clumsy. He denies ever striking his head or losing consciousness with these falls. He denies any prodromal symptoms such as chest pain, shortness of breath, palpitations, or other issues. He also denies any focal neurological issues such as unilateral weakness or numbness. He feels that the falls are becoming more frequent over the past several days. I did get some records from the emergency room regarding the patient's of recent medical care. Patient had been seen in the ER 1/ with hyponatremia. Serum sodium was found to be 129 and his health teacher, Dr. Isaias Em, recommended that he presents to the emergency room secondary to this in combination with his falls. From ER documentation, appears patient did well in the emergency room and did not have any other significant planes. Therefore, he had been discharged from the ER to close outpatient follow-up. However, patient had several falls in the interim and is now returned the emergency room for further work-up. Of note, I do also see from a health teacher report that there was a concern about vestibular neuropathy from amiodarone or possibly hypotension and had a plan to stop Entresto and amiodarone. However, decision had been made that day for the patient to present to the emergency room for evaluation. I did discuss with the patient who is awake and alert. He is very pleasant we discussed several nonmedical topics. He does not appear to be in any distress and denies blood symptoms. Of note, I do note from his laboratory work that his BUN and creatinine are mildly elevated from his baseline with a BUN of 29 and a creatinine 1.56, previously BUN were in was in the teens with a creatinine of around or below 1. Allergies Allergy/AdvReac Type Severity Reaction Status Date / Time ramipril AdvReac Intermediate COUGH Verified 04/03/21 21:09 Home Medications Medication Instructions Recorded Confirmed Type atorvastatin 80 mg tablet 80 mg PO HS 11/26/19 04/05/21 History coQ10 (ubiquinol) 200 mg capsule 400 mg PO QAM 11/26/19 04/05/21 History furosemide 20 mg tablet 40 mg PO QAM 11/26/19 04/05/21 History levothyroxine 88 mcg capsule 88 mcg PO QAM 11/26/19 04/05/21 History metoprolol succinate 50 mg 50 mg PO HS 11/26/19 04/05/21 History tablet,extended release 24 hr pantoprazole 40 mg tablet,delayed 40 mg PO QAM 11/26/19 04/05/21 History release ropinirole 1 mg tablet 2 mg PO BID 11/26/19 04/05/21 History tadalafil 20 mg tablet 20 mg PO DIRECTED PRN 11/26/19 04/05/21 History tiotropium bromide 18 mcg capsule 1 cap INHALATION DAILY PRN 11/26/19 04/05/21 History with inhalation device (Spiriva with HandiHaler) ranolazine 1,000 mg 1,000 mg PO BID 07/15/20 04/05/21 History tablet,extended release,12 hr (Ranexa) inulin-sorbitol 2 gram chewable 2 tab PO QAM 07/17/20 04/05/21 History tablet (Fiber Supplement (inulin)) dextromethorphan-guaifenesin 30 1 tab PO Q12H PRN 12/05/20 04/05/21 History mg-600 mg tablet extended [id number] hr (Mucinex DM) aspirin 81 mg tablet,delayed 81 mg PO QAM #30 tab 12/08/20 04/05/21 Rx release sacubitril 24 mg-valsartan 26 mg 1 tab PO BID #60 tab 12/08/20 04/05/21 Rx tablet (Entresto) warfarin 3 mg tablet See Rx Instructions PO UD tab 03/27/21 04/05/21 History Past Med/Surg History Medical History Atrial flutter found 01/05/21 at health teacher office CAD (coronary artery disease) s/p [place] 1988 with CABG x 4; stent x 1 2013 and x 1 2016 CHF (congestive heart failure) GERD (gastroesophageal reflux disease) 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 On tadalafil PRN for ED, not pHTN. Sleep apnea Non-compliant with cpap TIA (transient ischemic attack) x3 ~ and then recently ~07/16/2020 TIA, treated at [facility] Emergency room Surgical History History of back surgery X 5 LUMBAR History of cardiac cath TOTAL 2 STENTS-2013 AND 2016-F/U DR RAMIRES History of colonoscopy History of esophagogastroduodenoscopy (EGD) WITH DILITATION History of total bilateral knee replacement History of tympanoplasty (~1983) Hx of CABG (~1988) x4 vessels in [place]. Hx of inguinal hernia surgery Hx of total knee replacement Family History Other No family history of adverse response to anesthesia Social History Smoking Status: Never smoker Tobacco Type: Cigarettes Second Hand Exposure: No; Hx Alcohol Use: Yes Alcohol type: beer, wine and hard liquor Hx Substance Use: No Preferred Language: Ukrainian Communication Ability: Effective Picture Engraver Required: No Beliefs That Will Affect Care: None marital status: Current Living Situation: Spouse current occupational status: retired Feels Safe at Home: Yes Assistive Devices: Glasses and Hearing Aid - Bilateral Review of Systems Constitutional: no fever, no chills, no weakness, no weight loss and no weight gain Eyes: as per Subjective / HPI Respiratory: no cough, no chest congestion, no dyspnea and no dyspnea on exertion Cardiovascular: no chest pain, no orthopnea, no palpitations, no lightheadedness and no edema Gastrointestinal: no abdominal pain, no nausea, no vomiting, no constipation and no diarrhea/loose stools Musculoskeletal: as per Subjective / HPI and + swelling; no back pain, no neck pain, no joint pain, no stiffness and no myalgia Integumentary: no rash Neurologic: + unsteadiness and + falls; no gait abnormality, no localized weakness, no generalized weakness and no dizziness Physical Exam Constitutional: cooperative; no acute distress Neck: trachea midline, no thyromegaly Respiratory: normal respiratory effort Auscultation: lungs clear to auscultation bilaterally; no crackles, no rales, no rhonchi and no wheezes Cardiovascular: Rate/Rhythm: regular rate and regular rhythm Heart Sounds: normal S1 and normal S2 Gastrointestinal (Abdomen): Inspection/Auscultation: abdomen normal to inspection Percussion/Palpation: abdomen soft; abdomen nontender, no guarding, abdomen not rigid and no hepatosplenomegaly Skin: no rashes, warm and dry Results & Data Results & Data ([facility]) Vital Signs (Past 12 Hours) Vital Signs Temp Pulse Resp BP Pulse Ox 04/05/21 15:20 50 L 18 98 04/05/21 15:10 50 L 17 98 04/05/21 15:01 50 L 19 126/58 L 97 04/05/21 15:00 50 L 20 97 04/05/21 14:50 51 L 25 H 98 04/05/21 14:40 55 L 17 98 04/05/21 14:30 51 L 24 123/73 98 04/05/21 14:20 51 L 16 98 04/05/21 14:10 57 L 26 H 98 04/05/21 14:00 50 L 15 117/68 97 04/05/21 13:50 22 97 04/05/21 13:40 23 97 04/05/21 13:39 21 97 04/05/21 13:12 60 20 98 04/05/21 12:37 36.8 C 60 20 98/64 L 99 Laboratory Results Laboratory Results WBC 4.72 K/uL (4.8-10.8) L 04/05/21 13:02 RBC 3.54 M/uL (4.7-6.1) L 04/05/21 13:02 Hgb 12.1 g/dL (14.0-18.0) L 04/05/21 13:02 Hct 35.4 % (42-52) L 04/05/21 13:02 MCV 100.0 fL (80-100) 04/05/21 13:02 MCH 34.2 pg (25-34) H 04/05/21 13:02 MCHC 34.2 g/dL (32-36) 04/05/21 13:02 RDW Std Deviation 62.0 fL (36.4-46.3) H 04/05/21 13:02 RDW Coeff of Shell 16.8 % (11.5-14.5) H 04/05/21 13:02 Plt Count 132 K/uL (130-400) 04/05/21 13:02 MPV 9.4 fL (7.4-10.4) 04/05/21 13:02 Immature Gran % (Auto) 0.6 % 04/05/21 13:02 Neut % (Auto) 57.4 % 04/05/21 13:02 Lymph % (Auto) 24.2 % 04/05/21 13:02 Nelson % (Auto) 12.5 % 04/05/21 13:02 Eos % (Auto) 4.7 % 04/05/21 13:02 Baso % (Auto) 0.6 % 04/05/21 13:02 Neut # (Auto) 2.71 K/uL (1.4-6.5) 04/05/21 13:02 Lymph # (Auto) 1.14 K/uL (1.2-3.4) L 04/05/21 13:02 Nelson # (Auto) 0.59 K/uL (0.11-0.59) 04/05/21 13:02 Eos # (Auto) 0.22 K/uL (0-0.5) 04/05/21 13:02 Baso # (Auto) 0.03 K/uL (0-0.2) 04/05/21 13:02 Immature Gran # (Auto) 0.03 K/uL (0.00-0.02) H 04/05/21 13:02 PT 32.3 Seconds (9.0-12.0) H 04/05/21 13:02 INR 3.5 (0.9-1.1) H 04/05/21 13:02 APTT 42.4 Seconds (21.0-31.0) H 04/05/21 13:02 PTT Ratio 1.6 04/05/21 13:02 Sodium 129 mmol/L (136-145) L 04/05/21 13:02 Potassium 4.4 mmol/L (3.5-5.1) 04/05/21 13:02 Chloride 101 mmol/L (98-107) 04/05/21 13:02 Carbon Dioxide 21 mmol/L (21-32) 04/05/21 13:02 Anion Gap 7.0 (3-11) 04/05/21 13:02 BUN 26 mg/dl (7-18) H 04/05/21 13:02 Creatinine 1.56 mg/dl (0.6-1.4) H 04/05/21 13:02 Est Cr Clr Drug Dosing Not Reportable 04/05/21 13:02 Est GFR ( Amer) 46.3 ml/min 04/05/21 13:02 Est GFR (Non-Af Amer) 39.9 ml/min 04/05/21 13:02 BUN/Creatinine Ratio 17.0 (10-20) 04/05/21 13:02 Glucose 103 mg/dl (70-99) H 04/05/21 13:02 Calcium 8.5 mg/dl (8.5-10.1) 04/05/21 13:02 Total Bilirubin 1.0 mg/dl (0.2-1) 04/05/21 13:02 AST 39 U/L (15-37) H 04/05/21 13:02 ALT 43 (12-78) 04/05/21 13:02 Alkaline Phosphatase 98 U/L (45-117) 04/05/21 13:02 Troponin I < 0.015 ng/ml (0-0.045) 04/05/21 13:02 Total Protein 6.2 gm/dl (6.4-8.2) L 04/05/21 13:02 Albumin 3.4 gm/dl (3.4-5.0) 04/05/21 13:02 Globulin 2.8 gm/dl (2.5-4.0) 04/05/21 13:02 Albumin/Globulin Ratio 1.2 (0.9-2) 04/05/21 13:02 Lipase 195 U/L (73-393) 04/05/21 13:02 SARS-CoV-2, RNA, NAAT NEGATIVE (NEGATIVE) 04/05/21 13:05 Impressions Chest X-Ray 04/05/21 13:12 XR chest 1V portable CLINICAL HISTORY: Atypical chest pain TECHNIQUE: Single frontal radiograph of the chest was obtained. Comparison: Comparison is made to chest one view 04/03/2021 FINDINGS: Unchanged appearance of median sternotomy wires and dual-lead pacemaker. Cardiomegaly is noted. Faint bibasilar airspace opacities are seen. No evidence of pleural effusion or pneumothorax. IMPRESSION: 1. Faint bilateral lower lung predominant airspace opacities likely represent atelectasis, superimposed pneumonia/aspiration cannot be excluded. 2. Stable cardiomegaly. ACT 112: Negative or not required by law. Electronically signed by: Nael Dawkins M.D. 04/05/2021 2:[address] 04/05/21 13:12 CT head/brain wo con CLINICAL HISTORY: dizzy, falls, on coumadin Technique: Contiguous axial CT images of the head were acquired from the base of the skull to the vertex without intravenous contrast administration. Images were viewed in brain, subdural and bone windows. Automated dose lowering techniques and/or adjustment according to patient size were utilized for this exam. Comparison: Comparison is made to CT head 04/03/2021 Findings: Mild age-related encephalomalacia is seen. There is no acute intracranial hemorrhage or evidence of acute territorial infarction. Neither mass effect, shift of the midline structures, nor abnormal extra-axial fluid collections are shown. Sinuses are clear. Opacification of left mastoid air cells is again noted. The orbits appear normal. There are no acute fractures of the calvaria or scalp swelling. Impression: No acute intracranial hemorrhage, no evidence of acute territorial infarction or other acute intracranial disease process. 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 ACT 112: Negative or not required by law. Electronically signed by: Nael Dawkins M.D. 04/05/2021 1:28 PM PG Care Time/CCT Total # of Minutes Spent Total Time Spent with Patient: Total time spent is greater than 50% in coordination of care (as documented) at patient's floor/unit and/or counseling patient: Coding Level of Care Code 34340 Initial Inpt Care Lvl 3 Diagnoses Acute hyponatremia E87.1 Acute renal insufficiency N28.9 CAD (coronary artery disease) I25.10 TIA (transient ischemic attack) G45.9 Hypertension I10 PAF (paroxysmal atrial fibrillation) I48.0 Falls frequently R29.6
[2021-04-05] MEDS ORDERED: ACETAMINOPHEN 325 MG TAB PO PRN (17:15)
[2021-04-05] MEDS ORDERED: UMECLIDINIUM BROMIDE 62.5MCG/BLISTER 7 PUFFS/INHALER INH PRN (17:43)
[2021-04-05] MEDS ORDERED: guaiFENesin 600 MG TABCR PO PRN (17:44)
[2021-04-05] MEDS: rOPINIRole HCL 2 MG TABLET PO SCH (21:00)
[2021-04-05] MEDS: RANOLAZINE 500 MG ER TAB PO SCH (21:00)
[2021-04-05] MEDS: ATORVASTATIN 40 MG TAB PO SCH (21:01)
[2021-04-05] MEDS: METOPROLOL SUCC 50MG EXT REL TAB PO SCH (21:01)
[2021-04-06] MEDS: LEVOTHYROXINE SODIUM 88 MCG TABLET PO SCH (05:43)
[2021-04-06 06:01] LABS: Basophils # (auto) 0.03 K/uL (0-0.2); Basophils % (auto) 0.6 %; Eosinophils # (auto) 0.21 K/uL (0-0.5); Eosinophils % (auto) 4.4 %; Hematocrit (blood only) 34.3 % (42-52); Hemoglobin 11.7 g/dL (14.0-18.0); Immature Granulocytes # (auto) 0.02 K/uL (0.00-0.02); Immature Granulocytes % (auto) 0.4 %; Lymphocytes # (auto) 1.27 K/uL (1.2-3.4); Lymphocytes % (auto) 26.5 %; Mean Corpuscular Hemoglobin 34.4 pg (25-34); Mean Corpuscular Hgb Conc 34.1 g/dL (32-36); Mean Corpuscular Volume 100.9 fL (80-100); Mean Platelet Volume 9.7 fL (7.4-10.4); Monocytes # (auto) 0.56 K/uL (0.11-0.59); Monocytes % (auto) 11.7 %; Neutrophils % (auto) 56.4 %; Platelet Count 135 K/uL (130-400); RDW Standard Deviation 63.1 fL (36.4-46.3); White Blood Count 4.79 K/uL (4.8-10.8)
[2021-04-06 06:19] LABS: INR 3.8 (0.9-1.1); Prothrombin Time 34.6 Seconds (9.0-12.0)
[2021-04-06 06:36] LABS: Blood Urea Nitrogen 28 mg/dl (7-18); Calcium 8.3 mg/dl (8.5-10.1); Carbon Dioxide 20 mmol/L (21-32); Chloride 102 mmol/L (98-107); Est GFR (African American) 55.1 ml/min; Est GFR (Non-African American) 47.5 ml/min; Glucose 91 mg/dl (70-99); Magnesium 1.9 mg/dl (1.8-2.4); Potassium 4.4 mmol/L (3.5-5.1); Sodium 130 mmol/L (136-145)
[2021-04-06 06:40] LABS: Chol HDL Ratio 2; Cholesterol 115 mg/dl (0-200); HDL Cholesterol 63 mg/dl; LDL Cholesterol Calculated 37 mg/dl; Triglycerides 74 mg/dl (0-150); VLDL Cholesterol 15 mg/dl
[2021-04-06] MEDS ORDERED: [UNRECOGNIZED DRUG - OTHER] PO SCH (09:00)
[2021-04-06] MEDS ORDERED: NON-FORMULARY MEDICATION (Coq10 (Ubiquinol) 200 mg Capsule) PO SCH (09:00)
--- NOTE | 2021-04-06 09:25 | Cardiology Consultation ---
Date of Consultation April 06, 2021 Assessment & Plan (1) Falls frequently: IMPRESSION: 1. Diastolic CHF, previous echo 12/2019 with preserved LVF and distal LAD wall motion abnormality with an EF in the range of 55-60% with type 2 diastolic dysfunction and moderate mitral and tricuspid regurgitation. 2. Apical thrombus discovered on CT chest with elevated D-dimer 11/2020 3. Coronary disease status post coronary bypass grafting x4. 4. History of angioplasty and stenting in 2010 with a drug-eluting stent to the [place] marginal branch. 2B. Status post angioplasty and stenting 09/2018, involving a sequential vein graft(to OM1 and OM2) just beyond the touchdown at OM2. 5. Dual-chamber pacemaker (Medtronic Advisa DRMRI compatible) for chronotropic incompetence. 6. Hypertension. 7. Hyperlipidemia. 8. Paroxysmal fibrillation. 9. Symptomatic PVCs which he has had dating back to his stress echo of 2010. 10. Possible TIA May 2015 and June 2020. 11 Worsening lower extremity edema with amlodipine. 12. Chronic stable angina, remaining functional class 2. 13. Left internal carotid artery stenosis of 70% by CTA at [facility]. I agree with Dr. Schroeder's assessment on admission that his falls are likely multifactorial. His amiodarone was discontinued out of concern for vestibular neuritis. There was discussion with Radhika QUEZADA on next steps as Mr. Dc tends to decompensate when in atrial fibrillation. They favor ablation over Tikosyn which would be risky given his comorbidities. His pacemaker interrogation on 04/03 showed 2 episodes of AT/AF since December each lasting 5 minutes. His Afib burden will have to be monitored as the amiodarone washes out of his system. This can be further explored outpatient. He is supratherapeutic with his INR at 3.8 today and his warfarin was appropriately held. He is followed by the [facility] anticoagulation clinic. He is chronically hyponatremic. His furosemide was held since 04/03 and he took one dose of spironolactone on Saturday so far. I will have him start spironolactone 12.5 mg daily in the hopes that it will waste less sodium than the furosemide as his kidney function is improved today. We will have to accept some level of prerenal azotemia to keep him from getting fluid overloaded. He should continue with fluid restriction and further workup for source of his hyponatremia. He has urine sodium and osmolality pending. His Entresto was held for hypotension and elevated creatinine. This can continue to be held. His blood pressure is wnl this morning. His weight is up from his ED visit on 04/03 despite his reported poor po intake. His CXR did not have evidence of pulmonary congestion History of Present Illness Attending Physician: Kathy Alvarado MD History of Present Illness Mr. Dc presented to the Emergency Department on 04/03. He was seen in the cardiology office and when called later in the evening to discuss his hyponatremia, he fell while on the phone call and it was recommended that he present to the ED. He was discharged from there later that evening. On 04/05 he was referred again for further falls. He hit his cheek once earlier in March but otherwise has not hit his head. No loss of consciousness, no dizziness, no lightheadedness. He feels like his legs just give out and that his gait is unreliable. He has not had any focal neurological findings. He reports his sob is at his baseline. No chest pain, no palpitations. Allergies Allergy/AdvReac Type Severity Reaction Status Date / Time ramipril AdvReac Intermediate COUGH Verified 04/03/21 21:09 Home Medications Medication Instructions Recorded Confirmed Type atorvastatin 80 mg tablet 80 mg PO HS 11/26/19 04/05/21 History coQ10 (ubiquinol) 200 mg capsule 400 mg PO QAM 11/26/19 04/05/21 History furosemide 20 mg tablet 40 mg PO QAM 11/26/19 04/05/21 History levothyroxine 88 mcg capsule 88 mcg PO QAM 11/26/19 04/05/21 History metoprolol succinate 50 mg 50 mg PO HS 11/26/19 04/05/21 History tablet,extended release 24 hr pantoprazole 40 mg tablet,delayed 40 mg PO QAM 11/26/19 04/05/21 History release ropinirole 1 mg tablet 2 mg PO BID 11/26/19 04/05/21 History tadalafil 20 mg tablet 20 mg PO DIRECTED PRN 11/26/19 04/05/21 History tiotropium bromide 18 mcg capsule 1 cap INHALATION DAILY PRN 11/26/19 04/05/21 History with inhalation device (Spiriva with HandiHaler) ranolazine 1,000 mg 1,000 mg PO BID 07/15/20 04/05/21 History tablet,extended release,12 hr (Ranexa) inulin-sorbitol 2 gram chewable 2 tab PO QAM 07/17/20 04/05/21 History tablet (Fiber Supplement (inulin)) dextromethorphan-guaifenesin 30 1 tab PO Q12H PRN 12/05/20 04/05/21 History mg-600 mg tablet extended eiamnat18 hr (Mucinex DM) aspirin 81 mg tablet,delayed 81 mg PO QAM #30 tab 12/08/20 04/05/21 Rx release sacubitril 24 mg-valsartan 26 mg 1 tab PO BID #60 tab 12/08/20 04/05/21 Rx tablet (Entresto) warfarin 3 mg tablet See Rx Instructions PO UD tab 03/27/21 04/05/21 History Patient History Medical History Atrial flutter found 01/05/21 at [employer]rugated [employer] office CAD (coronary artery disease) s/p [place] 1988 with CABG x 4; stent x 1 2013 and x 1 2016 CHF (congestive heart failure) GERD (gastroesophageal reflux disease) 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 On tadalafil PRN for ED, not pHTN. Sleep apnea Non-compliant with cpap TIA (transient ischemic attack) x3 ~ and then recently ~07/16/2020 TIA, treated at [facility] Emergency room Surgical History History of back surgery X 5 LUMBAR History of cardiac cath TOTAL 2 STENTS-2013 AND 2016-F/U DR RAMIRES History of colonoscopy History of esophagogastroduodenoscopy (EGD) WITH DILITATION History of total bilateral knee replacement History of tympanoplasty (~1983) Hx of CABG (~1988) x4 vessels in [place]. Hx of inguinal hernia surgery Hx of total knee replacement Family History Other No family history of adverse response to anesthesia Social History Smoking Status: Former smoker Tobacco Type: Cigarettes Second Hand Exposure: No; Hx Alcohol Use: Yes Alcohol type: wine Hx Substance Use: No Preferred Language: Mohawk Communication Ability: Effective Charge Auditor Required: No Beliefs That Will Affect Care: None marital status: Current Living Situation: Spouse current occupational status: retired Feels Safe at Home: Yes Safety Concerns: Feels Safe At This Time Assistive Devices: Cane and Glasses Review of Systems Review of Systems: All systems reviewed & are unremarkable except as noted in HPI & below Physical Exam Constitutional: WD/WN, vitals as above Respiratory: normal respiratory effort, lungs clear to auscultation Cardiovascular: Heart Sounds: + murmur (2/6 rusb) Extremities: no edema Skin: no rashes, warm and dry Neurologic: moves all extremities and awake; not confused Speech / Cognition: normal speech Psychiatric: A+Ox3, euthymic affect Results & Data ([facility]) Vital Signs (Past 12 Hours) Vital Signs Pulse Resp BP Pulse Ox 04/06/21 06:00 51 L 20 113/64 96
[2021-04-06] MEDS: SPIRONOLACTONE 12.5 MG TAB PO SCH (10:56)
[2021-04-06] MEDS: RANOLAZINE 500 MG ER TAB PO SCH ×2 (10:56→20:13)
[2021-04-06] MEDS: rOPINIRole HCL 2 MG TABLET PO SCH ×2 (10:56→20:13)
[2021-04-06] MEDS: ASPIRIN 81 MG ECTAB PO SCH (10:56)
[2021-04-06] MEDS: PANTOprazole 40 MG TAB PO SCH (10:56)
--- NOTE | 2021-04-06 19:27 | Hospitalist Progress Note ---
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 I do not believe this is orthostasis and his orthostatic vital signs were negative. 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 and recommends continuing to hold Lasix (3) Acute hyponatremia: Plan: With slightly worse sodium than baseline of 132-133, sodium here is 129 on admission improved to 130 today Continue holding Lasix Cardiology recommends lowering dose of spironolactone to 12.5 mg daily Follow BMP Urine osmolality high in the 300s, urine sodium 54 but unreliable in the setting of loop diuretic use (4) Acute renal insufficiency: Plan: Mild, creatinine improved today down to 1.3 from 1.56 on admission Continue holding home Lasix Follow BMP (5) CAD (coronary artery disease): Plan: Continue medications as per outpatient including aspirin and atorvastatin We will hold Entresto for now as noted in outpatient cardiology documentation Continue Ranexa Continue metoprolol (6) TIA (transient ischemic attack): Plan: Stable, continue aspirin as ordered (7) Hypertension: Plan: Blood pressure stable on current medications. Holding Entresto as noted Continue spironolactone Continue metoprolol (8) PAF (paroxysmal atrial fibrillation): Plan: Patient is anticoagulated with Coumadin, will continue to hold for elevated INR of 3.8. Was recently started on Coumadin in 11/2020 after found to have a left atrial appendage in the setting of taking Eliquis Hold amiodarone as per cardiology Monitor for development of atrial fibrillation Has pacemaker (9) Current use of correction anticoagulation: Plan: As above Follow INR in the morning (10) Hypothyroidism: Plan: TSH 2.07 Continue home levothyroxine (11) GERD (gastroesophageal reflux disease): Plan: Continue PPI No acute issues (12) CHF (congestive heart failure): Plan: Chronic systolic CHF, EF 35% Seems slightly volume down Holding home Lasix since 04/03 as an outpatient Reduced dose of spironolactone to 12.5 mg daily Continue metoprolol Entresto on hold as an outpatient for low blood pressure Plan: DVT prophylaxis-Coumadin Disposition-continue stay overnight, check MRI/MRA of brain, likely discharged home tomorrow if stable Admission and Anticipated Discharge Date Admission Date: April 05, 2021 Subjective Patient reports he has had longstanding issues with feeling off balance at times, but then has had 3 more recent episodes in the last week where he was walking and felt as if he just could not stand upright and felt very off balance and had some falls. He denies lightheadedness with these episodes, the room is not spinning around him. Yet, he just feels very unstable on his feet. He denies headaches or vision changes. No other focal weakness in the arms or legs. Review of Systems Review of Systems: All systems reviewed & are unremarkable except as noted in HPI & below Physical Exam Constitutional: WD/WN, vitals as above Eyes: PERRL, conjunctivae normal, anicteric sclerae EOM intact bilaterally and + nystagmus (Some nystagmus with lateral gaze to the left) ENMT: external ear and nose normal, oropharynx normal Neck: trachea midline, no thyromegaly Respiratory: normal respiratory effort, lungs clear to auscultation Cardiovascular: Rate/Rhythm: regular rate and regular rhythm Heart Sounds: + murmur (3/6 systolic murmur at the apex) Extremities: + edema (Trace pitting edema of the legs bilaterally) Chest (Breasts): Chest: + pacemaker (Left anterior chest); + abnormal inspection of chest (Midline sternotomy scar) Gastrointestinal (Abdomen): normal bowel sounds, soft, nontender, no hepatosplenomegaly Musculoskeletal: Extremities: extremities normal to inspection; no cyanosis and no clubbing Skin: no rashes, warm and dry Neurologic: PERRL, EOMI, accommodation nl, no face palsy, no dysarthria moves all extremities and awake; no focal motor deficits Speech / Cognition: normal speech, no expressive aphasia and normal cognition Motor/Sensory: no tremor, no pronator drift and no sensory deficit Cranial Nerves: PERRL, normal accommodation, EOM intact bilaterally, normal facial strength, tongue midline, normal gag reflex, able to rotate head bilaterally, able to elevate shoulders bilaterally and symmetric palate elevation; + hearing impairment and + nystagmus Coordination: normal gwggax-jd-roar test and normal tmal-uc-hszp test Psychiatric: A+Ox3, euthymic affect Lymphatic: no lymphedema Results & Data Results & Data ([place]) Vital Signs (Past 12 Hours) Vital Signs Temp Pulse Resp BP Pulse Ox Pulse Ox 04/06/21 17:43 51 L 16 97 97 04/06/21 14:00 36.8 C 59 L 18 112/68 92 04/06/21 10:55 37 C 65 18 136/76 92 04/06/21 09:30 36.8 C 52 L 16 110/68 95 Laboratory Results 04/06/21 04/06/21 04/06/21 Range/Units Unknown 11:15 05:33 WBC (4.8-10.8) K/uL RBC (4.7-6.1) M/uL Hgb (14.0-18.0) g/dL Hct (42-52) % MCV (80-100) fL MCH (25-34) pg MCHC (32-36) g/dL RDW Std Deviation (36.4-46.3) fL RDW Coeff of Shell (11.5-14.5) % Plt Count (130-400) K/uL MPV (7.4-10.4) fL Immature Gran % (Auto) % Neut % (Auto) % Lymph % (Auto) % Rowan % (Auto) % Eos % (Auto) % Baso % (Auto) % Neut # (Auto) (1.4-6.5) K/uL Lymph # (Auto) (1.2-3.4) K/uL Rowan # (Auto) (0.11-0.59) K/uL Eos # (Auto) (0-0.5) K/uL Baso # (Auto) (0-0.2) K/uL Immature Gran # (Auto) (0.00-0.02) K/uL PT (9.0-12.0) Seconds INR (0.9-1.1) Sodium 130 L (136-145) mmol/L Potassium 4.4 (3.5-5.1) mmol/L Chloride 102 (98-107) mmol/L Carbon Dioxide 20 L (21-32) mmol/L Anion Gap 8.0 (3-11) BUN 28 H (7-18) mg/dl Creatinine 1.35 (0.6-1.4) mg/dl Est Cr Clr Drug Dosing Not Reportable Est GFR ( Amer) 55.1 ml/min Est GFR (Non-Af Amer) 47.5 ml/min BUN/Creatinine Ratio 21.0 H (10-20) Glucose 91 (70-99) mg/dl Calcium 8.3 L (8.5-10.1) mg/dl Magnesium 1.9 (1.8-2.4) mg/dl Triglycerides 74 (0-150) mg/dl Cholesterol 115 (0-200) mg/dl LDL Cholesterol, Calc 37 mg/dl VLDL Cholesterol, Calc 15 mg/dl HDL Cholesterol 63 mg/dl Cholesterol/HDL Ratio 2 Urine Osmolality 393 L (500-800) mOsm/kg Ur Random Sodium 57 mmol/L 04/06/21 04/06/21 Range/Units 05:33 05:33 WBC 4.79 L (4.8-10.8) K/uL RBC 3.40 L (4.7-6.1) M/uL Hgb 11.7 L (14.0-18.0) g/dL Hct 34.3 L (42-52) % MCV 100.9 H (80-100) fL MCH 34.4 H (25-34) pg MCHC 34.1 (32-36) g/dL RDW Std Deviation 63.1 H (36.4-46.3) fL RDW Coeff of Shell 17.0 H (11.5-14.5) % Plt Count 135 (130-400) K/uL MPV 9.7 (7.4-10.4) fL Immature Gran % (Auto) 0.4 % Neut % (Auto) 56.4 % Lymph % (Auto) 26.5 % Rowan % (Auto) 11.7 % Eos % (Auto) 4.4 % Baso % (Auto) 0.6 % Neut # (Auto) 2.70 (1.4-6.5) K/uL Lymph # (Auto) 1.27 (1.2-3.4) K/uL Rowan # (Auto) 0.56 (0.11-0.59) K/uL Eos # (Auto) 0.21 (0-0.5) K/uL Baso # (Auto) 0.03 (0-0.2) K/uL Immature Gran # (Auto) 0.02 (0.00-0.02) K/uL PT 34.6 H (9.0-12.0) Seconds INR 3.8 H (0.9-1.1) Sodium (136-145) mmol/L Potassium (3.5-5.1) mmol/L Chloride (98-107) mmol/L Carbon Dioxide (21-32) mmol/L Anion Gap (3-11) BUN (7-18) mg/dl Creatinine (0.6-1.4) mg/dl Est Cr Clr Drug Dosing Est GFR ( Amer) ml/min Est GFR (Non-Af Amer) ml/min BUN/Creatinine Ratio (10-20) Glucose (70-99) mg/dl Calcium (8.5-10.1) mg/dl Magnesium (1.8-2.4) mg/dl Triglycerides (0-150) mg/dl Cholesterol (0-200) mg/dl LDL Cholesterol, Calc mg/dl VLDL Cholesterol, Calc mg/dl HDL Cholesterol mg/dl Cholesterol/HDL Ratio Urine Osmolality (500-800) mOsm/kg Ur Random Sodium mmol/L PG Care Time/CCT Total # of Minutes Spent Total Time Spent with Patient: Total time spent is greater than 50% in coordination of care (as documented) at patient's floor/unit and/or counseling patient: Coding Level of Care Code 29717 Subseq Hosp Care Lvl 3 Diagnoses Falls frequently R29.6 Acute hyponatremia E87.1 Acute renal insufficiency N28.9 CAD (coronary artery disease) I25.10 TIA (transient ischemic attack) G45.9 Hypertension I10 PAF (paroxysmal atrial fibrillation) I48.0 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
[2021-04-06] MEDS: METOPROLOL SUCC 50MG EXT REL TAB PO SCH (20:13)
[2021-04-06] MEDS: ATORVASTATIN 40 MG TAB PO SCH (20:13)
[2021-04-07 04:41] LABS: Basophils # (auto) 0.02 K/uL (0-0.2); Basophils % (auto) 0.4 %; Eosinophils # (auto) 0.24 K/uL (0-0.5); Hematocrit (blood only) 35.5 % (42-52); Hemoglobin 12.3 g/dL (14.0-18.0); Immature Granulocytes # (auto) 0.02 K/uL (0.00-0.02); Immature Granulocytes % (auto) 0.4 %; Lymphocytes # (auto) 1.29 K/uL (1.2-3.4); Lymphocytes % (auto) 27.1 %; Mean Corpuscular Hemoglobin 34.6 pg (25-34); Mean Corpuscular Hgb Conc 34.6 g/dL (32-36); Mean Platelet Volume 9.7 fL (7.4-10.4); Monocytes # (auto) 0.58 K/uL (0.11-0.59); Monocytes % (auto) 12.2 %; Neutrophils # (auto) 2.61 K/uL (1.4-6.5); Neutrophils % (auto) 54.9 %; Platelet Count 126 K/uL (130-400); RDW Coefficient of Variation 16.7 % (11.5-14.5); RDW Standard Deviation 62.5 fL (36.4-46.3); Red Blood Count 3.55 M/uL (4.7-6.1); White Blood Count 4.76 K/uL (4.8-10.8)
[2021-04-07 04:50] LABS: INR 3.1 (0.9-1.1); Prothrombin Time 28.4 Seconds (9.0-12.0)
[2021-04-07 05:06] LABS: BUN Creatinine Ratio 21.8 (10-20); Calcium 8.4 mg/dl (8.5-10.1); Creatinine Clr Calc Pharmacy 49.4 ml/min; Est GFR (African American) 61.1 ml/min; Est GFR (Non-African American) 52.7 ml/min; Potassium 4.6 mmol/L (3.5-5.1)
[2021-04-07 05:30] LABS: Echinocytes 1+
[2021-04-07 05:50] LABS: Folate (Folic Acid) 4.8 ng/ml (>5.38)
[2021-04-07] MEDS: LEVOTHYROXINE SODIUM 88 MCG TABLET PO SCH (06:20)
--- NOTE | 2021-04-07 06:32 | Electrocardiogram Report ---
Test Reason : Blood Pressure : / mmHG Vent. Rate : 050 BPM Atrial Rate : 054 BPM P-R Int : 000 ms QRS Dur : 214 ms QT Int : 558 ms P-R-T Axes : 000 -53 114 degrees QTc Int : 508 ms Poor data quality, interpretation may be adversely affected Ventricular-paced rhythm Abnormal ECG When compared with ECG of 05-APR-2021 12:53, Vent. rate has decreased BY 9 BPM Confirmed by Vaibhav Craig ([id number]) on 04/07/2021 6:32:25 AM Referred By: REFERRED SELF Confirmed By:Vaibhav Craig
[2021-04-07] MEDS: ASPIRIN 81 MG ECTAB PO SCH (08:17)
[2021-04-07] MEDS: SPIRONOLACTONE 12.5 MG TAB PO SCH (08:17)
[2021-04-07] MEDS: rOPINIRole HCL 2 MG TABLET PO SCH ×2 (08:17→20:51)
[2021-04-07] MEDS: RANOLAZINE 500 MG ER TAB PO SCH ×2 (08:17→20:50)
[2021-04-07] MEDS: PANTOprazole 40 MG TAB PO SCH (08:17)
[2021-04-07] MEDS ORDERED: GADOBUTROL 65ML VIAL IV ONE (14:03)
--- NOTE | 2021-04-07 14:14 | Magnetic Resonance Report ---
MR ANGIOGRAM OF THE NECK COMBO CLINICAL HISTORY: Dizziness. COMPARISON STUDY: CT angiogram of the neck dated 07/15/2020. TECHNIQUE: Axial 3-D yfjs-ry-jwzzzx MR angiography of the neck is performed. Subsequently, following the IV administration of 9.4 cc of Gadavist. Coronal MR angiogram of the neck was performed to corrob orate the findings. 3-D reformats are created and assessed. All measurements were calculated based on NASCET criteria. Examination is degraded by motion artifact. FINDINGS: Visualized portions of the thoracic aorta are normal in caliber. The aortic arch demonstrat es standard 3-vessel anatomy. The subclavian arteries are widely patent bilaterally. The right common carotid artery is widely patent, as are the right internal and external carotid arteries. There is t ortuosity of the right internal carotid artery. The left common carotid artery is widely patent. Ther e is at least 50% focal stenosis of the proximal left internal carotid artery secondary to calcified plaque. The remainder of the internal carotid artery, as well as the there is tortuosity of the inter nal carotid artery. The external carotid artery are patent. The vertebral arteries are widely patent and codominant. There is at least moderate focal stenosis of the intracranial right vertebral artery at the skull base, best seen on coronal image #107. The remaining visualized intracranial vessels kirill ear patent. IMPRESSION: 1. There is at least 50% focal stenosis at the origin of the left internal carotid artery. 2. There is no evidence of stenosis within the right carotid arterial system. 3. The vertebral arteries are widely patent. 4. There is at least moderate focal stenosis of the intracranial right vertebral artery at the skull base. ACT 112: Negative or not required by law. Electronically signed by: Loyd Ayers M.D. 04/07/2021 2:13 PM
--- NOTE | 2021-04-07 14:18 | Magnetic Resonance Report ---
MR brain wo con, MR angio head wo con HISTORY: 85 years-old Male ataxia, rule out CVA . Acute strokelike symptoms COMPARISON: Head CT 04/05/2020, brain MRI 05/08/2012, CTA head and neck 07/15/2020. TECHNIQUE: Multiplanar multisequence MRI of the brain was obtained without the use of IV contrast. MR A of the head was also obtained without the use of IV contrast utilizing 3-D obnb-ey-pvxglm sequencin g with MIP reformats. All measurements were obtained according to NASCET criteria. FINDINGS: MRI BRAIN: Telegraph Repeater Installer localizer images demonstrate no gross extracranial abnormality. There is no restricted diffusio n to suggest acute or subacute infarct. Midline structures appear unremarkable. Mild involutional vero nges. Mild T2/FLAIR hyperintense foci throughout the white matter suggest chronic microvascular ische elvie disease. The study is motion degraded. No acute intracranial hemorrhage, midline shift, abnormal extra-axial collection, hydrocephalus or new intracranial mass. Cortical based 1.2 x 0.8 cm ovoid cir cumscribed T2 hyperintense lesion of the left parietal lobe on image 15 series 7 is stable dating shawn k to least 2012 suggestive of benign etiology. The cerebral venous sinuses and major arterial flow voids appear to be patent. Mastoid air cells and paranasal sinuses appear generally clear. The skull, orbits and soft tissues are unremarkable. MRA HEAD: Motion degraded exam. The common carotid arteries, middle and anterior cerebral arteries appear paten t. Patent left vertebral artery. Multifocal stenoses within the distal right vertebral artery are bet ter characterized on the comparison CTA studies. The basilar and posterior cerebral arteries appear p atent. There is origin of the left posterior cerebral artery. IMPRESSION: 1. No acute intracranial abnormality. No acute or subacute infarct. 2. Age-related involutional changes with mild chronic microvascular ischemic disease. 3. Multifocal stenoses within the distal right vertebral artery are better characterized on the eliceo rison CTA head and neck studies from 07/15/2020. ACT 112: Negative or not required by law. The above report was generated using voice recognition software. It may contain grammatical, syntax o r spelling errors. Electronically signed by: Ricky Lau M.D. 04/07/2021 2:17 PM
--- NOTE | 2021-04-07 19:14 | Hospitalist Progress Note ---
Date of Service April 07, 2021 Assessment & Plan (1) Ataxia: Plan: I do worry some about his vertebral-basilar stenosis, although cardiology is fairly convinced this relates to the amiodarone. Given that his intracranial stenosis, it would likely be very difficult to safely intervene on, or even find someone who could safely intervene on. Given his bleeding previously when on Plavix, and the fact that he is currently on aspirin and Coumadin, I would hesitate to add Plavix to his aspirin and Coumadin due to excess bleed risk. For now follow off of amiodaroneif his dizziness resolves, then the 2 would likely be correlated. However, if the dizziness persists, then would need to try to find someone who might be able to evaluate for intervention on his vertebral stenosis. Fortunately no stroke on MRI (2) Falls frequently: Plan: Is safe for home/home health per PT/OT. Patient getting more comfortable with the idea of going home. (3) Acute hyponatremia: Plan: Generally runs low, 129 now, likely related to meds/and/or intake. Follow periodically (4) Acute renal insufficiency: Plan: Creatinine 1.24 resume Lasix (5) CAD (coronary artery disease): Plan: Continue medications as per outpatient including aspirin and atorvastatin We will hold Entresto for now as noted in outpatient cardiology documentation Continue Ranexa Continue metoprolol Suspect his dyspnea on exertion relates to his chronic systolic and diastolic (valvular) CHFalthough he does not appear or examined to be decompensated at this time (6) TIA (transient ischemic attack): Plan: Stable, continue aspirin as ordered (7) Hypertension: Plan: Blood pressure stable on current medications. Holding Entresto as noted Continue spironolactone Continue metoprolol (8) PAF (paroxysmal atrial fibrillation): Plan: Patient is anticoagulated with Coumadin, will continue to hold for elevated INR of 3.8. 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: Plan: INR 3.1 (10) Hypothyroidism: Plan: TSH 2.07 Continue home levothyroxine (11) GERD (gastroesophageal reflux disease): Plan: Continue PPI No acute issues (12) CHF (congestive heart failure): Plan: Chronic systolic CHF, EF 35% As aboveit looks to be euvolemic at this time, suspect chronic dyspnea on exertion relates to this Reduced dose of spironolactone to 12.5 mg daily Continue metoprolol Entresto on hold as an outpatient for low blood pressure Plan: DVT prophylaxis-Coumadin Dispositionstable for home, working towards home, building a plan that patient will be comfortable with Admission and Anticipated Discharge Date Admission Date: April 05, 2021 Subjective Ongoing dizzy spells whenever walking from bed to bathroom. No falls in the hospital. Most of his dizzy spells seem to be whenever he is up and active, very few at rest, whenever they come on it seems to be with activity, although he does not 100% correlate to this. Does seem to get better over time/self resolved. Episodes usually at least a day or so apart, but seemed to be happening more often and more intensely. Separately notes of progressive dyspnea on exertion, this seems to have been worsening over the last year or more. No ringing in his ears, no numbness in his feet. Whenever he gets up in the middle of the night to void he is not very risky to Thal then. Review of Systems Review of Systems: All systems reviewed & are unremarkable except as noted in HPI & below Physical Exam Physical Exam: In general he is awake and alert pleasant no distress. HEENT normocephalic atraumatic mucous membranes moist. Cardio is regular I cannot really hear any rubs murmurs or gallops. Lungs are clear to auscultation bilaterally no rales rhonchi or wheezes good effort. Skin shows no rashes no pallor or icterus. Neuro shows cranial nerves II through XII be grossly intact gross motor and sensory are intact, including good proprioception in his feet. Skin without rashes, pallor, icterus. Results & Data Results & Data ([facility]) Vital Signs (Past 12 Hours) Vital Signs Temp Pulse Resp BP Pulse Ox Pulse Ox 04/07/21 17:00 95 04/07/21 16:00 98.4 F 59 L 18 124/79 96 04/07/21 11:22 97.7 F 50 L 18 109/62 94 04/07/21 07:55 98.1 F 52 L 18 102/67 96 PG Care Time/CCT Total # of Minutes Spent Total Time Spent with Patient: Total time spent is greater than 50% in coordination of care (as documented) at patient's floor/unit and/or counseling patient: Coding Level of Care Code 81735 Subseq Hosp Care Lvl 3 Diagnoses Ataxia R27.0 Falls frequently R29.6 Acute hyponatremia E87.1 Acute renal insufficiency N28.9 CAD (coronary artery disease) I25.10 TIA (transient ischemic attack) G45.9 Hypertension I10 PAF (paroxysmal atrial fibrillation) I48.0 Current use of terminal superintendent anticoagulation Z79.01 Hypothyroidism E03.9 GERD (gastroesophageal reflux disease) K21.9 CHF (congestive heart failure) I50.9 Heart failure chronicity: acute Heart failure type: unspecified (1) CHF (congestive heart failure) Heart failure chronicity: acute Heart failure type: unspecified Qualified Code(s): I50.9 - Heart failure, unspecified
[2021-04-07] MEDS: ATORVASTATIN 40 MG TAB PO SCH (20:50)
[2021-04-07] MEDS: METOPROLOL SUCC 50MG EXT REL TAB PO SCH (20:50)
[2021-04-08] MEDS: LEVOTHYROXINE SODIUM 88 MCG TABLET PO SCH (06:18)
[2021-04-08 06:23] LABS: BUN Creatinine Ratio 19.6 (10-20); Calcium 8.5 mg/dl (8.5-10.1); Creatinine Clr Calc Pharmacy 51.1 ml/min; Est GFR (African American) 63.5 ml/min; Est GFR (Non-African American) 54.8 ml/min; Potassium 4.7 mmol/L (3.5-5.1)
[2021-04-08 06:26] LABS: INR 2.4 (0.9-1.1); Prothrombin Time 22.6 Seconds (9.0-12.0)
[2021-04-08] MEDS: RANOLAZINE 500 MG ER TAB PO SCH (08:36)
[2021-04-08] MEDS: rOPINIRole HCL 2 MG TABLET PO SCH (08:36)
[2021-04-08] MEDS: SPIRONOLACTONE 12.5 MG TAB PO SCH (08:36)
[2021-04-08] MEDS: PANTOprazole 40 MG TAB PO SCH (08:36)
[2021-04-08] MEDS: ASPIRIN 81 MG ECTAB PO SCH (08:36)
[2021-04-08] MEDS ORDERED: FUROSEMIDE 20 MG TAB PO SCH (09:00)
--- NOTE | 2021-04-08 20:32 | Discharge Summary ---
Date of Service April 08, 2021 Admission HPI Per Admitting Provider This is an 85-year-old male with past medical history of coronary artery disease, status post CABG, PAF on Coumadin, TIAs, hypertension, hyperlipidemia that presents today with frequent falls. Patient is pleasant and a decent historian. Patient tells me he has been having issues at home falling for several weeks. These are typically not severe but he feels that his legs give out on him. He denies any overt weakness but seems to be more clumsy. He denies ever striking his head or losing consciousness with these falls. He denies any prodromal symptoms such as chest pain, shortness of breath, palpitations, or other issues. He also denies any focal neurological issues such as unilateral weakness or numbness. He feels that the falls are becoming more frequent over the past several days. I did get some records from the emergency room regarding the patient's of recent medical care. Patient had been seen in the ER 1/ with hyponatremia. Serum sodium was found to be 129 and his developmental specialist, Dr. Isaias Em, recommended that he presents to the emergency room secondary to this in combination with his falls. From ER documentation, appears patient did well in the emergency room and did not have any other significant planes. Therefore, he had been discharged from the ER to close outpatient follow-up. However, patient had several falls in the interim and is now returned the emergency room for further work-up. 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 However, decision had been made that day for the patient to present to the emergency room for evaluation. I did discuss with the patient who is awake and alert. He is very pleasant we discussed several nonmedical topics. He does not appear to be in any distress and denies blood symptoms. Of note, I do note from his laboratory work that his BUN and creatinine are mildly elevated from his baseline with a BUN of 29 and a creatinine 1.56, previously BUN were in was in the teens with a creatinine of around or below 1. Principal Diagnosis unsteadiness Discharge Exam In general he is awake and alert pleasant no distress. HEENT normocephalic atraumatic mucous membranes moist. Breathing unlabored no accessory muscle use good effort. Skin shows no rashes no pallor or icterus. Neuro without focal deficits. 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 Given that his intracranial stenosis, it would likely be very difficult to safely intervene on, or even find someone who could safely intervene on. Given his bleeding previously when on Plavix, and the fact that he is currently on aspirin and Coumadin, I would hesitate to add Plavix to his aspirin and Coumadin due to excess bleed risk. For now follow off of amiodaroneif his dizziness resolves, then the 2 would likely be correlated. However, if the dizziness persists, then would need to try to find someone who might be able to evaluate for intervention on his vertebral stenosisasking nurse navigator to help in this regard Fortunately no stroke on MRI (2) Falls frequently: Is safe for home/home health per PT/OT. Patient comfortable with the idea of going home. (3) Acute hyponatremia: Generally runs low, 129 now, likely related to meds/and/or intake. Follow periodically as outpatient (4) Acute renal insufficiency: Follow periodically as outpatient (5) CAD (coronary artery disease): Continue medications as per outpatient including aspirin and atorvastatin We will hold Entresto for now as noted in outpatient cardiology documentation (low blood pressures) Continue Ranexa Continue metoprolol Suspect his dyspnea on exertion relates to his chronic systolic and diastolic (valvular) CHFalthough he does not appear or examined to be decompensated at this time (6) TIA (transient ischemic attack): Stable, continue aspirin as ordered (7) Hypertension: Blood pressure stable on current medications. Holding Entresto as noted (8) PAF (paroxysmal atrial fibrillation): Rate controlled, anticoagulated. Amiodarone stopped, outpatient [facility] follow-up. (9) Current use of [facility] anticoagulation: Next INR next week (10) Hypothyroidism: TSH 2.07 Continue home levothyroxine (11) GERD (gastroesophageal reflux disease): Continue PPI No acute issues (12) CHF (congestive heart failure): Chronic systolic CHF, EF 35% As aboveit looks to be euvolemic at this time, suspect chronic dyspnea on exertion relates to this Reduced dose of spironolactone to 12.5 mg daily Continue metoprolol Entresto on hold as an outpatient for low blood pressure DVT prophylaxis-Coumadin Dispositionstable for home, working towards home, building a plan that patient will be comfortable with Total Time Total Time Spent Total Time Spent (In Minutes): <30 Discharge Plan Discharge Items Patient Disposition: Home - Self-Care Reason For Visit: FREQUENT FALLS Discharge Diagnosis: unsteadiness - see below Activity: Resume your previous activity Activity Comment: take safety precautions first Non-emergency contact: Primary Care Provider, Specialist and Adjuster Leader Call non-emergency contact if: you have any medication questions and your symptoms worsen Follow-up/Referrals: Isaias Em MD [Primary Care Provider] - Diet: Heart Healthy and Low Sodium (2gm) Addtl Attending Provider Instructions: unsteady spells -your unsteadiness appears to have been one of two things: either a side effect to the amiodarone, or possibly related to the tightness in your vertebral artery ---amiodarone - it has been stopped, but it is a VERY long lasting medication - so it can easily take a month before we start to see side effects wearing off. to that end, the main "proof" that the amiodarone was culprit will be if you start to feel better over time as it gradually wears off. as we discussed, use the beginning of may as your first real referendum on this ---blockage in vertebral artery - sometimes blockages in vertebral arteries can cause TIA type symptoms to the back of the brain, which can result in dizziness. the fact that you have had worsening symptoms but the MRI did NOT show any actual area of stroke is reassurring, but it doesn't totally rule out this as a culprit. we are going to work on getting you to a neurovascular surgeon to evaluate this. the first part will be their opinion on if they feel the blockage is significant (i'm concerned, but since we also have a viable alternate explanation with the amiodarone, and the blockage has been there a while but the symptoms are new, i'm not 100% convinced, so their opinion will be valuable), and then the second part will be if they feel it is culprit/significant, then they can determine if they're able to intervene. because this referral process will take a while, during that time, as the amiodarone wears off, we'll also probably get valuable information as it relates to the unsteadiness anyway --> since if your unsteadiness improves while you're off the amiodarone, it would be less likely that the blockage is culprit --while we are working the above measures to improve your situation, please remeber to prioritize safety first - one of the fastest ways things could worsen for you would really come if the spells cause you to fall, and the falls cause an injury -- so move slowly, and always think about where you're at / what to do to prevent a fall. afib -since you're off the amiodarone, there is a possibility that the afib will start to speed up your heart rate. it's not a certainty that this will happen, but it is possible. to that end, keep an eye on your heart rates (spot check 1- 2 times a day, and if you feel symptoms like palpitations or shortness of breath) and follow with Dr Muñoz for now Dr Muñoz also has you off your entresto - this was because your blood pressures were running a little on the low side. when you check your heart rates, also check your blood pressure, so that as you and Dr Muñoz review the numbers you can make a judgement call on when/if to restart the entresto Pending Studies at Discharge: No Stand-Alone Forms: My [facility], Smoking Cessation Medications and DC Order Prescriptions: Continued warfarin 3 mg tablet See Rx Instructions PO UD RF: 0 atorvastatin 80 mg Tablet 80 mg PO HS RF: 0 coQ10 (ubiquinol) 200 mg Capsule 400 mg PO QAM RF: 0 furosemide 20 mg Tablet 40 mg PO QAM RF: 0 Spiriva with HandiHaler 18 mcg Capsule, W/Inhalation Device 1 cap INHALATION DAILY PRN (Reason: Wheezing) RF: 0 metoprolol succinate 50 mg Tablet Extended Release 24 Hr 50 mg PO HS RF: 0 levothyroxine 88 mcg Capsule 88 mcg PO QAM RF: 0 ropinirole 1 mg Tablet 2 mg PO BID RF: 0 pantoprazole 40 mg Tablet,Delayed Release (Dr/Ec) 40 mg PO QAM RF: 0 tadalafil 20 mg Tablet 20 mg PO DIRECTED PRN (Reason: Erectile Dysfunction) RF: 0 aspirin 81 mg Tablet,Delayed Release (Dr/Ec) 81 mg PO QAM Qty: 30 RF: 0 ranolazine [Ranexa] 1,000 mg tablet extended release 12 hr 1,000 mg PO BID RF: 0 Fiber Supplement (inulin) 2 gram Tablet,Chewable 2 tab PO QAM RF: 0 Discontinued Mucinex DM 30-600 mg Tablet Extended Release 12 Hr 1 tab PO Q12H PRN (Reason: Congestion) RF: 0 Entresto 24-26 mg Tablet 1 tab PO BID Qty: 60 RF: 5 Discharge Orders: Discharge Order (Routine); Ordered 04/08/21 Ordered By: Solo Sanchez Admission Data Admit Date/Time: 04/05/21 16:19 Attending Provider: Solo Sanchez Admit Provider: Tani Schroeder Primary Care Provider: Isaias Em Other Providers: Kathy Alvarado ; Tani Schroeder ; Maged Muñoz Other Interventions: Discharge Summary Assessment (RN) Last Done: 04/08/21 16:45 Coding Level of Care Code D/C DAY MANAGEMENT <30 MINS Diagnoses Ataxia R27.0 Falls frequently R29.6 Acute hyponatremia E87.1 Acute renal insufficiency N28.9 CAD (coronary artery disease) I25.10 TIA (transient ischemic attack) G45.9 Hypertension I10 PAF (paroxysmal atrial fibrillation) I48.0 Current use of [facility] anticoagulation Z79.01 Hypothyroidism E03.9 GERD (gastroesophageal reflux disease) K21.9 CHF (congestive heart failure) I50.9 Heart failure chronicity: acute Heart failure type: unspecified
== END 2021-04-08 17:40 | disposition home or self-care (01) | DRG 92 ==
LOC: ED 12:47 → EDINP 16:19 → SUATTDRO 16:19 → EDINP 18:30 → 2S 04-08 12:42
DX: E87.1 Hypo-osmolality and hyponatremia; I48.92 Unspecified atrial flutter; I45.89 Other specified conduction disorders; Z79.899 Other long term (current) drug therapy; E78.5 Hyperlipidemia, unspecified; Z95.1 Presence of aortocoronary bypass graft; I50.42 Chronic combined systolic (congestive) and diastolic (congestive) heart failure; Z86.79 Personal history of other diseases of the circulatory system; I27.20 Pulmonary hypertension, unspecified; R27.0 Ataxia, unspecified; Z95.5 Presence of coronary angioplasty implant and graft; I48.0 Paroxysmal atrial fibrillation; Z79.890 Hormone replacement therapy; R26.81 Unsteadiness on feet; Z95.0 Presence of cardiac pacemaker; Z79.82 Long term (current) use of aspirin; R29.6 Repeated falls; N17.9 Acute kidney failure, unspecified; I25.118 Atherosclerotic heart disease of native coronary artery with other forms of angina pectoris; H81.20 Vestibular neuronitis, unspecified ear; I08.1 Rheumatic disorders of both mitral and tricuspid valves; K21.9 Gastro-esophageal reflux disease without esophagitis; I11.0 Hypertensive heart disease with heart failure; Z79.01 Long term (current) use of anticoagulants; N28.9 Disorder of kidney and ureter, unspecified; Z86.73 Personal history of transient ischemic attack (TIA), and cerebral infarction without residual deficits; I25.2 Old myocardial infarction; E03.9 Hypothyroidism, unspecified; Z20.822 Contact with and (suspected) exposure to COVID-19; Z88.8 Allergy status to other drugs, medicaments and biological substances; I65.09 Occlusion and stenosis of unspecified vertebral artery; T46.2X5A Adverse effect of other antidysrhythmic drugs, initial encounter

== ENCOUNTER 2021-05-14 17:41 | Inpatient (IN) ==
[2021-05-14] MEDS ORDERED: ALBUT/IPRATROP 3MG/0.5MG NEB 3 ML VIAL NEB STA (18:09)
--- NOTE | 2021-05-14 18:15 | Emergency Department Note ---
Impression & Plan Acute congestive heart failure, COPD exacerbation ED Provider Note Name: YULIET KONG Age: 85 Sex: M Arrives Via: Ambulance Informant: Patient ED Provider: David Oshea MD Chief Complaint: shortness of breath Impression: As per impressions above Medical Decision Makin-year-old gentleman arrives for evaluation of shortness of breath. Patient with complex past cardiac history and some underlying COPD. By examination he has some diffuse wheezing though also is noted to have some edema in his legs and some crackles on his lung exam. He was given a DuoNeb and does appear to be breathing slightly better with no further wheezing though he is still dyspneic. He has crackles and his chest x-ray is concerning search for some fluid overload. His BNP is mildly elevated though we have nothing to compare this to. Given his cardiac history and the fact he was in A. fib what he reports for several weeks I suspect that CHF is the primary cause of his symptoms today. Likely there is some COPD component however I do not think that starting him on steroids given his recent arrhythmias and other findings is quite necessary at this time. After discussing with hospitalist they will bring in for further management. We will start him on some Lasix here in the ER and patient is comfortable with this plan. He is already anticoagulated and thus I do not think that this is likely a PE and his symptoms are not consistent with dissection. At this time his troponin is unremarkable and thus given the symptoms greater than 6 hours this is unlikely ACS either. Prior Medical Record and Triage/Nursing Notes reviewed by Me Additional history obtained from chart Differentials:Reactive airway disease, pneumonia, pneumothorax, COPD, CHF, infections, cardiac ischemia, pulmonary embolism, musculoskeletal, fede rointestinal, as well as other pathologies. Vital Signs: reviewed and remarkable for no significant abnormalities Interventions: Lasix 20 mg IV, DuoNeb nebulizer Labs:Reviewed and remarkable for BNP 700 Imagin view chest x-ray left pleural effusion with some congestive findings throughout and fluid in the right middle fissure EKG:Per My Interpretation: Indication Shob: AV dual paced 87 bpm, qtc 589. No Ectopy. No Ischemia. Compared to EKG 04/06/21, no significant changes. Cardiac/Tele Monitoring: paced at 80 bpm Consults:Dr Gilberto TORRES Hospitalists Plan: Disposition:Hospitalization. Condition: Good History of Present Illness:85-year-old gentleman arrives for evaluation of shortness of breath. Patient notes for the last 2 months he has been having worsening shortness of breath issues. He was seen at [place] last week and admitted overnight with a cardioversion and change in his medications thus adding on amiodarone for his persistent A. fib. He notes since then he just has been having worsening shortness of breath and fatigue. He continues to take his Coumadin as an anticoagulant. He does note mild fluid buildup over the last few days though notes only slight swelling in his legs. He states his shortness of breath has gotten to the point where he can even get to the bathroom even using a walker. He has history of heart failure as well as COPD. He states he is wheezing a lot at home. He has no chest pain with this. He denies any syncope, chest pain, nausea, vomiting, lightheadedness, abdominal pain, back pain, joint aches, calf pain, rashes, bleeding, headaches, neck pain or other symptoms. He has had no recent fevers chills or other infectious symptoms. He is fully vaccinated for Covid. He has never had Covid. Patient denies any falls, trauma, injuries. He states any exertion makes worse. He states rest makes slightly better. Laying down makes slightly worse but not significantly. He has had no medications prior to arrival. ROS: See above HPI for pertinent positives & negatives. A total of 10 systems reviewed and were otherwise negative. Past Medical History:See Below Past Surgical History:See Below Family History:See Below Social History:See Below Home Medications:See Below Allergies:ramipril Vitals:Blood Pressure: 131/93, Pulse 83, RR 18, T 36.5C, O2 97% on RA Physical Exam: GENERAL: Patient is tired appearing and in moderate distress. EYES: No scleral icterus, unremarkable pupils. ENT: Mucous membranes moist, no nasal congestion. NECK: No masses appreciated, nomeningismus, trachea is midline. RESPIRATORY: Dyspneic, tachypneic, diffuse tight lung sounds with audible wheezing. CARDIOVASCULAR: Regular rate and rhythm.No murmurs, rubs, gallops appreciated. GASTROINTESTINAL: Abdomen soft, non-tender, no peritonitis.Bowel sounds positive.No masses appreciated. BACK: No midline tenderness, no CVA tenderness EXTREMITIES: Normal motion all extremities, no cyanosis, 1+ edema bilateral lower legs NEUROLOGIC: Alert and oriented, no acute motor or sensory deficits, no focal weakness, cranial nerves grossly intact. SKIN: No rash, no jaundice, no diaphoresis. 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 On tadalafil PRN for ED, not pHTN. Sleep apnea Non-compliant with cpap TIA (transient ischemic attack) x3 ~ and then recently ~07/16/2020 TIA, treated at [facility] Emergency room Surgical History History of back surgery X 5 LUMBAR History of cardiac cath TOTAL 2 STENTS-2013 AND 2016-F/U DR RAMIRES History of colonoscopy History of esophagogastroduodenoscopy (EGD) WITH DILITATION History of total bilateral knee replacement History of tympanoplasty (~1983) Hx of CABG (~1988) x4 vessels in [place]. Hx of inguinal hernia surgery Hx of total knee replacement Family History Other No family history of adverse response to anesthesia Social History Smoking Status: Current every day smoker Tobacco Type: Cigarettes Second Hand Exposure: No; Hx Alcohol Use: Yes Alcohol type: wine Hx Substance Use: No Preferred Language: Malaysian Communication Ability: Effective Human Services Supervisor Required: No Beliefs That Will Affect Care: None marital status: Current Living Situation: Spouse current occupational status: retired Feels Safe at Home: Yes Assistive Devices: Cane, Glasses and Walker Allergies Allergies Allergy/AdvReac Type Severity Reaction Status Date / Time ramipril AdvReac Intermediate COUGH Verified 05/14/21 19:03 Home Meds Home Medications Medication Instructions Recorded Confirmed atorvastatin 80 mg tablet 80 mg PO HS 11/26/19 05/14/21 coQ10 (ubiquinol) 200 mg capsule 400 mg PO QAM 11/26/19 05/14/21 levothyroxine 88 mcg capsule 88 mcg PO QAM 11/26/19 05/14/21 metoprolol succinate 50 mg 50 mg PO HS 11/26/19 05/14/21 tablet,extended release 24 hr pantoprazole 40 mg tablet,delayed 40 mg PO QAM 11/26/19 05/14/21 release ropinirole 1 mg tablet 1 - 2 mg PO BID 11/26/19 05/14/21 tadalafil 20 mg tablet 20 mg PO DIRECTED PRN 11/26/19 05/14/21 tiotropium bromide 18 mcg capsule 1 cap INHALATION QAM 11/26/19 05/14/21 with inhalation device (Spiriva with HandiHaler) ranolazine 1,000 mg 1,000 mg PO BID 07/15/20 05/14/21 tablet,extended release,12 hr (Ranexa) inulin-sorbitol 2 gram chewable 2 tab PO QAM 07/17/20 05/14/21 tablet (Fiber Supplement (inulin)) spironolactone 25 mg tablet 12.5 mg PO QAM tab 04/26/21 05/14/21 warfarin 3 mg tablet See Rx Instructions PO UD tab 04/26/21 05/14/21 Beet Root Powder 6 g PO BID 05/14/21 05/14/21 acyclovir 5 % topical cream 1 applic TOPICAL 5XD 05/14/21 05/14/21 (Zovirax) aluminum chloride 20 % topical 1 applic TOPICAL QAM 05/14/21 05/14/21 solution (Drysol Dab-O-Matic) amiodarone 200 mg tablet 200 mg PO QAM 05/14/21 05/14/21 furosemide 20 mg tablet 20 mg PO QAM 05/14/21 05/14/21 nitroglycerin 0.4 mg sublingual 0.4 mg SUBLINGUAL UD 05/14/21 05/14/21 tablet Previous Rx's Medication Instructions Recorded aspirin 81 mg tablet,delayed 81 mg PO QAM #30 tab 12/08/20 release Results & Data (ED) Vital Signs Vital Signs - 24 hr 05/14/21 17:59 05/14/21 19:26 Temperature 36.5 C Temperature Source Oral Pulse Rate 83 Pulse Rate [Left Apical] 75 Pulse Rhythm Regular Pulse Rhythm [Left Apical] Regular Pulse Strength Normal Pulse Strength [Left Apical] Normal Respiratory Rate 18 20 Respiratory Effort / Characteristics Non-Labored Non-Labored Respiratory Depth Normal Normal Respiratory Pattern Regular Blood Pressure 131/93 Blood Pressure [Left Arm] 126/108 H Blood Pressure Mean 105 Blood Pressure Mean [Left Arm] 114 Blood Pressure Position Lying Blood Pressure Position [Left Arm] Lying Pulse Oximetry 97 100 Oxygen Delivery Method Room Air Nasal Cannula Oxygen Flow Rate 0 Sepsis Recent Fever Within 48 Hours No Sepsis New/Unexplained Change in Mental Status No Sepsis Action Taken by Nursing No Action Required Laboratory Data Result diagrams: 05/14/21 17:30 05/14/21 17:30 Lab Results 05/14/21 05/14/21 05/14/21 Range/Units 17:30 17:30 17:30 WBC 5.36 (4.8-10.8) K/uL RBC 3.51 L (4.7-6.1) M/uL Hgb 12.3 L (14.0-18.0) g/dL Hct 36.4 L (42-52) % MCV 103.7 H (80-100) fL MCH 35.0 H (25-34) pg MCHC 33.8 (32-36) g/dL RDW Std Deviation 61.3 H (36.4-46.3) fL RDW Coeff of Shell 16.2 H (11.5-14.5) % Plt Count 126 L (130-400) K/uL MPV 9.8 (7.4-10.4) fL Immature Gran % (Auto) 0.2 % Neut % (Auto) 65.7 % Lymph % (Auto) 19.0 % Tillman % (Auto) 10.8 % Eos % (Auto) 3.9 % Baso % (Auto) 0.4 % Neut # (Auto) 3.52 (1.4-6.5) K/uL Lymph # (Auto) 1.02 L (1.2-3.4) K/uL Tillman # (Auto) 0.58 (0.11-0.59) K/uL Eos # (Auto) 0.21 (0-0.5) K/uL Baso # (Auto) 0.02 (0-0.2) K/uL Immature Gran # (Auto) 0.01 (0.00-0.02) K/uL Absolute Nucleated RBC 0.02 H (0-0) K/uL Nucleated RBC % (auto) 0.4 % PT 34.6 H (9.0-12.0) Seconds INR 3.8 H (0.9-1.1) Sodium 127 L (136-145) mmol/L Potassium 4.4 (3.5-5.1) mmol/L Chloride 94 L (98-107) mmol/L Carbon Dioxide 26 (21-32) mmol/L Anion Gap 7 (3-11) BUN 25 H (6-23) mg/dl Creatinine 1.22 (0.6-1.4) mg/dl Est Cr Clr Drug Dosing 44.3 ml/min Est GFR ( Amer) 62.3 ml/min Est GFR (Non-Af Amer) 53.7 ml/min BUN/Creatinine Ratio 20.5 H (10-20) Glucose 108 H (70-99(Fasting)) mg/dl Osmolality (280-300) mOsm/kg Calcium 8.8 (8.5-10.1) mg/dl Phosphorus 3.5 (2.5-4.9) mg/dl Magnesium 1.8 (1.7-2.4) mg/dl Total Bilirubin 1.4 H (0.2-1.0) mg/dl Direct Bilirubin 0.4 H (0-0.2) mg/dl AST 28 (13-39) U/L ALT 29 (7-52) U/L Alkaline Phosphatase 94 (34-104) U/L Troponin I 0.03 (0-0.04) ng/ml B-Natriuretic Peptide (0-100) pg/ml Total Protein 6.4 (6.0-8.3) gm/dl Albumin 4.1 (3.4-5.0) gm/dl SARS-CoV-2, RNA, NAAT (NEGATIVE) 05/14/21 05/14/21 05/14/21 Range/Units 17:30 18:14 18:20 WBC (4.8-10.8) K/uL RBC (4.7-6.1) M/uL Hgb (14.0-18.0) g/dL Hct (42-52) % MCV (80-100) fL MCH (25-34) pg MCHC (32-36) g/dL RDW Std Deviation (36.4-46.3) fL RDW Coeff of Shell (11.5-14.5) % Plt Count (130-400) K/uL MPV (7.4-10.4) fL Immature Gran % (Auto) % Neut % (Auto) % Lymph % (Auto) % Tillman % (Auto) % Eos % (Auto) % Baso % (Auto) % Neut # (Auto) (1.4-6.5) K/uL Lymph # (Auto) (1.2-3.4) K/uL Tillman # (Auto) (0.11-0.59) K/uL Eos # (Auto) (0-0.5) K/uL Baso # (Auto) (0-0.2) K/uL Immature Gran # (Auto) (0.00-0.02) K/uL Absolute Nucleated RBC (0-0) K/uL Nucleated RBC % (auto) % PT (9.0-12.0) Seconds INR (0.9-1.1) Sodium (136-145) mmol/L Potassium (3.5-5.1) mmol/L Chloride (98-107) mmol/L Carbon Dioxide (21-32) mmol/L Anion Gap (3-11) BUN (6-23) mg/dl Creatinine (0.6-1.4) mg/dl Est Cr Clr Drug Dosing ml/min Est GFR ( Amer) ml/min Est GFR (Non-Af Amer) ml/min BUN/Creatinine Ratio (10-20) Glucose (70-99(Fasting)) mg/dl Osmolality 277 L (280-300) mOsm/kg Calcium (8.5-10.1) mg/dl Phosphorus (2.5-4.9) mg/dl Magnesium (1.7-2.4) mg/dl Total Bilirubin (0.2-1.0) mg/dl Direct Bilirubin (0-0.2) mg/dl AST (13-39) U/L ALT (7-52) U/L Alkaline Phosphatase (34-104) U/L Troponin I (0-0.04) ng/ml B-Natriuretic Peptide 764 H (0-100) pg/ml Total Protein (6.0-8.3) gm/dl Albumin (3.4-5.0) gm/dl SARS-CoV-2, RNA, NAAT NEGATIVE (NEGATIVE) Administered Medications Atorvastatin Calcium (Atorvastatin 40 Mg Tab) 80 mg PO HS MIHAELA Stop: 06/13/21 22:44 Last Admin: 05/15/21 00:27 Dose: 80 mg Documented by: [id number] Furosemide (Furosemide Inj 20 Mg/2 Ml Vial) 20 mg IV TID MIHAELA Stop: 06/13/21 22:44 Last Admin: 05/15/21 00:27 Dose: 20 mg Documented by: [id number] Metoprolol Succinate (Metoprolol Succ 50mg Ext Rel Tab) 50 mg PO HS MIHAELA Stop: 06/13/21 22:44 Last Admin: 05/15/21 00:28 Dose: 50 mg Documented by: [id number] Ranolazine (Ranolazine 500 Mg Er Tab) 1,000 mg PO BID MIHAELA Stop: 06/13/21 22:44 Last Admin: 05/15/21 00:27 Dose: 1,000 mg Documented by: [id number] Ropinirole HCl (Ropinirole Hcl 2 Mg Tablet) 2 mg PO BID MIHAELA Stop: 06/13/21 22:44 Last Admin: 05/15/21 00:28 Dose: 2 mg Documented by: [id number] Discontinued Medications Albuterol (Albut/Ipratrop 3mg/0.5mg Neb 3 Ml Vial) 3 ml NEB NOW STA; Protocol Stop: 05/14/21 18:10 Last Admin: 05/14/21 18:17 Dose: 3 ml Documented by: [id number] Furosemide (Furosemide Inj 20 Mg/2 Ml Vial) 20 mg IV NOW STA Stop: 05/14/21 20:56 Last Admin: 05/14/21 21:26 Dose: 20 mg Documented by: [id number] Imaging Data Radiologist's Impression: Chest X-Ray 05/14/21 18:11 XR chest 1V portable CLINICAL HISTORY: shob TECHNIQUE: Single frontal radiograph of the chest was obtained. Comparison: Comparison is made to chest one view 04/05/2021 FINDINGS: Stable median sternotomy wires and dual-lead pacemaker. Cardiomegaly is noted. Scarring is seen in the right midlung. There are faint bilateral lower lung predominant airspace opacities. There is a small left pleural effusion. IMPRESSION: Small left pleural effusion. Bilateral lower lung predominant opacities likely represent atelectasis, pneumonia, and/or aspiration. ACT 112: Negative or not required by law. Electronically signed by: Nael Dawkins M.D. 05/14/2021 6:58 PM Discharge Plan Visit Data Chief Complaint: Cardiac Assessment ED Provider: David Oshea Discharge Problem: Acute congestive heart failure, COPD exacerbation Discharge Instructions Interventions: ED Discharge Assessment Last Done: 05/14/21 22:42 Discharge Problem: Acute congestive heart failure Qualifiers: Heart failure type: unspecified Qualified Code(s): I50.9 - Heart failure, unspecified
[2021-05-14 18:25] LABS: Basophils # (auto) 0.02 K/uL (0-0.2); Basophils % (auto) 0.4 %; Eosinophils # (auto) 0.21 K/uL (0-0.5); Eosinophils % (auto) 3.9 %; Hematocrit (blood only) 36.4 % (42-52); Hemoglobin 12.3 g/dL (14.0-18.0); Immature Granulocytes # (auto) 0.01 K/uL (0.00-0.02); Immature Granulocytes % (auto) 0.2 %; Lymphocytes # (auto) 1.02 K/uL (1.2-3.4); Mean Corpuscular Hgb Conc 33.8 g/dL (32-36); Mean Corpuscular Volume 103.7 fL (80-100); Mean Platelet Volume 9.8 fL (7.4-10.4); Monocytes # (auto) 0.58 K/uL (0.11-0.59); Monocytes % (auto) 10.8 %; Neutrophils # (auto) 3.52 K/uL (1.4-6.5); Neutrophils % (auto) 65.7 %; Nucleated RBC # (auto) 0.02 K/uL (0-0); Nucleated RBC % (auto) 0.4 %; Platelet Count 126 K/uL (130-400); RDW Coefficient of Variation 16.2 % (11.5-14.5); RDW Standard Deviation 61.3 fL (36.4-46.3); Red Blood Count 3.51 M/uL (4.7-6.1); White Blood Count 5.36 K/uL (4.8-10.8)
[2021-05-14 18:47] LABS: INR 3.8 (0.9-1.1); Prothrombin Time 34.6 Seconds (9.0-12.0)
[2021-05-14 18:57] LABS: Albumin Level 4.1 gm/dl (3.4-5.0); BUN Creatinine Ratio 20.5 (10-20); Bilirubin Direct 0.4 mg/dl (0-0.2); Bilirubin,Total 1.4 mg/dl (0.2-1.0); Calcium 8.8 mg/dl (8.5-10.1); Creatinine Clr Calc Pharmacy 44.3 ml/min; Est GFR (African American) 62.3 ml/min; Est GFR (Non-African American) 53.7 ml/min; Magnesium 1.8 mg/dl (1.7-2.4); Potassium 4.4 mmol/L (3.5-5.1); Total Protein 6.4 gm/dl (6.0-8.3)
[2021-05-14 18:58] LABS: Troponin I 0.03 ng/ml (0-0.04)
--- NOTE | 2021-05-14 19:00 | XRay Report ---
XR chest 1V portable CLINICAL HISTORY: shob TECHNIQUE: Single frontal radiograph of the chest was obtained. Comparison: Comparison is made to chest one view 04/05/2021 FINDINGS: Stable median sternotomy wires and dual-lead pacemaker. Cardiomegaly is noted. Scarring is seen in th e right midlung. There are faint bilateral lower lung predominant airspace opacities. There is a smal l left pleural effusion. IMPRESSION: Small left pleural effusion. Bilateral lower lung predominant opacities likely represent atelectasis, pneumonia, and/or aspiration. ACT 112: Negative or not required by law. Electronically signed by: Nael Dawkins M.D. 05/14/2021 6:58 PM
--- NOTE | 2021-05-14 20:31 | History & Physical Report ---
Date of Service May 14, 2021 Assessment & Plan (1) CHF (congestive heart failure): Plan: 85yo male with history of CAD, ICM with EF of 45% presenting with acute on chronic CHF, SOB and weakness. Patient reports cough, SOB, weakness and edema as well as weight gain. Exam is remarkable for bilateral rales, LE edema and JVD. Labs are significant for troponin of 0.03, BNP elevated at 764, mild elevation of Tbili and Dbili and hyponatremia with Nv=676 Per record review patient does seem to have some recovery in EF - was previously 35% -Admit to medical with telemetry -Diurese with Lasix 20mg IV TID -Montior I/Os, daily standing weights and symptoms -Labs daily to assess electrolytes and renal function with diuresis -Continue Metoprolol 50mg po qHS -Continue Spironolactone 12.5mg po daily -Patient was previously on Entresto which was held due to low blood pressure (2) PAF (paroxysmal atrial fibrillation): Plan: Patient reportedly in AF fairly consistently over the last several months. As per HPI, attempt to place ELOCUTION TEACHER-P aborted due to axillary vein occlusion. He [place]10[place] [facility] Amiodarone. INR is supratherapeutic at 3.8. No bleeding. -Continue Amiodarone -Continue metoprolol -Hold Coumadin and monitor daily INR -Diuresis as above (3) Acute hyponatremia: Plan: Patient with chronic hyponatremia with Na level 127 today. Suspect hypervolemic hyponatremia, ?lasix effects -Check urine Osm and Urea -Check serum osm -Monitor chemistry panel with lasix diuresis (4) CAD (coronary artery disease): Plan: Patient denies chest pain. Troponin - 0.03. EKG with no acute ischemic changes. -Continue ASA, Atorvastatin, metoprolol -Was previously on Entresto which has been held due to low blood pressures -Continue Ranolazine (5) Hypothyroidism: Plan: Chronic. TSH=2.07 on -Continue Synthroid 88mcg daily (6) GERD (gastroesophageal reflux disease): Plan: Chronic. Stable on medications -Continue Protonix 40mg po qAM (7) Hypertension: Plan: Chronic. Stable -Continue home medications as above -Monitor (8) Anemia: Plan: Patient with chronic stable anemia. Macrocytosis with JOI=277.7 which has been demonstrated on prior studies as well. B12 level normal at 367 (from 04/07/21). Folic acid low at 4.8. -Initiate folic acid repletion - 1mg po daily while inpatient. Consider reduced dosing on discharge with routine CBC followup -Encourage diet high in folic acid rich foods - cereals, green leafy vegetables (in consistent amounts in patient on Coumadin) Plan: F/E/N - Diuresis with Lasix as above, monitor electrolytes, heart healthy diet as tolerated Ppx - On coumadin with supratherapeutic INR of 3.8, hold and monitor Code - Full per discussion with patient Dispo - Admit to medical with telemetry History of Present Illness Chief Complaint: SOB Primary Care Provider: Isaias Em MD Suhas Dc is a pleasant 85yo C male with history of CAD s/p CABG x 4v, stent placement, ischemic cardiomyopathy and chronic systolic CHF with EF of 45% per recent echo. Patient with sinus node dysfunction s/p dual-chamber Med[employer]onic pacer and Atrial fibrillation. Recent device interrogation shows he is pacer dependent and paces 99% of the time in RV. He was recently [place] [facility] [place] to chronic resynchronization therapy pacer (ELOCUTION TEACHER-P) device. 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 He had a cardioversion performed on 05/10/21 and was diuresed appx 3L for CHF/volume overload. His discharge weight was 84.7kg. He was started on Lasix 20mg daily and restarted Amiodarone. Patient presents today complaining of progressive SOB, cough and wheeze which has been worsening over the last 2-3 months. He states he felt a little better after [place] [facility] He has a cough that is productive for clear/yellow/occasionally brown sputum. He reports some weight gain (seems like dry weight on his scale is appx 174# (79kg)). Today his weight was 179# at home. He endorses bilateral LE edema, conversational dyspnea. Today he had some dizziness and weakness with ambulation and was unable to get out of the chair without help. He also needed his walker to ambulate which is atypical. Patient with no additional complaints at this time. He denies chest pain, palpitations, abdominal pain, nausea, vomiting, diarrhea or constipation. Patient afebrile, HD stable. Placed on NC in ER, no documented hypoxia ER Course: Lasix 20mg IV, Albuterol 3mL neb Allergies Allergy/AdvReac Type Severity Reaction Status Date / Time ramipril AdvReac Intermediate COUGH Verified 05/14/21 19:03 Home Medications Medication Instructions Recorded Confirmed Type atorvastatin 80 mg tablet 80 mg PO HS 11/26/19 05/14/21 History coQ10 (ubiquinol) 200 mg capsule 400 mg PO QAM 11/26/19 05/14/21 History levothyroxine 88 mcg capsule 88 mcg PO QAM 11/26/19 05/14/21 History metoprolol succinate 50 mg 50 mg PO HS 11/26/19 05/14/21 History tablet,extended release 24 hr pantoprazole 40 mg tablet,delayed 40 mg PO QAM 11/26/19 05/14/21 History release ropinirole 1 mg tablet 1 - 2 mg PO BID 11/26/19 05/14/21 History tadalafil 20 mg tablet 20 mg PO DIRECTED PRN 11/26/19 05/14/21 History tiotropium bromide 18 mcg capsule 1 cap INHALATION QAM 11/26/19 05/14/21 History with inhalation device (Spiriva with HandiHaler) ranolazine 1,000 mg 1,000 mg PO BID 07/15/20 05/14/21 History tablet,extended release,12 hr (Ranexa) inulin-sorbitol 2 gram chewable 2 tab PO QAM 07/17/20 05/14/21 History tablet (Fiber Supplement (inulin)) aspirin 81 mg tablet,delayed 81 mg PO QAM #30 tab 12/08/20 05/14/21 Rx release spironolactone 25 mg tablet 12.5 mg PO QAM tab 04/26/21 05/14/21 History warfarin 3 mg tablet See Rx Instructions PO UD tab 04/26/21 05/14/21 History Beet Root Powder 6 g PO BID 05/14/21 05/14/21 History acyclovir 5 % topical cream 1 applic TOPICAL 5XD 05/14/21 05/14/21 History (Zovirax) aluminum chloride 20 % topical 1 applic TOPICAL QAM 05/14/21 05/14/21 History solution (Drysol Dab-O-Matic) amiodarone 200 mg tablet 200 mg PO QAM 05/14/21 05/14/21 History furosemide 20 mg tablet 20 mg PO QAM 05/14/21 05/14/21 History nitroglycerin 0.4 mg sublingual 0.4 mg SUBLINGUAL UD 05/14/21 05/14/21 History tablet Past Med/Surg History Medical History Atrial flutter found 01/05/21 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 On tadalafil PRN for ED, not pHTN. Sleep apnea Non-compliant with cpap TIA (transient ischemic attack) x3 ~ and then recently ~07/16/2020 TIA, treated at [facility] Emergency room Surgical History History of back surgery X 5 LUMBAR History of cardiac cath TOTAL 2 STENTS-2013 AND 2016-F/U DR RAMIRES History of colonoscopy History of esophagogastroduodenoscopy (EGD) WITH DILITATION History of total bilateral knee replacement History of tympanoplasty (~1983) Hx of CABG (~1988) x4 vessels in [place]. Hx of inguinal hernia surgery Hx of total knee replacement Family History Other No family history of adverse response to anesthesia Social History Smoking Status: Current every day smoker Tobacco Type: Cigarettes Second Hand Exposure: No; Hx Alcohol Use: Yes Alcohol type: wine Hx Substance Use: No Preferred Language: Indonesian Communication Ability: Effective Statue Maker Required: No Beliefs That Will Affect Care: None marital status: Current Living Situation: Spouse current occupational status: retired Feels Safe at Home: Yes Assistive Devices: Cane, Glasses and Walker Review of Systems Review of Systems: All systems reviewed & are unremarkable except as noted in HPI & below Physical Exam Physical Exam: General: patient resting comfortably, NAD, non-toxic in appearance, AA&O x 4 Skin: warm, dry, intact, no rashes or lesions HEENT: NC/AT, PERRL, EOMI, anicteric sclera, conjunctiva without injection, external ear normal to inspection and nontender, nares patent, moist mucus membranes, dentition intact, no oropharyngeal lesions, neck supple, trachea midline, no LAD, no thyromegaly, +JVD to angle of mandible noted on right with bed at appx 45 degrees, sternotomy scar Heart: +S1/S2, regular, no m/r/g Lungs: equal air entry bilaterally, crackles in bilateral bases, no wheezes Abd: +BS, soft, NT/ND, no masses/organomegaly/ascites Ext: warm, 2+ pulses in UE/LE bilaterally, no clubbing/cyanosis, 2+ edema Neuro: nonfocal, patient AA&O x 4, speech intact, no facial droop, moving all extremities on command with equal strength 5/5 Results & Data Results & Data ([facility]) Vital Signs (Past 12 Hours) Vital Signs Temp Pulse Pulse Resp BP BP Pulse Ox 05/14/21 19:26 75 20 126/108 H 100 05/14/21 17:59 36.5 C 83 18 131/93 97 Laboratory Results Laboratory Results WBC 5.36 K/uL (4.8-10.8) 05/14/21 17:30 RBC 3.51 M/uL (4.7-6.1) L 05/14/21 17:30 Hgb 12.3 g/dL (14.0-18.0) L 05/14/21 17:30 Hct 36.4 % (42-52) L 05/14/21 17:30 MCV 103.7 fL (80-100) H 05/14/21 17:30 MCH 35.0 pg (25-34) H 05/14/21 17:30 MCHC 33.8 g/dL (32-36) 05/14/21 17:30 RDW Std Deviation 61.3 fL (36.4-46.3) H 05/14/21 17:30 RDW Coeff of Shell 16.2 % (11.5-14.5) H 05/14/21 17: Plt Count 126 K/uL (130-400) L 05/14/21: MPV 9.8 fL (7.4-10.4) 05/14/21 17: Immature Gran % (Auto) 0.2 % 05/14/21 17: Neut % (Auto) 65.7 % 05/14/21: Lymph % (Auto) 19.0 % 05/14/21: [place] % (Auto) 10.8 % 05/14/21 17: Eos % (Auto) 3.9 % 05/14/21: Baso % (Auto) 0.4 % 05/14/21: Neut # (Auto) 3.52 K/uL (1.4-6.5) 05/14/21: Lymph # (Auto) 1.02 K/uL (1.2-3.4) L 05/14/21: [place] # (Auto) 0.58 K/uL (0.11-0.59) 05/14/21: Eos # (Auto) 0.21 K/uL (0-0.5) 05/14/21: Baso # (Auto) 0.02 K/uL (0-0.2) 05/14/21: Immature Gran # (Auto) 0.01 K/uL (0.00-0.02) 05/14/21: Absolute Nucleated RBC 0.02 K/uL (0-0) H 05/14/21: Nucleated RBC % (auto) 0.4 % 05/14/21: PT 34.6 Seconds (9.0-12.0) H 05/14/21: INR 3.8 (0.9-1.1) H 05/14/21: Sodium 127 mmol/L (136-145) L 05/14/21: Potassium 4.4 mmol/L (3.5-5.1) 05/14/21: Chloride 94 mmol/L (98-107) L 05/14/21: Carbon Dioxide 26 mmol/L (21-32) 05/14/21 17:30 Anion Gap 7 (3-11) 05/14/21 17:30 BUN 25 mg/dl (6-23) H 05/14/21 17:30 Creatinine 1.22 mg/dl (0.6-1.4) 05/14/21 17:30 Est Cr Clr Drug Dosing 44.3 ml/min 05/14/21 17:30 Est GFR ( Amer) 62.3 ml/min 05/14/21 17:30 Est GFR (Non-Af Amer) 53.7 ml/min 05/14/21 17:30 BUN/Creatinine Ratio 20.5 (10-20) H 05/14/21 17:30 Glucose 108 mg/dl (70-99(Fasting)) H 05/14/21 17:30 Calcium 8.8 mg/dl (8.5-10.1) 05/14/21 17:30 Phosphorus 3.5 mg/dl (2.5-4.9) 05/14/21 17:30 Magnesium 1.8 mg/dl (1.7-2.4) 05/14/21 17:30 Total Bilirubin 1.4 mg/dl (0.2-1.0) H 05/14/21 17:30 Direct Bilirubin 0.4 mg/dl (0-0.2) H 05/14/21 17:30 AST 28 U/L (13-39) 05/14/21 17:30 ALT 29 U/L (7-52) 05/14/21 17:30 Alkaline Phosphatase 94 U/L (34-104) 05/14/21 17:30 Troponin I 0.03 ng/ml (0-0.04) 05/14/21 17:30 B-Natriuretic Peptide 764 pg/ml (0-100) H 05/14/21 18:20 Total Protein 6.4 gm/dl (6.0-8.3) 05/14/21 17:30 Albumin 4.1 gm/dl (3.4-5.0) 05/14/21 17:30 SARS-CoV-2, RNA, NAAT NEGATIVE (NEGATIVE) 05/14/21 18:14 Impressions Chest X-Ray 05/14/21 18:11 XR chest 1V portable CLINICAL HISTORY: shob TECHNIQUE: Single frontal radiograph of the chest was obtained. Comparison: Comparison is made to chest one view 04/05/2021 FINDINGS: Stable median sternotomy wires and dual-lead pacemaker. Cardiomegaly is noted. Scarring is seen in the right midlung. There are faint bilateral lower lung predominant airspace opacities. There is a small left pleural effusion. IMPRESSION: Small left pleural effusion. Bilateral lower lung predominant opacities likely represent atelectasis, pneumonia, and/or aspiration. ACT 112: Negative or not required by law. Electronically signed by: Nael Dawkins M.D. 05/14/2021 6:58 PM PG Care Time/CCT Total # of Minutes Spent Total Time Spent with Patient: Total time spent is greater than 50% in coordination of care (as documented) at patient's floor/unit and/or counseling patient: Coding Level of Care Code 95641 Initial Inpt Care Lvl 3 Diagnoses PAF (paroxysmal atrial fibrillation) I48.0 Acute hyponatremia E87.1 CHF (congestive heart failure) I50.9 Heart failure chronicity: acute Heart failure type: unspecified Hypothyroidism E03.9 GERD (gastroesophageal reflux disease) K21.9 Hypertension I10 CAD (coronary artery disease) I25.10 Anemia D64.9 (1) CHF (congestive heart failure) Heart failure chronicity: acute Heart failure type: unspecified Qualified Code(s): I50.9 - Heart failure, unspecified
[2021-05-14] MEDS ORDERED: FUROSEMIDE INJ 20 MG/2 ML VIAL IV STA (20:55)
[2021-05-14] MEDS ORDERED: ACETAMINOPHEN 325 MG TAB PO PRN (22:45)
[2021-05-14 23:05] LABS: Phosphorus 3.5 mg/dl (2.5-4.9)
[2021-05-15] MEDS: RANOLAZINE 500 MG ER TAB PO SCH ×3 (00:27→21:31)
[2021-05-15] MEDS: FUROSEMIDE INJ 20 MG/2 ML VIAL IV SCH ×4 (00:27→21:31)
[2021-05-15] MEDS: ATORVASTATIN 40 MG TAB PO SCH ×2 (00:27→21:30)
[2021-05-15] MEDS: rOPINIRole HCL 2 MG TABLET PO SCH ×3 (00:28→21:30)
[2021-05-15] MEDS: METOPROLOL SUCC 50MG EXT REL TAB PO SCH ×2 (00:28→21:30)
[2021-05-15 06:00] LABS: Basophils # (auto) 0.01 K/uL (0-0.2); Basophils % (auto) 0.2 %; Eosinophils # (auto) 0.15 K/uL (0-0.5); Eosinophils % (auto) 3.1 %; Hematocrit (blood only) 34.1 % (42-52); Hemoglobin 11.6 g/dL (14.0-18.0); Immature Granulocytes # (auto) 0.02 K/uL (0.00-0.02); Immature Granulocytes % (auto) 0.4 %; Lymphocytes # (auto) 0.97 K/uL (1.2-3.4); Lymphocytes % (auto) 20.1 %; Mean Corpuscular Hemoglobin 35.2 pg (25-34); Mean Corpuscular Volume 103.3 fL (80-100); Monocytes # (auto) 0.54 K/uL (0.11-0.59); Monocytes % (auto) 11.2 %; Neutrophils # (auto) 3.13 K/uL (1.4-6.5); Platelet Count 114 K/uL (130-400); RDW Coefficient of Variation 16.2 % (11.5-14.5); RDW Standard Deviation 60.6 fL (36.4-46.3); White Blood Count 4.82 K/uL (4.8-10.8)
[2021-05-15 06:16] LABS: INR 4.5 (0.9-1.1); Prothrombin Time 40.9 Seconds (9.0-12.0)
[2021-05-15 06:22] LABS: Albumin Level 3.8 gm/dl (3.4-5.0); BUN Creatinine Ratio 20.5 (10-20); Bilirubin Direct 0.4 mg/dl (0-0.2); Bilirubin,Total 1.4 mg/dl (0.2-1.0); Calcium 8.7 mg/dl (8.5-10.1); Creatinine Clr Calc Pharmacy 42.5 ml/min; Est GFR (African American) 59.3 ml/min; Est GFR (Non-African American) 51.2 ml/min; Potassium 4.1 mmol/L (3.5-5.1)
[2021-05-15 06:30] LABS: Polychromasia 1+
[2021-05-15] MEDS: LEVOTHYROXINE SODIUM 88 MCG TABLET PO SCH (06:53)
[2021-05-15] MEDS: AMIODARONE 200 MG TAB PO SCH (09:43)
[2021-05-15] MEDS: ASPIRIN 81 MG ECTAB PO SCH (09:43)
[2021-05-15] MEDS: PANTOprazole 40 MG TAB PO SCH (09:44)
[2021-05-15] MEDS: SPIRONOLACTONE 12.5 MG TAB PO SCH (09:44)
[2021-05-15] MEDS: UMECLIDINIUM BROMIDE 62.5MCG/BLISTER 7 PUFFS/INHALER INH SCH (09:45)
[2021-05-15] MEDS: FOLIC ACID 1 MG TAB PO SCH (09:46)
--- NOTE | 2021-05-15 12:32 | Hospitalist Progress Note ---
Date of Service May 15, 2021 Assessment & Plan (1) CHF (congestive heart failure): Plan: 85yo male with history of CAD, ICM with EF of 45% presenting with acute on chronic CHF, SOB and weakness. Patient reports cough, SOB, weakness and edema as well as weight gain. Exam is remarkable for bilateral rales, LE edema and JVD. Labs are significant for troponin of 0.03, BNP elevated at 764, mild elevation of Tbili and Dbili and hyponatremia with Cp=998 Per record review patient does seem to have some recovery in EF - was previously 35%, most recent last week was 50% CHF exacerbation -Continue to diurese with Lasix 20mg IV TID -KCl supplementation while on Lasix -Monitor I/Os, daily weights -Trend BMP -Encourage ambulation -Continue Metoprolol 50mg po qHS -Continue Spironolactone 12.5mg po daily -Patient was previously on Entresto which was held due to low blood pressure (2) PAF (paroxysmal atrial fibrillation): Plan: Patient reportedly in AF fairly consistently over the last several months. As per HPI, attempt to place PRODUCT ADVISOR-P aborted due to axillary vein occlusion. He was cardioverted on 05/10/21 at [facility] [place] and started on Amiodarone. INR is supratherapeutic at 3.8. No bleeding. -Continue Amiodarone -Continue metoprolol -Hold Coumadin and monitor daily INR, INR of 4.5 on 05/15 -Diuresis as above -Will contact [facility] team and discuss potentially retrying PRODUCT ADVISOR-P soon after CHF exacerbation treated (3) Acute hyponatremia: Plan: Patient with chronic hyponatremia with Na level 127 today. Suspect hypervolemic hyponatremia- dilutional 2/2 CHF exacerbation -Urine and serum osmolality both low- consistent hypervolemic hyponatremia -Trend BMP (4) CAD (coronary artery disease): Plan: Patient denies chest pain. Troponin - 0.03. EKG with no acute ischemic changes. -Continue ASA, Atorvastatin, metoprolol -Was previously on Entresto which has been held due to low blood pressures -Continue Ranolazine (5) Hypothyroidism: Plan: Chronic. TSH=2.07 on -Continue Synthroid 88mcg daily (6) GERD (gastroesophageal reflux disease): Plan: Chronic. Stable on medications -Continue Protonix 40mg po qAM (7) Hypertension: Plan: Chronic. Stable -Continue home medications as above -Monitor (8) Anemia: Plan: Patient with chronic stable anemia. Macrocytosis with OUP=388.7 which has been demonstrated on prior studies as well. B12 level normal at 367 (from 04/07/21). Folic acid low at 4.8. -Continue folic acid repletion - 1mg po daily while inpatient. Consider reduced dosing on discharge with routine CBC followup -Encourage diet high in folic acid rich foods - cereals, green leafy vegetables (in consistent amounts in patient on Coumadin) Plan: F/E/N - Diuresis with Lasix as above, monitor electrolytes, heart healthy diet as tolerated Ppx - On coumadin with supratherapeutic INR of 4.5 hold and monitor Code - Full per discussion with patient Dispo - Admit to medical with telemetry Admission and Anticipated Discharge Date Admission Date: May 14, 2021 Supervising Physician Co-Signing Physician Notes I personally examined the patient and verified all diaz points of history and exam, discussed case, and agree with decision making with Dr Leon feeling better breathing better feels weak on his feet though vitals noted nad heent nc at mmm breathing unlabored no accessory muscles good effort lungs show faint base rales b/l acute on chronic systolic chf - diurese weakness/unsteadiness - PT/OT eval and treat otherwise as above Subjective No acute events overnight. Pt urinating appropriately, notes swelling has decreased in his legs. Feels much better than prior, but has minor shortness of breath with exertion or prolonged conversation. Review of Systems Review of Systems: All systems reviewed & are unremarkable except as noted in Subjective Physical Exam Physical Exam: General: patient resting comfortably, NAD, non-toxic in appearance Skin: warm, dry, intact, no rashes or lesions HEENT: NC/AT, PERRL, EOMI, anicteric sclera, conjunctiva without injection, external ear normal to inspection and nontender, nares patent, moist mucus membranes, dentition intact, no oropharyngeal lesions, neck supple, trachea midline, no LAD, no thyromegaly, no JVD, sternotomy scar Heart: +S1/S2, regular, no m/r/g Lungs: equal air entry bilaterally, minor crackles in bilateral bases, no wheezes Abd: Soft, NT/ND, no masses/organomegaly/ascites Ext: warm, 2+ pulses in UE/LE bilaterally, no clubbing/cyanosis, 1+ peripheral edema b/l Neuro: no gross focal motor or sensory deficits Results & Data Results & Data ([facility]) Vital Signs (Past 12 Hours) Vital Signs Temp Pulse Resp BP Pulse Ox 05/15/21 09:38 72 20 121/86 97 05/15/21 04:21 36.6 C 71 18 131/76 96 Resident Activity Tracking Resident Involvement: Resident Care Provided Care Provided: Adult Hospital Medicine (1) CHF (congestive heart failure) Heart failure chronicity: acute Heart failure type: unspecified Qualified Code(s): I50.9 - Heart failure, unspecified
[2021-05-15] MEDS: POTASSIUM CHLORIDE 20 MEQ/15 ML UDC PO SCH (14:18)
[2021-05-15 15:03] LABS: BUN Creatinine Ratio 17.9 (10-20); Calcium 8.7 mg/dl (8.5-10.1); Creatinine Clr Calc Pharmacy 37.2 ml/min; Est GFR (African American) 50.5 ml/min; Est GFR (Non-African American) 43.6 ml/min; Potassium 4.1 mmol/L (3.5-5.1)
[2021-05-15] MEDS ORDERED: SODIUM CHLORIDE 1 GM TABLET PO STA (16:27)
--- NOTE | 2021-05-15 17:15 | Billing Data ---
Date of Service May 15, 2021 Coding Level of Care Code 37082 Subseq Hosp Care Lvl 3
--- NOTE | 2021-05-15 22:25 | Electrocardiogram Report ---
Test Reason : Blood Pressure : / mmHG Vent. Rate : 087 BPM Atrial Rate : 063 BPM P-R Int : 206 ms QRS Dur : 230 ms QT Int : 490 ms P-R-T Axes : 000 -65 112 degrees QTc Int : 589 ms AV dual-paced rhythm Abnormal ECG When compared with ECG of 06-APR-2021 11:05, Vent. rate has increased BY 37 BPM Confirmed by Po Nguyen ([id number]) on 05/15/2021 10:25:30 PM Referred By: REFERRED SELF Confirmed By:Po Nguyen
[2021-05-16] MEDS: LEVOTHYROXINE SODIUM 88 MCG TABLET PO SCH (06:32)
[2021-05-16] MEDS ORDERED: MELATONIN 3 MG TAB PO PRN (07:41)
[2021-05-16 07:54] LABS: Hematocrit (blood only) 33.6 % (42-52); Hemoglobin 11.4 g/dL (14.0-18.0); Mean Corpuscular Hemoglobin 35.2 pg (25-34); Mean Corpuscular Hgb Conc 33.9 g/dL (32-36); Mean Corpuscular Volume 103.7 fL (80-100); Mean Platelet Volume 9.6 fL (7.4-10.4); Platelet Count 111 K/uL (130-400); RDW Coefficient of Variation 15.9 % (11.5-14.5); RDW Standard Deviation 61.1 fL (36.4-46.3); Red Blood Count 3.24 M/uL (4.7-6.1); White Blood Count 4.82 K/uL (4.8-10.8)
[2021-05-16 08:10] LABS: BUN Creatinine Ratio 17.8 (10-20); Calcium 8.1 mg/dl (8.5-10.1); Creatinine Clr Calc Pharmacy 41.9 ml/min; Est GFR (African American) 58.2 ml/min; Est GFR (Non-African American) 50.2 ml/min; INR 4.2 (0.9-1.1); Potassium 3.9 mmol/L (3.5-5.1); Prothrombin Time 38.3 Seconds (9.0-12.0)
[2021-05-16] MEDS ORDERED: FOLIC ACID 1 MG TAB PO SCH (09:00)
[2021-05-16 09:06] LABS: Urea Nitrogen, Random Urine 312 mg/dL
[2021-05-16] MEDS: POTASSIUM CHLORIDE 20 MEQ/15 ML UDC PO SCH (09:07)
[2021-05-16] MEDS: FUROSEMIDE INJ 20 MG/2 ML VIAL IV SCH ×3 (09:09→20:46)
[2021-05-16] MEDS: ASPIRIN 81 MG ECTAB PO SCH (09:09)
[2021-05-16] MEDS: AMIODARONE 200 MG TAB PO SCH (09:09)
[2021-05-16] MEDS: FOLIC ACID 1 MG TAB PO SCH (09:10)
[2021-05-16] MEDS: PANTOprazole 40 MG TAB PO SCH (09:10)
[2021-05-16] MEDS: rOPINIRole HCL 2 MG TABLET PO SCH ×2 (09:10→20:46)
[2021-05-16] MEDS: SPIRONOLACTONE 12.5 MG TAB PO SCH (09:10)
[2021-05-16] MEDS: RANOLAZINE 500 MG ER TAB PO SCH ×2 (09:11→20:46)
[2021-05-16] MEDS: UMECLIDINIUM BROMIDE 62.5MCG/BLISTER 7 PUFFS/INHALER INH SCH (09:46)
--- NOTE | 2021-05-16 12:47 | Medical Student Progress Note ---
Date of Service May 16, 2021 Assessment & Plan (1) CHF (congestive heart failure): Plan: 85yo male with history of CAD, ICM with EF of 45% presenting with acute on chronic CHF, SOB and weakness. Per record review patient does seem to have some recovery in EF - was previously 35%, most recent last week was 50%. His CHF exacerbation is improving and he no longer becomes SOB during conversation. CHF exacerbation -Continue to diurese with Lasix 20mg IV TID -KCl supplementation while on Lasix -Monitor I/Os, daily weights -Trend BMP -Encourage ambulation -Continue Metoprolol 50mg po qHS -Continue Spironolactone 12.5mg po daily -PT/OT ongoing, pt would like dc in AM with home PT/OT, would like one more day in hospital to recover strength Heart failure chronicity: acute Heart failure type: unspecified Qualified Code(s): I50.9 - Heart failure, unspecified (2) PAF (paroxysmal atrial fibrillation): Plan: Patient reportedly in AF fairly consistently over the last several months. As per HPI, attempt to place COLOR LABORATORY TECHNICIAN-P aborted due to axillary vein occlusion. [place] [facility] [place] Am[place]ar[place]. INR is supratherapeutic at 3.8. No bleeding. -Continue Amiodarone -Continue metoprolol -Hold Coumadin and monitor daily INR, INR of 4.2 on 05/16 -Diuresis as above -Will [place] [facility] [place] and discuss potentially retrying COLOR LABORATORY TECHNICIAN-P soon after CHF exacerbation treated (3) Acute hyponatremia: Plan: Patient with chronic hyponatremia with Na level 126 today. Suspect hypervolemic hyponatremia- dilutional 2/2 CHF exacerbation -Urine and serum osmolality both low- consistent hypervolemic hyponatremia -Continue diuresis, low suspicion for solute deficiency so will avoid Na supplementation (4) CAD (coronary artery disease): Plan: Patient denies chest pain. Troponin - 0.03. EKG with no acute ischemic changes. -Continue ASA, Atorvastatin, metoprolol -Was previously on Entresto which has been held due to low blood pressures -Continue Ranolazine (5) Hypothyroidism: Plan: Chronic. TSH=2.07 on -Continue Synthroid 88mcg daily (6) GERD (gastroesophageal reflux disease): Plan: Chronic. Stable on medications -Continue Protonix 40mg po qAM (7) Hypertension: Plan: Chronic. Stable -Continue home medications as above -Monitor (8) Anemia: Plan: Patient with chronic stable anemia. Macrocytosis with JTW=087.7 which has been demonstrated on prior studies as well. B12 level normal at 367 (from 04/07/21). Folic acid low at 4.8. -Continue folic acid repletion - 1mg po daily while inpatient. Consider reduced dosing on discharge with routine CBC followup -Encourage diet high in folic acid rich foods - cereals, green leafy vegetables (in consistent amounts in patient on Coumadin) Plan: F/E/N - Diuresis with Lasix as above, monitor electrolytes, heart healthy diet as tolerated Ppx - On coumadin with supratherapeutic INR of 4.2 hold and monitor Code - Full per discussion with patient Dispo - Admit to medical with telemetry Admission and Anticipated Discharge Date Admission Date: May 14, 2021 Supervising Attestation I personally examined the patient and verified all diaz points of history and exam, discussed case, and agree with decision making with A [place] MS2 feeling better breathing better feels weak on his feet but better than yesterday doesn't think he'll need to go to rehab thinks maybe another day he'll be good to go home vitals noted nad heent nc at mmm breathing unlabored no accessory muscles good effort lungs clear - no rales, maybe faintly diminished bibasilar but better than yesterday acute on chronic systolic chf - med management, safe for outpt f/u. weakness/unsteadiness - PT/OT eval and treat ongoing - should be able to go home otherwise as above Subjective No acute events overnight. Pt urinating appropriately, notes swelling has decr eased in his legs. Pt is no longer short of breath during conversation. OT saw him and he still has decreased activity tolerance but no mention of SOB. Review of Systems Constitutional: no fever, no chills, no sweats and no increased appetite (decreased appetite) Respiratory: + cough; no change in sputum, no dyspnea on exertion and no wheezing Cardiovascular: no radiating jaw, neck or arm pain, no dyspnea at rest, no syncope, no edema (decreased edema) and no claudication Gastrointestinal: + early satiety; no bloating, no nausea and no vomiting Genitourinary: no dysuria or no difficulty urinating Physical Exam Physical Exam: General: patient resting comfortably, NAD, non-toxic in appearance Skin: warm, dry, intact, no rashes or lesions HEENT: NC/AT, PERRL, EOMI, anicteric sclera, conjunctiva without injection, external ear normal to inspection and nontender, nares patent, moist mucus membranes, dentition intact, no oropharyngeal lesions, neck supple, trachea midline, no LAD, no thyromegaly, no JVD, sternotomy scar Heart: +S1/S2, regular, no m/r/g Lungs: equal air entry bilaterally, decreased crackles in bilateral bases from yesterday, no wheezes Ext: warm, 2+ pulses in LE bilaterally, no pitting edema, no clubbing/cyanosis Results & Data ([facility]) Vital Signs (Past 12 Hours) Vital Signs Temp Pulse Pulse Resp BP Pulse Ox 05/16/21 11:17 37.0 C 74 20 95/62 L 96 05/16/21 07:27 36.6 C 74 18 118/78 96 05/16/21 07:21 77 05/16/21 04:29 36.4 C L 70 18 111/63 94 Resident Activity Tracking Resident Involvement: Resident Care Provided Care Provided: Adult Hospital Medicine
--- NOTE | 2021-05-16 17:44 | Billing Data ---
Date of Service May 16, 2021 Coding Level of Care Code 09737 Subseq Hosp Care Lvl 3
[2021-05-16] MEDS: ATORVASTATIN 40 MG TAB PO SCH (20:45)
[2021-05-16] MEDS: METOPROLOL SUCC 50MG EXT REL TAB PO SCH (20:46)
[2021-05-17] MEDS: LEVOTHYROXINE SODIUM 88 MCG TABLET PO SCH (05:52)
[2021-05-17 06:35] LABS: Hemoglobin 11.7 g/dL (14.0-18.0); Mean Corpuscular Hemoglobin 35.1 pg (25-34); Mean Corpuscular Hgb Conc 34.4 g/dL (32-36); Mean Corpuscular Volume 102.1 fL (80-100); Mean Platelet Volume 9.3 fL (7.4-10.4); Platelet Count 110 K/uL (130-400); RDW Coefficient of Variation 15.7 % (11.5-14.5); RDW Standard Deviation 58.5 fL (36.4-46.3); Red Blood Count 3.33 M/uL (4.7-6.1); White Blood Count 5.09 K/uL (4.8-10.8)
[2021-05-17 06:48] LABS: Prothrombin Time 36.5 Seconds (9.0-12.0)
[2021-05-17 06:59] LABS: BUN Creatinine Ratio 19.3 (10-20); Calcium 8.3 mg/dl (8.5-10.1); Creatinine Clr Calc Pharmacy 45.4 ml/min; Est GFR (African American) 64.2 ml/min; Est GFR (Non-African American) 55.4 ml/min; Potassium 3.9 mmol/L (3.5-5.1)
[2021-05-17] MEDS: UMECLIDINIUM BROMIDE 62.5MCG/BLISTER 7 PUFFS/INHALER INH SCH (07:43)
[2021-05-17] MEDS: POTASSIUM CHLORIDE 20 MEQ/15 ML UDC PO SCH (07:44)
[2021-05-17] MEDS: FUROSEMIDE INJ 20 MG/2 ML VIAL IV SCH ×3 (07:44→21:49)
[2021-05-17] MEDS: PANTOprazole 40 MG TAB PO SCH (07:45)
[2021-05-17] MEDS: FOLIC ACID 1 MG TAB PO SCH (07:45)
[2021-05-17] MEDS: rOPINIRole HCL 2 MG TABLET PO SCH ×2 (07:46→21:42)
[2021-05-17] MEDS: SPIRONOLACTONE 12.5 MG TAB PO SCH (07:46)
[2021-05-17] MEDS: RANOLAZINE 500 MG ER TAB PO SCH ×2 (07:46→21:42)
[2021-05-17] MEDS: AMIODARONE 200 MG TAB PO SCH (07:46)
[2021-05-17] MEDS: ASPIRIN 81 MG ECTAB PO SCH (07:46)
--- NOTE | 2021-05-17 09:56 | Hospitalist Progress Note ---
Date of Service May 17, 2021 Assessment & Plan (1) CHF (congestive heart failure): Plan: 85yo male with history of CAD, ICM with EF of 45% presenting with acute on chronic CHF, SOB and weakness. Per record review patient does seem to have some recovery in EF - was previously 35%, most recent last week was 50%. His CHF exacerbation is improving, less conversational SOB during conversation. CHF exacerbation -Continue to diurese with Lasix 20mg IV TID. Anticipate discharge on reduced dose. -KCl supplementation while on Lasix, K 3.9 today -Monitor I/Os, daily weights, BMP -Continue Metoprolol 50mg po qHS -Continue Spironolactone 12.5mg po daily (2) PAF (paroxysmal atrial fibrillation): Plan: Patient reportedly in AF fairly consistently over the last several months. As per HPI, attempt to place INSTALLATION SPECIALIST-P aborted due to axillary vein occlusion. He was cardioverted on 05/10/21 at [facility] [place] and started on Amiodarone. INR supratherapeutic. No bleeding. -Continue Amiodarone -Continue metoprolol -Hold Coumadin and monitor daily INR, INR of 4 on 05/17 -Will contact [facility] [place] team and discuss potentially retrying INSTALLATION SPECIALIST-P soon after CHF exacerbation treated (3) Acute hyponatremia: Plan: Patient with chronic hyponatremia with Na level 122 today. 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 Troponin - 0.03. EKG with no acute ischemic changes. -Continue ASA, Atorvastatin, metoprolol -Was previously on Entresto which has been held due to low blood pressures -Continue Ranolazine (5) Hypothyroidism: Plan: Chronic. TSH=2.07 on -Continue Synthroid 88mcg daily (6) GERD (gastroesophageal reflux disease): Plan: Chronic. Stable on medications -Continue Protonix 40mg po qAM (7) Hypertension: Plan: Chronic. Stable -Continue home medications as above -Monitor (8) Anemia: Plan: Patient with chronic stable anemia. Macrocytosis with XLJ=489.7 which has been demonstrated on prior studies as well. B12 level normal at 367 (from 04/07/21). Folic acid low at 4.8. -Continue folic acid repletion - 1mg po daily while inpatient. Consider reduced dosing on discharge with routine CBC followup -Encourage diet high in folic acid rich foods - cereals, green leafy vegetables (in consistent amounts in patient on Coumadin) Plan: F/E/N - Diuresis with Lasix as above, monitor electrolytes, heart healthy/low sodium diet as tolerated Ppx - On coumadin with supratherapeutic INR of 4.0, hold and monitor Code - Full per discussion with patient Dispo - Downgrade to Med/Surg Admission and Anticipated Discharge Date Admission Date: May 14, 2021 Supervising Physician Co-Signing Physician Notes I personally examined the patient and verified all diaz points of history and exam, discussed case, and agree with decision making with Dr Leon generally feeling better sodium went down more vitals noted nad heent nc at mmm breathing unlabored no accessory muscles good effort lungs show faint base rales b/l acute on chronic systolic chf - continue to diurese, doing better worsening hyponatremia - initially suspected to be mostly, if not all, dilutional from CHF. 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 Pt urinating appropriately, denies swelling in legs. Less conversational dyspnea. Would like to go home but ok with staying to determine why his sodium is low. No acute complaints. Review of Systems Review of Systems: All systems reviewed & are unremarkable except as noted in Subjective Physical Exam Physical Exam: General: patient resting comfortably, NAD, non-toxic in appearance Skin: warm, dry, intact, no rashes or lesions HEENT: NC/AT, PERRL, EOMI, anicteric sclera, conjunctiva without injection, external ear normal to inspection and nontender, nares patent, moist mucus membranes, dentition intact, no oropharyngeal lesions, neck supple, trachea midline, no LAD, no thyromegaly, no JVD, sternotomy scar Heart: +S1/S2, regular, no m/r/g Lungs: equal air entry bilaterally, very faint crackles in bilateral bases, no wheezes Abd: Soft, NT/ND, no masses/organomegaly/ascites Ext: warm, 2+ pulses in UE/LE bilaterally, no clubbing/cyanosis, no peripheral edema b/l Neuro: no gross focal motor or sensory deficits Results & Data Results & Data ([facility]) Vital Signs (Past 12 Hours) Vital Signs Temp Pulse Pulse Resp BP Pulse Ox 05/17/21 07:00 36.6 C 75 70 20 126/81 96 05/17/21 03:09 37.2 C 71 20 120/70 95 05/16/21 23:00 80 05/16/21 22:49 36.4 C L 72 20 116/70 96 Resident Activity Tracking Resident Involvement: Resident Care Provided Care Provided: Adult Hospital Medicine (1) CHF (congestive heart failure) Heart failure chronicity: acute Heart failure type: unspecified Qualified Code(s): I50.9 - Heart failure, unspecified
--- NOTE | 2021-05-17 18:39 | Billing Data ---
Date of Service May 17, 2021 Coding Level of Care Code 13366 Subseq Hosp Care Lvl 3
[2021-05-17] MEDS: METOPROLOL SUCC 50MG EXT REL TAB PO SCH (21:42)
[2021-05-17] MEDS: ATORVASTATIN 40 MG TAB PO SCH (21:42)
[2021-05-18] MEDS: LEVOTHYROXINE SODIUM 88 MCG TABLET PO SCH (06:06)
[2021-05-18 07:19] LABS: INR 2.8 (0.9-1.1); Prothrombin Time 26.2 Seconds (9.0-12.0)
[2021-05-18 07:23] LABS: Calcium 8.3 mg/dl (8.5-10.1); Creatinine Clr Calc Pharmacy 41.2 ml/min; Est GFR (African American) 57.1 ml/min; Est GFR (Non-African American) 49.3 ml/min; Potassium 3.9 mmol/L (3.5-5.1)
[2021-05-18] MEDS: FOLIC ACID 1 MG TAB PO SCH (07:42)
[2021-05-18] MEDS: ASPIRIN 81 MG ECTAB PO SCH (07:42)
[2021-05-18] MEDS: FUROSEMIDE INJ 20 MG/2 ML VIAL IV SCH (07:42)
[2021-05-18] MEDS: AMIODARONE 200 MG TAB PO SCH (07:42)
[2021-05-18] MEDS: rOPINIRole HCL 2 MG TABLET PO SCH (07:43)
[2021-05-18] MEDS: PANTOprazole 40 MG TAB PO SCH (07:43)
[2021-05-18] MEDS: RANOLAZINE 500 MG ER TAB PO SCH (07:43)
[2021-05-18] MEDS: POTASSIUM CHLORIDE 20 MEQ/15 ML UDC PO SCH (07:43)
[2021-05-18] MEDS: UMECLIDINIUM BROMIDE 62.5MCG/BLISTER 7 PUFFS/INHALER INH SCH (07:44)
[2021-05-18] MEDS: SPIRONOLACTONE 12.5 MG TAB PO SCH (07:44)
--- NOTE | 2021-05-18 12:56 | Discharge Summary ---
Date of Service May 18, 2021 Admission HPI Per Admitting Provider Suhas Dc is a pleasant 85yo C male with history of CAD s/p CABG x 4v, stent placement, ischemic cardiomyopathy and chronic systolic CHF with EF of 45% per recent echo. Patient with sinus node dysfunction s/p dual-chamber [employer] pacer and Atrial fibrillation. Recent device interrogation shows he is pacer dependent and paces 99% of the time in RV. [place] [facility] [place] chronic resynchronization therapy pacer ([employer]GER-P) device. 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 He had a cardioversion performed on 05/10/21 and was diuresed appx 3L for CHF/volume overload. His discharge weight was 84.7kg. He was started on Lasix 20mg daily and restarted Amiodarone. Patient presents today complaining of progressive SOB, cough and wheeze which has been worsening over the last 2-3 months. He states he felt a little better after [place] [facility] [place] He has a cough that is productive for clear/yellow/occasionally brown sputum. He reports some weight gain (seems like dry weight on his scale is appx 174# (79kg)). Today his weight was 179# at home. He endorses bilateral LE edema, conversational dyspnea. Today he had some dizziness and weakness with ambulation and was unable to get out of the chair without help. He also needed his walker to ambulate which is atypical. Patient with no additional complaints at this time. He denies chest pain, palpitations, abdominal pain, nausea, vomiting, diarrhea or constipation. Shahla ent afebrile, HD stable. Placed on NC in ER, no documented hypoxia ER Course: Lasix 20mg IV, Albuterol 3mL neb Admission Exam Per Admitting Provider General: patient resting comfortably, NAD, non-toxic in appearance, AA&O x 4 Skin: warm, dry, intact, no rashes or lesions HEENT: NC/AT, PERRL, EOMI, anicteric sclera, conjunctiva without injection, external ear normal to inspection and nontender, nares patent, moist mucus membranes, dentition intact, no oropharyngeal lesions, neck supple, trachea midline, no LAD, no thyromegaly, +JVD to angle of mandible noted on right with bed at appx 45 degrees, sternotomy scar Heart: +S1/S2, regular, no m/r/g Lungs: equal air entry bilaterally, crackles in bilateral bases, no wheezes Abd: +BS, soft, NT/ND, no masses/organomegaly/ascites Ext: warm, 2+ pulses in UE/LE bilaterally, no clubbing/cyanosis, 2+ edema Neuro: nonfocal, patient AA&O x 4, speech intact, no facial droop, moving all extremities on command with equal strength 5/5 Principal Diagnosis Acute exacerbation of congestive heart failure Discharge Exam General: patient resting comfortably, NAD, non-toxic in appearance Skin: warm, dry, intact, no rashes or lesions HEENT: NC/AT, PERRL, EOMI, anicteric sclera, conjunctiva without injection, external ear normal to inspection and nontender, nares patent, moist mucus membranes, dentition intact, no oropharyngeal lesions, neck supple, trachea midline, no LAD, no thyromegaly, no JVD, sternotomy scar Heart: +S1/S2, regular, no m/r/g Lungs: equal air entry bilaterally, no crackles in bilateral bases today, no wheezes Abd: Soft, NT/ND, no masses/organomegaly/ascites Ext: warm, 2+ pulses in UE/LE bilaterally, no clubbing/cyanosis, no peripheral edema b/l Neuro: no gross focal motor or sensory deficits Discharge Data Allergies Allergy/AdvReac Type Severity Reaction Status Date / Time ramipril AdvReac Intermediate COUGH Verified 05/14/21 19:03 Consultations 05/14/21 20:11 ED Decision to Admit Stat Hospital Course (1) CHF (congestive heart failure): 85yo male with history of CAD, ICM with EF of 45% presenting with acute on chronic CHF, SOB and weakness. Per record review patient does seem to have some recovery in EF - was previously 35%, most recent last week was 50%. His CHF exacerbation is improving, less conversational SOB during conversation. CHF exacerbation -Continue to diurese with Lasix 20mg TID. Pt discharged on Lasix 20 mg PO TID, reduce Lasix dosing regimen pending PCP f/u on 05/19 -KCl supplementation while on Lasix, K 3.9 on day of discharge. Discharged home with KCl supplementation. -Continue Metoprolol 50mg po qHS -Continue Spironolactone 12.5mg po daily -Requested outpatient f/u with sports marketing coordinator Dr. Muñoz (2) PAF (paroxysmal atrial fibrillation): Patient reportedly in AF fairly consistently over the last several months. As per HPI, attempt to place [employer]GER-P aborted due to axillary vein occlusion. He was [place] 05[place]10[place] [facility] [place] started on Amiodarone. INR supratherapeutic. No bleeding. -Continue Amiodarone -Continue metoprolol -Hold Coumadin and monitor daily INR, INR of 2.8 on 05/18- resume home Coumadin on discharge and recheck INR at outpatient f/u -[place] [facility] [place] and discuss potentially retrying [employer]GER-P soon after CHF ex acerbation treated (3) Acute hyponatremia: Patient with chronic hyponatremia with Na level 122 today. 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 Troponin - 0.03. EKG with no acute ischemic changes. -Continue ASA, Atorvastatin, metoprolol -Was previously on Entresto which has been held due to low blood pressures -Continue Ranolazine (5) Hypothyroidism: Chronic. TSH=2.07 on -Continue Synthroid 88mcg daily (6) GERD (gastroesophageal reflux disease): Chronic. Stable on medications -Continue Protonix 40mg po qAM (7) Hypertension: Chronic. Stable -Continue home medications as above -Monitor (8) Anemia: Patient with chronic stable anemia. Macrocytosis with KPB=007.7 which has been demonstrated on prior studies as well. B12 level normal at 367 (from 04/07/21). Folic acid low at 4.8. -Continue folic acid repletion - 1mg po daily while inpatient. Consider reduced dosing on discharge with routine CBC followup -Encourage diet high in folic acid rich foods - cereals, green leafy vegetables (in consistent amounts in patient on Coumadin) F/E/N - Diuresis with Lasix as above, monitor electrolytes, heart healthy/low sodium diet as tolerated Ppx - Held home Warfarin due to supratherapeutic INR during stay Code - Full per discussion with patient Dispo - Home health Total Time Total Time Spent Total Time Spent (In Minutes): <30 Discharge Plan Discharge Items Patient Disposition: Home - Home Health Services Reason For Visit: SOB, ?CHF Discharge Diagnosis: Heart failure exacerbation Activity: Per Instructions section Non-emergency contact: Primary Care Provider and Brand Representative Call non-emergency contact if: you have any medication questions and your symptoms worsen Follow-up/Referrals: Isaias Em MD [Primary Care Provider] - 05/23/21 1:30 pm Maged Muñoz DO [Physician] - 05/23/21 10:10 am Diet: Low Sodium (2gm) Fluids: 1500ml (6 cups) Ambulatory Orders: Basic Metabolic Panel (Routine) Timeframe: 1 Day Location: Determined by Patient Ordered By: Dexter Leon Prothrombin Time INR (Routine) Timeframe: 1 Day Location: Determined by Patient Ordered By: Dexter Leon Addtl Attending Provider Instructions: You were admitted for CHF (congestive heart failure) exacerbation. You were treated with diuretics to help remove extra fluid from your body. Follow-up appointments: We have requested follow-ups with Dr. Em and Dr. Muñoz. They will call you to inform you of when the appointments will be. Medications: Your medication list has been reviewed and reconciled upon discharge to ensure accuracy and continuity of care. An updated list of all your medications is included with your hospital discharge paperwork. Please review this list closely, and make note of any changes. Please continue your Lasix three times a day. Please take your daily potassium supplement as well while you take Lasix. You should also resume taking your Warfarin daily. Take your medications as instructed; do not skip a dose of your medicines. Make sure all of your doctors know every medicine you are taking (including [id number] medicines, vitamins, and supplements). Call your primary care provider before taking any new medicines (including kmxm-mxf-scvegre medicines, vitamins, and supplements), because some of these may interact with your current medications, or may make your symptoms worse. Tell your primary care provider if you cannot afford your medications. Activity: You can do normal everyday activities as your body allows. Take rest breaks if you feel tired. Do not over-exert yourself. Stop activity if you have pain, shortness of breath or feel dizzy. Weight: It is important for you to monitor your daily weights. Weigh yourself every morning using the same scale. Wear the same amount of clothing each time, without anything in your pockets. Keep a log of your daily weights, and bring this log with you every time you see your primary care physician, or any other doctor. Call your primary care physician if you gain more than 2-3 pounds in 1-2 days. Diet: Follow a low sodium (salt) diet. We recommend limiting your sodium intake to under 2000mg per day. Choose foods and drinks with low or no salt. Remove the salt shaker from your table at home. We also recommend limiting your daily fluid intake to 1800mL (60oz) in order to help your body balance fluids. Do not drink excessive beer, alcohol, or wine. If you are struggling with these restrictions, or need additional help incorporating healthy habits into your daily life, please contact your primary care provider. CONTACT YOUR PRIMARY CARE PROVIDER if you experience any of the following: Shortness of breath or have more difficulty breathing Swelling of your feet, ankles, hands or abdomen Feeling tired with normal activity or experiencing dizziness or fainting Difficulty following your treatment plan, or difficulty taking medications CALL 911 OR GO TO THE EMERGENCY DEPARTMENT if you experience any of the following: Severe abdominal pain Severe nausea/vomiting Severe chest pain, or chest pain that radiates (moves) to your jaw or arm Sudden, severe shortness of breath or difficulty breathing Thank you for allowing us to participate in your care. Pending Studies at Discharge: No Stand-Alone Forms: [employer], Smoking Cessation Medications and DC Order Prescriptions: New potassium chloride 40 mEq/15 mL liquid 40 meq PO DAILY 30 Days Qty: 450 RF: 1 Continued warfarin 3 mg tablet See Rx Instructions PO UD RF: 0 spironolactone 25 mg tablet 12.5 mg PO QAM RF: 0 atorvastatin 80 mg Tablet 80 mg PO HS RF: 0 coQ10 (ubiquinol) 200 mg Capsule 400 mg PO QAM RF: 0 Spiriva with HandiHaler 18 mcg Capsule, W/Inhalation Device 1 cap INHALATION QAM RF: 0 metoprolol succinate 50 mg Tablet Extended Release 24 Hr 50 mg PO HS RF: 0 levothyroxine 88 mcg Capsule 88 mcg PO QAM RF: 0 ropinirole 1 mg Tablet 1 - 2 mg PO BID RF: 0 pantoprazole 40 mg Tablet,Delayed Release (Dr/Ec) 40 mg PO QAM RF: 0 tadalafil 20 mg Tablet 20 mg PO DIRECTED PRN (Reason: Erectile Dysfunction) RF: 0 aspirin 81 mg Tablet,Delayed Release (Dr/Ec) 81 mg PO QAM Qty: 30 RF: 0 amiodarone 200 mg tablet 200 mg PO QAM RF: 0 Drysol Dab-O-Matic 20 % solution 1 applic TOPICAL QAM RF: 0 nitroglycerin 0.4 mg tablet, sublingual 0.4 mg sublingual UD RF: 0 furosemide 20 mg tablet 20 mg PO QAM RF: 0 acyclovir [Zovirax] 5 % Cream 1 applic TOPICAL 5XD RF: 0 Beet Root Powder 6 g PO BID RF: 0 ranolazine [Ranexa] 1,000 mg tablet extended release 12 hr 1,000 mg PO BID RF: 0 Fiber Supplement (inulin) 2 gram Tablet,Chewable 2 tab PO QAM RF: 0 Discharge Orders: Discharge Order (Routine); Ordered 05/18/21 Ordered By: Dexter Leon Admission Data Admit Date/Time: 05/14/21 20:30 Attending Provider: Solo Sanchez Admit Provider: Akua Macias Primary Care Provider: Isaias Em Other Providers: Real Kennedy ; Akua Macias Other Interventions: Discharge Summary Assessment (RN) Last Done: 05/18/21 12:35 Supervising Physician Co-Signing Physician Notes I personally examined the patient and verified all diaz points of history and exam, discussed case, and agree with decision making with Dr Leon generally feeling better sodium went up a little asks good questions i answer all to the best of my ability vitals noted nad heent nc at mmm breathing unlabored no accessory muscles good effort neuro no focal deficits acute on chronic systolic chf - stable for home, short course of increased dosing diuretic. outpt BMP. sodium restriction. worsening hyponatremia - initially suspected to be mostly, if not all, dilutional from CHF. 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 explained how serum Na is much more a reflection of H2O than Na content given how counterintuitive it is to tell him to Na restrict when his Na is low (he asked really good questions about this and then actually noted that prior to this admission he was purposefully increasing his Na intake to try to boost his serum Na - likely precipitating current CHF exac) weakness/unsteadiness - PT/OT eval and treat at home (appears safe enough for home, does not want to go to rehab) otherwise as above Resident Activity Tracking Resident Involvement: Resident Care Provided Care Provided: Adult Hospital Medicine
--- NOTE | 2021-05-18 19:34 | Billing Data ---
Date of Service May 18, 2021 Coding Level of Care Code D/C DAY MANAGEMENT <30 MINS
== END 2021-05-18 14:49 | disposition home health service (06) | DRG 291 ==
LOC: ED 17:41 → EDINP 20:30 → SUATTDRO 20:30 → 2W 22:42
DX: Z95.0 Presence of cardiac pacemaker; Z86.73 Personal history of transient ischemic attack (TIA), and cerebral infarction without residual deficits; I50.23 Acute on chronic systolic (congestive) heart failure; E03.9 Hypothyroidism, unspecified; K21.9 Gastro-esophageal reflux disease without esophagitis; Z95.1 Presence of aortocoronary bypass graft; D75.89 Other specified diseases of blood and blood-forming organs; E78.5 Hyperlipidemia, unspecified; E87.1 Hypo-osmolality and hyponatremia; D64.9 Anemia, unspecified; I25.5 Ischemic cardiomyopathy; Z79.82 Long term (current) use of aspirin; Z79.899 Other long term (current) drug therapy; Z79.890 Hormone replacement therapy; J44.9 Chronic obstructive pulmonary disease, unspecified; E22.2 Syndrome of inappropriate secretion of antidiuretic hormone; Z95.5 Presence of coronary angioplasty implant and graft; R53.1 Weakness; Z79.01 Long term (current) use of anticoagulants; I49.5 Sick sinus syndrome; I48.19 Other persistent atrial fibrillation; I11.0 Hypertensive heart disease with heart failure; I25.2 Old myocardial infarction; F17.210 Nicotine dependence, cigarettes, uncomplicated; I25.10 Atherosclerotic heart disease of native coronary artery without angina pectoris; Z88.8 Allergy status to other drugs, medicaments and biological substances

== ENCOUNTER 2024-10-16 17:18 | Observation (INO) ==
[2024-10-16 17:54] LABS: Hematocrit (blood only) 39.0 % (42.0-52.0); Hemoglobin 13.2 g/dl (14.0-18.0); Immature Granulocytes # (auto) 0.03 K/uL (0.01-0.20); Immature Granulocytes % (auto) 0.6 %; Mean Corpuscular Hemoglobin 34.6 pg (25.0-34.0); Mean Corpuscular Volume 102.1 fL (80.0-100.0); Platelet Count 130 K/uL (130-400); RDW Standard Deviation 57.3 fL (36.4-46.3); Red Blood Count 3.82 M/uL (4.70-6.10); White Blood Count 5.18 K/ul (4.8-10.8)
[2024-10-16 18:12] LABS: Alanine Aminotransferase 13.0 U/L (7-52); Albumin Globulin Ratio 1.6 (0.9-2); Alkaline Phosphatase 67.0 U/L (34-104); Anion Gap 5.0 (3-11); Bilirubin,Total 0.8 mg/dl (0.2-1.0); Blood Urea Nitrogen 33.0 mg/dl (6-23); Calcium 8.8 mg/dl (8.6-10.3); Carbon Dioxide 25.0 mmol/L (21-32); Chloride 103.0 mmol/L (98-107); Creatinine Clr Calc Pharmacy 32.3 ml/min; Globulin 2.7 gm/dl (2.5-4.0); Glucose 91.0 mg/dl (70-99(Fasting)); Potassium 4.8 mmol/L (3.5-5.1); Sodium 133.0 mmol/L (136-145); Total Protein 7.0 gm/dl (6.0-8.3)
--- NOTE | 2024-10-16 18:14 | Emergency Department Note ---
Impression & Plan Shortness of breath, Acute hyponatremia, Paced cardiac rhythm ED Provider Note NAME: YULIET KONG AGE: 88 SEX: M : 1935 ARRIVES VIA: Walk-In INFORMANT: Patient ED PROVIDER(S): Solo Markham DO CHIEF COMPLAINT: Dizzy, trouble walking HPI: Patient is an 88-year-old male who presents ER for feeling dizzy and lightheaded. He notes his symptoms have been getting progressively worse over the past 6 months. Recently they have been much more debilitating as now he feels like he cannot drive and cannot walk as he had trouble getting into the car. His aircraft stress analyst saw him within the past week and noted that he was in A- fib 100% of the time. He called his PCP and aircraft stress analyst again today and they referred him in. He notes the dizziness is only present with movement of the head. Denies any weakness or numbness in the arms or legs. No change or loss of vision. No chest pain but admits to shortness of breath when not moving around which is not new. Denies any dysuria, urgency, or frequency. No focal weakness. ADDITIONAL HISTORY OBTAINED: Per HPI Chronic Medical/Social Conditions Affecting Care: Per HPI PAST MEDICAL HISTORY:See Below PAST SURGICAL HISTORY:See Below FAMILY HISTORY:See Below SOCIAL HISTORY:See Below HOME MEDICATIONS:See Below ALLERGIES:See Below VITALS:See Below PHYSICAL EXAMINATION: GENERAL: Sitting up in bed, alert, well appearing, well nourished, no distress, non-toxic EYE EXAM: normal conjunctiva. PERRL and EOM's intact. OROPHARYNX: no exudate, no erythema, lips, buccal mucosa, and tongue normal and mucous membranes are moist NECK: supple, no nuchal rigidity, no adenopathy, non-tender LUNGS: Clear to auscultation. Normal chest wall mechanics HEART: no murmurs, S1 normal and S2 normal ABDOMEN: abdomen soft, non-tender, normo-active bowel sounds, no masses, no rebound or guarding. BACK: Back is symmetrical on inspection and there is no deformity, no midline tenderness, no CVA tenderness. SKIN: no rashes and no bruising UPPER EXTREMITIES: upper extremities are grossly normal. LOWER EXTREMITIES: No pitting edema. NEURO EXAM: Normal sensorium, cranial nerves II-XII intact, normal speech, no weakness of arms, no weakness of legs. No drift. Finger to nose intact. Gross sensation intact. MEDICAL DECISION MAKING: Patient is an 88-year-old male who presents ER for above-stated complaint. IV was established and blood work was obtained. Labs showed no significant leukocytosis. Pain anemia 13. INR unremarkable. BMP with a mild hyponatremia at 133. Creatinine elevated 1. 5 8. LFTs and bilirubin troponin was negative. EKG shows a paced rhythm. Chest x-ray was clean. CT angios of the head and neck were negative. He was updated bedside discussed case with the hospitalist for further evaluation management treatment due to ambulatory dysfunction likely secondary to dizziness. Consults/Care Managements Discussions: Per [facility] Triage Nursing notes reviewed. Limited review of prior medical records performed Vital Signs: reviewed and remarkable for htn Differential diagnosis: Differential diagnosis includes etiologies such as benign positional vertigo, dehydration, hypovolemia, anemia, tumor, infection, hypoglycemia, electrolyte abnormalities, cardiac sources, intracerebral event, toxicologic, neurological, as well as others were entertained. ER treatment provided: See below Diagnostics interpreted by me include EKG and cardiac monitoring as listed below: -Cardiac Monitoring: An order was placed for continuous cardiac monitoring. The monitor shows a rate of 70 with Paced rhythm. -ECG: Paced rhythm rate of 90 Left axis No PVCs QTc 456 -Laboratory studies:Interpreted by me as stated above in MDM and shown below. Imaging studies: Xrays: As interpreted by me: Portable AP upright 1 view the chest shows no focal infiltrate CTs show: CT angios of the head and neck were negative per radiology for acute pathology Procedures:none Critical Care: None Past Med/Surg History Problem List (Updated 10/16/24 @ 22:30 by Solo Markham DO) Paced cardiac rhythm (Acute) Acute hyponatremia (Acute) Shortness of breath (Acute) (HFpEF) heart failure with preserved ejection fraction Dizziness Vertebral artery stenosis CTS (carpal tunnel syndrome) Carotid stenosis Hypertension Ocular migraine Carotid bruit Vitamin D deficiency Proteinuria Stage 3b chronic kidney disease Chronic cough Chronic obstructive pulmonary disease Pleural effusion COPD exacerbation (Acute) PAF (paroxysmal atrial fibrillation) Current use of long term care administrator anticoagulation (Acute) Medical History Acute congestive heart failure Anemia Falls frequently Lab test negative for COVID-19 virus Acute renal insufficiency Acute hyponatremia Weakness Atrial flutter Sleep apnea Hyperlipidemia Atrial thrombus Hypothyroidism CONNOLLY (dyspnea on exertion) COVID-19 virus antibody negative Pacemaker CHF (congestive heart failure) Anticoagulated Dysarthria Ataxia Pulmonary hypertension Encounter for pre-operative examination CAD (coronary artery disease) GERD (gastroesophageal reflux disease) Myocardial Infarction History of pacemaker Right shoulder pain TIA (transient ischemic attack) Wound infection after surgery (01/15/14) Palpitations Lumbar stenosis with neurogenic claudication (01/05/14) Chest pain Surgical History Hx of CABG (~1988) History of total bilateral knee replacement History of back surgery History of esophagogastroduodenoscopy (EGD) History of colonoscopy History of cardiac cath History of tympanoplasty (~1983) Hx of inguinal hernia surgery Hx of total knee replacement Family History Other No family history of adverse response to anesthesia Social History Smoking Status: Former smoker Tobacco Type: Cigarettes Age Started Using Tobacco: 21; Age Quit Using Tobacco: 33; Second Hand Exposure: No; Do You Dip or Chew Tobacco: No; Hx Alcohol Use: Yes Alcohol type: beer, wine and hard liquor Alcohol Intake Frequency: 4 or More x per/Week Hx Substance Use: No Preferred Language: Singaporean Communication Ability: Effective Visual Impairment: No Limitations Hearing Ability: Use of Hearing Aid Parquet Floor Layer Required: No Beliefs That Will Affect Care: None marital status: Current Living Situation: Alone current occupational status: retired Feels Safe at Home: Yes Diet: regular Dental Care, Regularly: Yes Physical Activity Frequency: Does not Exercise Seatbelt Use: always Do you think of yourself as: straight/heterosexual Gender Identity: Male Assistive Devices: Glasses and Hearing Aid - Bilateral Allergies Allergies Allergy/AdvReac Type Severity Reaction Status Date / Time amlodipine Allergy Severe EDEMA Verified 10/16/24 19:15 AIRWAY ramipril AdvReac Intermediate Cough Verified 10/16/24 19:15 ropinirole AdvReac Intermediate HALLUCINATI Verified 10/16/24 19:15 ONS Home Meds Home Medications Medication Instructions Recorded Confirmed metoprolol succinate 50 mg 50 mg PO HS 11/26/19 10/16/24 tablet,extended release 24 hr pantoprazole 40 mg tablet,delayed 40 mg PO QAM 11/26/19 10/16/24 release amiodarone 200 mg tablet 200 mg PO QAM 05/14/21 10/16/24 nitroglycerin 0.4 mg sublingual 0.4 mg sublingual DIRECTED PRN 05/14/21 10/16/24 tablet Chest Pain levothyroxine 88 mcg tablet 88 mcg PO DAILY 06/06/21 10/16/24 (Synthroid) acetaminophen 500 mg capsule 1,000 mg PO Q8H PRN Pain 06/20/21 10/16/24 albuterol sulfate 90 mcg/actuation 1 - 2 inh inhalation QID PRN 06/20/21 10/16/24 aerosol inhaler Shortness Of Breath Or Wheezing atorvastatin 80 mg tablet 40 mg PO Q2D 06/20/21 10/16/24 tadalafil 10 mg tablet 20 mg PO DIRECTED PRN Erectile 09/27/21 10/16/24 Dysfunction aluminum chloride 20 % topical 1 applic topical HS PRN DIRECTED 08/29/22 10/16/24 solution (Drysol) bumetanide 0.5 mg tablet 0.5 mg PO QAM 08/29/22 10/16/24 ranolazine 1,000 mg 500 mg PO BID 08/29/22 10/16/24 tablet,extended release,12 hr cholecalciferol (vitamin D3) 25 25 mcg PO DAILY 10/16/24 10/16/24 mcg (1,000 unit) capsule (Vitamin D3) psyllium husk 3.4 gram/5.4 gram 2 tsp PO DAILY 10/16/24 10/16/24 oral powder (Metamucil) Previous Rx's Medication Instructions Recorded aspirin 81 mg tablet,delayed 81 mg PO QAM #30 tabs 12/08/20 release empagliflozin 10 mg tablet 10 mg PO DAILY #90 tabs 03/13/24 (Jardiance) Results & Data (ED) Vital Signs Vital Signs - 24 hr 10/16/24 17:22 10/16/24 18:04 10/16/24 18:04 Temperature 36.8 C Temperature Source Temporal Artery Scan Pulse Rate - Lying Pulse Rate - Sitting Pulse Rate - Standing Pulse Rate 96 H Pulse Rate [Apical] 80 Pulse Rate from SpO2 Sensor Respiratory Rate 18 16 Respiratory Effort / Characteristics Non-Labored Spontaneous Non-Labored Spontaneous Respiratory Depth Normal Respiratory Pattern Regular Blood Pressure - Lying Blood Pressure - Sitting Blood Pressure- Standing Blood Pressure 125/79 Blood Pressure [Right Arm] 144/93 H Blood Pressure Mean 94 Blood Pressure Mean [Right Arm] 110 Pulse Oximetry 96 99 99 Oxygen Delivery Method Room Air Room Air Room Air Sepsis Recent Fever Within 48 Hours No Sepsis New/Unexplained Change in Mental Status N/A Sepsis Action Taken by Nursing No Action Required 10/16/24 18:04 10/16/24 18:06 10/16/24 19:00 Temperature Temperature Source Pulse Rate - Lying Pulse Rate - Sitting Pulse Rate - Standing Pulse Rate 76 97 H 70 Pulse Rate [Apical] Pulse Rate from SpO2 Sensor 70 Respiratory Rate 16 22 Respiratory Effort / Characteristics Respiratory Depth Respiratory Pattern Blood Pressure - Lying Blood Pressure - Sitting Blood Pressure- Standing Blood Pressure 123/83 Blood Pressure [Right Arm] Blood Pressure Mean 93 Blood Pressure Mean [Right Arm] Pulse Oximetry 98 99 Oxygen Delivery Method Room Air Sepsis Recent Fever Within 48 Hours Sepsis New/Unexplained Change in Mental Status Sepsis Action Taken by Nursing 10/16/24 19:30 10/16/24 20:00 10/16/24 20:30 Temperature Temperature Source Pulse Rate - Lying Pulse Rate - Sitting Pulse Rate - Standing Pulse Rate 70 70 70 Pulse Rate [Apical] Pulse Rate from SpO2 Sensor 70 70 72 Respiratory Rate 20 22 19 Respiratory Effort / Characteristics Respiratory Depth Respiratory Pattern Blood Pressure - Lying Blood Pressure - Sitting Blood Pressure- Standing Blood Pressure 133/83 159/104 H 139/85 Blood Pressure [Right Arm] Blood Pressure Mean 109 123 103 Blood Pressure Mean [Right Arm] Pulse Oximetry 97 98 99 Oxygen Delivery Method Sepsis Recent Fever Within 48 Hours Sepsis New/Unexplained Change in Mental Status Sepsis Action Taken by Nursing 10/16/24 21:03 10/16/24 21:04 10/16/24 21:59 Temperature Temperature Source Pulse Rate - Lying 73 Pulse Rate - Sitting 99 H Pulse Rate - Standing 93 H Pulse Rate 70 74 Pulse Rate [Apical] Pulse Rate from SpO2 Sensor 70 Respiratory Rate 22 Respiratory Effort / Characteristics Respiratory Depth Respiratory Pattern Blood Pressure - Lying 138/86 Blood Pressure - Sitting 136/88 Blood Pressure- Standing 135/80 Blood Pressure 138/86 Blood Pressure [Right Arm] Blood Pressure Mean 103 Blood Pressure Mean [Right Arm] Pulse Oximetry 97 Oxygen Delivery Method Sepsis Recent Fever Within 48 Hours Sepsis New/Unexplained Change in Mental Status Sepsis Action Taken by Nursing Laboratory Data 10/16/24 17:40 10/16/24 17:40 Lab Results 10/16/24 Range/Units 17:40 WBC 5.18 (4.8-10.8) K/ul RBC 3.82 L (4.70-6.10) M/uL Hgb 13.2 L (14.0-18.0) g/dl Hct 39.0 L (42.0-52.0) % MCV 102.1 H (80.0-100.0) fL MCH 34.6 H (25.0-34.0) pg MCHC 33.8 (32.0-36.0) g/dL RDW Std Deviation 57.3 H (36.4-46.3) fL RDW Coeff of Shell 15.5 H (11.5-14.5) % Plt Count 130 (130-400) K/uL MPV 9.8 (9.4-12.4) fL Immature Gran % (Auto) 0.6 % Neut % (Auto) 56.5 % Lymph % (Auto) 25.7 % [place] % (Auto) 12.7 % Eos % (Auto) 3.9 % Baso % (Auto) 0.6 % Neut # (Auto) 2.93 (1.40-6.50) K/uL Lymph # (Auto) 1.33 (1.20-3.40) K/uL [place] # (Auto) 0.66 H (0.11-0.59) K/uL Eos # (Auto) 0.20 (0.00-0.50) K/uL Baso # (Auto) 0.03 (0.00-0.20) K/uL Immature Gran # (Auto) 0.03 (0.01-0.20) K/uL PT 11.3 (9.0-12.0) Seconds INR 1.0 (0.9-1.1) APTT 28 (21-31) Seconds PTT Ratio 1.0 Sodium 133 L (136-145) mmol/L Potassium 4.8 (3.5-5.1) mmol/L Chloride 103 (98-107) mmol/L Carbon Dioxide 25 (21-32) mmol/L Anion Gap 5 (3-11) BUN 33 H (6-23) mg/dl Creatinine 1.58 H (0.6-1.4) mg/dl Est Cr Clr Drug Dosing 32.3 ml/min eGFR 41.81 BUN/Creatinine Ratio 20.9 H (10-20) Glucose 91 (70-99(Fasting)) mg/dl Calcium 8.8 (8.6-10.3) mg/dl Magnesium 2.2 (1.7-2.4) mg/dl Total Bilirubin 0.8 (0.2-1.0) mg/dl AST 20 (13-39) U/L ALT 13 (7-52) U/L Alkaline Phosphatase 67 (34-104) U/L Troponin I High Sens 9.6 (0-20) pg/ml Total Protein 7.0 (6.0-8.3) gm/dl Albumin 4.3 (3.4-5.0) gm/dl Globulin 2.7 (2.5-4.0) gm/dl Albumin/Globulin Ratio 1.6 (0.9-2) Administered Medications Metoprolol Succinate (Metoprolol Succ 25mg Ext Rel Tab) 6.25 mg PO HS MIHAELA Stop: 11/15/24 21:24 Last Admin: 10/16/24 21:55 Dose: 6.25 mg Documented By: DENA Discontinued Medications Sodium Chloride (Nss) 500 mls @ 999 mls/hr IV .Q31M ONE Stop: 10/16/24 18:40 Last Infusion: 10/16/24 20:11 Dose: Infused Documented By: Admin: 10/16/24 18:39 Dose: 999 mls/hr Documented By: EDWIN Ioversol (Optiray 320 125ml) 119 ml IV ONCE ONE Stop: 10/16/24 18:29 Last Admin: 10/16/24 18:28 Dose: 119 ml Documented By: ALEXANDER Meclizine HCl (Meclizine Hcl 25 Mg Tab) 25 mg PO NOW STA Stop: 10/16/24 19:36 Last Admin: 10/16/24 20:22 Dose: 25 mg Documented By: DENA Metoprolol Succinate (Metoprolol Succ 25mg Ext Rel Tab) 25 mg PO HS MIHAELA Stop: 10/16/24 21:20 Last Admin: 10/16/24 21:49 Dose: Not Given Documented By: DENA Imaging Data Radiologist's Impression: Chest X-Ray 10/16/24 17:28 EXAM: Portable AP chest radiograph TECHNIQUE: AP portable radiograph of the chest was obtained. INDICATION: Chest pain Comparison: Chest radiograph June 23, 2022 FINDINGS: LINES and TUBES: Left-sided cardiac pacemaker again seen. CARDIOVASCULAR: Cardiac silhouette is stably and mildly enlarged with redemonstrated post CABG changes. Atherosclerotic thoracic aorta. Tortuous coursing of the thoracic aorta may be seen with chronic systemic hypertension. LUNGS/PLEURA: No focal consolidation identified. Left basilar subsegmental atelectasis. Calcified granuloma in the left lung base. No significant pleural fluid. No discernible pneumothorax. OSSEOUS/OTHER: No displaced acute osseous process identified. IMPRESSION: No radiographic evidence of acute cardiopulmonary process with unchanged findings as above. Electronically signed by Taurus Benitez 10-16-2024 6:55 PM Head CTA 10/16/24 18:10 Clinical history: Dizziness and fatigue Technique: Axial computed tomography images were obtained of the brain before and after the administration of intravenous contrast according to the CT angiogram protocol Findings: There is cerebral atrophy, within expected limits for the patient's age. Areas of decreased attenuation are seen within the periventricular white matter, likely representing chronic small vessel ischemic disease. There is no definite sign of acute or old infarction. No intracranial hemorrhage is evident. No definite mass lesion is seen. There is no midline shift or other form of herniation. No hydrocephalus is seen. No fracture is identified. The orbits and the visualized paranasal sinuses appear unremarkable. The mastoid air cells appear clear. No definite stenosis or aneurysm is seen of the anterior, middle, or posterior cerebral artery circulations. There is mild plaque in the basilar artery, without stenosis Impression: No definite stenosis or aneurysm of the intracranial arteries Electronically signed by Live Serna 10-16-2024 7:17 PM Neck CTA 10/16/24 18:10 Clinical history: Dizziness and fatigue Technique: Axial computed tomography images were obtained of the neck after the administration of intravenous contrast according to the CT angiogram protocol Comparison is made to the prior CTA dated 05/15/2024 Findings: There is mild plaque in the distal common carotid arteries bilaterally, without significant stenosis. There is an approximately 50% diameter stenosis of the proximal right internal carotid artery. There is an approximately 60% diameter stenosis of the left carotid bulb and proximal left internal carotid artery. 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 There is calcified plaque in the cavernous segments of the distal internal carotid arteries bilaterally, without significant stenosis. There is mild plaque in the proximal external carotid arteries bilaterally, without significant stenosis There is a moderate severity stenosis of the distal right vertebral artery. There is an approximately 50% diameter stenosis of the distal left vertebral artery also. The visualized thoracic aorta appears unremarkable. Postsurgical changes are seen of coronary artery bypass grafting surgery There is multilevel degenerative disc disease and osteoarthritis of the cervical spine. There is anterolisthesis at C3-4 and C4-5 Impression: 1. 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 Unchanged approximately 60% stenosis of the left carotid bulb and proximal left ICA 3. Approximately 50% stenosis of the proximal right ICA 4. Moderate severity stenoses of the distal vertebral arteries bilaterally ACT 112: Positive. There are findings on this exam that require communication between the performing entity and the patient following Patient Test Result Information Act ([place] ACT 112) guidelines. Electronically signed by Live Serna 10-16-2024 7:24 PM Discharge Plan Visit Data Chief Complaint: Cardiac Assessment Stated Complaint: A FIB ED Provider: Solo Markham Discharge Problem: Shortness of breath, Acute hyponatremia, Paced cardiac rhythm Condition: Fair Forms Stand Alone Forms: My [facility] [employer] Prescriptions Prescriptions: No Action levothyroxine [Synthroid] 88 mcg tablet 88 mcg PO DAILY albuterol sulfate 90 mcg/actuation HFA aerosol inhaler 1 - 2 inh inhalation QID PRN (Reason: Shortness Of Breath Or Wheezing) acetaminophen 500 mg capsule 1,000 mg PO Q8H PRN (Reason: Pain) Jardiance 10 mg tablet 10 mg PO DAILY Qty: 90 3RF bumetanide 0.5 mg tablet 0.5 mg PO QAM Rx Instructions: 1 mg by mouth daily metoprolol succinate 50 mg Tablet Extended Release 24 Hr 50 mg PO HS pantoprazole 40 mg Tablet,Delayed Release (Dr/Ec) 40 mg PO QAM atorvastatin 80 mg tablet 40 mg PO Q2D aspirin 81 mg Tablet,Delayed Release (Dr/Ec) 81 mg PO QAM Qty: 30 0RF amiodarone 200 mg tablet 200 mg PO QAM nitroglycerin 0.4 mg tablet, sublingual 0.4 mg sublingual DIRECTED PRN (Reason: Chest Pain) ranolazine 1,000 mg tablet extended release 12 hr 500 mg PO BID tadalafil 10 mg tablet 20 mg PO DIRECTED PRN (Reason: Erectile Dysfunction) Drysol 20 % solution 1 applic TOPICAL HS PRN (Reason: DIRECTED) cholecalciferol (vitamin D3) [Vitamin D3] 25 mcg (1,000 unit) Capsule 25 mcg PO DAILY Metamucil 3.4 gram/5.4 gram Powder 2 tsp PO DAILY Rx Instructions: mix into at least 4 oz water or juice before administering Referrals Referrals: Talat Lee MD [Primary Care Provider] -
[2024-10-16 18:26] LABS: INR 1.0 (0.9-1.1); Partial Thromboplastin Time 28 Seconds (21-31); Prothrombin Time 11.3 Seconds (9.0-12.0)
[2024-10-16] MEDS: OPTIRAY 320 125ml IV ONE (18:28)
[2024-10-16] MEDS: SODIUM CHLORIDE 0.9% 500 ML IV ONE (18:39)
--- NOTE | 2024-10-16 18:56 | XRay Report ---
EXAM: Portable AP chest radiograph TECHNIQUE: AP portable radiograph of the chest was obtained. INDICATION: Chest pain Comparison: Chest radiograph June 23, 2022 FINDINGS: LINES and TUBES: Left-sided cardiac pacemaker again seen. CARDIOVASCULAR: Cardiac silhouette is stably and mildly enlarged with redemonstrated post CABG changes. Atherosclerotic thoracic aorta. Tortuous coursing of the thoracic aorta may be seen with chronic systemic hypertension. LUNGS/PLEURA: No focal consolidation identified. Left basilar subsegmental atelectasis. Calcified granuloma in the left lung base. No significant pleural fluid. No discernible pneumothorax. OSSEOUS/OTHER: No displaced acute osseous process identified. IMPRESSION: No radiographic evidence of acute cardiopulmonary process with unchanged findings as above. Electronically signed by Taurus Benitez 10-16-2024 6:55 PM
--- NOTE | 2024-10-16 19:17 | CT Scan Report ---
Clinical history: Dizziness and fatigue Technique: Axial computed tomography images were obtained of the brain before and after the administration of intravenous contrast according to the CT angiogram protocol Findings: There is cerebral atrophy, within expected limits for the patient's age. Areas of decreased attenuation are seen within the periventricular white matter, likely representing chronic small vessel ischemic disease. There is no definite sign of acute or old infarction. No intracranial hemorrhage is evident. No definite mass lesion is seen. There is no midline shift or other form of herniation. No hydrocephalus is seen. No fracture is identified. The orbits and the visualized paranasal sinuses appear unremarkable. The mastoid air cells appear clear. No definite stenosis or aneurysm is seen of the anterior, middle, or posterior cerebral artery circulations. There is mild plaque in the basilar artery, without stenosis Impression: No definite stenosis or aneurysm of the intracranial arteries Electronically signed by Live Serna 10-16-2024 7:17 PM
--- NOTE | 2024-10-16 19:25 | CT Scan Report ---
Clinical history: Dizziness and fatigue Technique: Axial computed tomography images were obtained of the neck after the administration of intravenous contrast according to the CT angiogram protocol Comparison is made to the prior CTA dated 05/15/2024 Findings: There is mild plaque in the distal common carotid arteries bilaterally, without significant stenosis. There is an approximately 50% diameter stenosis of the proximal right internal carotid artery. There is an approximately 60% diameter stenosis of the left carotid bulb and proximal left internal carotid artery. 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 There is calcified plaque in the cavernous segments of the distal internal carotid arteries bilaterally, without significant stenosis. There is mild plaque in the proximal external carotid arteries bilaterally, without significant stenosis There is a moderate severity stenosis of the distal right vertebral artery. There is an approximately 50% diameter stenosis of the distal left vertebral artery also. The visualized thoracic aorta appears unremarkable. Postsurgical changes are seen of coronary artery bypass grafting surgery There is multilevel degenerative disc disease and osteoarthritis of the cervical spine. There is anterolisthesis at C3-4 and C4-5 Impression: 1. 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 Unchanged approximately 60% stenosis of the left carotid bulb and proximal left ICA 3. Approximately 50% stenosis of the proximal right ICA 4. Moderate severity stenoses of the distal vertebral arteries bilaterally ACT 112: Positive. There are findings on this exam that require communication between the performing entity and the patient following Patient Test Result Information Act ([place] ACT 112) guidelines. Electronically signed by Live Serna 10-16-2024 7:24 PM
[2024-10-16 20:06] LABS: Magnesium 2.2 mg/dl (1.7-2.4)
--- NOTE | 2024-10-16 20:15 | History & Physical Report ---
Date of Service October 16, 2024 Assessment & Plan (1) Dizziness: (2) Vertebral artery stenosis: (3) PAF (paroxysmal atrial fibrillation): (4) (HFpEF) heart failure with preserved ejection fraction: Plan Patient is an 88-year-old male with past medical history of stage IIIb CKD, COPD, A-fib s/p Watchman not on anticoagulation after an intra-abdominal hemorrhage, ANNABELLE. Patient presented to concern for progressive dizziness over the past 6 months that has been especially worse over the past 2 days in which he feels unsafe to ambulate. His optical instrument assembly supervisor recommended he come into the ER due to his history of A-fib. He was found to have a paced rhythm, not in A-fib at time of admission. However suspect orthostatic hypotension as patient gets dizzy when going from sitting to standing and stated his blood pressure is low. Will adjust his BP medications and evaluate in the morning. #dizziness/fatigue/fallsEKG on admission showed paced rhythm, not in A-fib. Head CT showed cerebral atrophy with chronic small vessel ischemic disease. Neck CTA showed unchanged bilateral carotid artery stenosis (follows with neurology, Dr. Allen). VSS, renal function stable, electrolytes stable. Orthostatic vital signs ordered Will decrease evening metoprolol succinate 50 Mg p.o. to 25 Mg p.o. Takes Bumex on Saturday and , will hold Promote oral hydration Cardiology consulted Continue aspirin and atorvastatin Monitor on telemetry Will defer brain MRI at this time as head CT, head CTA, and neck CTA unchanged also unclear as if Watchman is compatible with MRI #A-fibs/p Watchman procedure, currently not on anticoagulation after intra- abdominal hemorrhage. EKG on admission shows paced rhythm. Decrease metoprolol as above, continue amiodarone #HFpEFmost recent ef -30 5 to 40% in 2020, follows with [place] [facility]ology and has had recent echocardiogram but unsure of EF. Bumex on Mondays and as above Defer further IVF #CKDstage IIIb, creatinine 1.58 at time of admission, baseline. Avoid nephrotoxic agents. VTE ppx: SCDs, low risk and history of intra-abdominal hemorrhage with anticoagulation Dispo: med/telemetry, possible discharge home 10/17 after cardiology eval and medication adjustments Admission and Anticipated Discharge Date Admission Date: 10/16/24 History of Present Illness Chief Complaint: cardiac assessment Primary Care Provider: Talat Lee MD Patient is an 88-year-old male with past medical history of stage IIIb CKD, COPD, A-fib s/p Watchman not on anticoagulation after an intra-abdominal hemorrhage, ANNABELLE. Patient presented to concern for progressive dizziness over the past 6 months that has been especially worse over the past 2 days in which he feels unsafe to ambulate. His optical instrument assembly supervisor recommended he come into the ER due to his history of A-fib. He was found to have a paced rhythm, not in A-fib at time of admission. However suspect orthostatic hypotension as patient gets dizzy when going from sitting to standing and stated his blood pressure is low. Will adjust his BP medications and evaluate in the morning. Patient seen at bedside. He stated over the past 6 months he has been getting progressively worse dizziness, fatigue, shortness of breath, and falling spells. He stated when he goes from sitting to standing he gets dizzy and he is only dizzy when he is up and walking around, never at rest. He also stated that he has pain in his legs when walking upstairs. Yesterday he had to cancel doctors appointment because he did not feel like he could safely walk to the car. He has been trying to drink plenty of fluids but stated his BP has been all over the place and has been low at home. He takes Bumex on Mondays and . He is on metoprolol succinate 50mg at bedtime. denies any recent chest pain. Patient called his optical instrument assembly supervisor numerous times about this who recommended he come into the ED because he has been both 100% paced rhythm and 100% A-fib rhythm, he was concerned he would need cardioversion. EKG on admission that showed paced rhythm, no A-fib. Patient wishes to be full code and is due for evening medications. Allergies Allergy/AdvReac Type Severity Reaction Status Date / Time amlodipine Allergy Severe EDEMA Verified 10/16/24 19:15 AIRWAY ramipril AdvReac Intermediate Cough Verified 10/16/24 19:15 ropinirole AdvReac Intermediate HALLUCINATI Verified 10/16/24 19:15 ONS Home Medications Medication Instructions Recorded Confirmed Type metoprolol succinate 50 mg 50 mg PO HS 11/26/19 10/16/24 History tablet,extended release 24 hr pantoprazole 40 mg tablet,delayed 40 mg PO QAM 11/26/19 10/16/24 History release aspirin 81 mg tablet,delayed 81 mg PO QAM #30 tabs 12/08/20 10/16/24 Rx release amiodarone 200 mg tablet 200 mg PO QAM 05/14/21 10/16/24 History nitroglycerin 0.4 mg sublingual 0.4 mg sublingual DIRECTED PRN 05/14/21 10/16/24 History tablet Chest Pain levothyroxine 88 mcg tablet 88 mcg PO DAILY 06/06/21 10/16/24 History (Synthroid) acetaminophen 500 mg capsule 1,000 mg PO Q8H PRN Pain 06/20/21 10/16/24 History albuterol sulfate 90 mcg/actuation 1 - 2 inh inhalation QID PRN 06/20/21 10/16/24 History aerosol inhaler Shortness Of Breath Or Wheezing atorvastatin 80 mg tablet 40 mg PO Q2D 06/20/21 10/16/24 History tadalafil 10 mg tablet 20 mg PO DIRECTED PRN Erectile 09/27/21 10/16/24 History Dysfunction aluminum chloride 20 % topical 1 applic topical HS PRN DIRECTED 08/29/22 10/16/24 History solution (Drysol) bumetanide 0.5 mg tablet 0.5 mg PO QAM 08/29/22 10/16/24 History ranolazine 1,000 mg 500 mg PO BID 08/29/22 10/16/24 History tablet,extended release,12 hr empagliflozin 10 mg tablet 10 mg PO DAILY #90 tabs 03/13/24 10/16/24 Rx (Jardiance) cholecalciferol (vitamin D3) 25 25 mcg PO DAILY 10/16/24 10/16/24 History mcg (1,000 unit) capsule (Vitamin D3) psyllium husk 3.4 gram/5.4 gram 2 tsp PO DAILY 10/16/24 10/16/24 History oral powder (Metamucil) Past Med/Surg History Problem List (Updated 10/16/24 @ 20:49 by Ainsley Ovalle PA-C) (HFpEF) heart failure with preserved ejection fraction Dizziness Vertebral artery stenosis CTS (carpal tunnel syndrome) Carotid stenosis Hypertension Ocular migraine Carotid bruit Vitamin D deficiency Proteinuria Stage 3b chronic kidney disease Chronic cough Chronic obstructive pulmonary disease Pleural effusion COPD exacerbation (Acute) PAF (paroxysmal atrial fibrillation) Current use of intermediate card tender anticoagulation (Acute) Medical History Acute congestive heart failure Anemia Falls frequently Lab test negative for COVID-19 virus Acute renal insufficiency Acute hyponatremia Weakness Atrial flutter Sleep apnea Hyperlipidemia Atrial thrombus Hypothyroidism CONNOLLY (dyspnea on exertion) COVID-19 virus antibody negative Pacemaker CHF (congestive heart failure) Anticoagulated Dysarthria Ataxia Pulmonary hypertension Encounter for pre-operative examination CAD (coronary artery disease) GERD (gastroesophageal reflux disease) Myocardial Infarction History of pacemaker Right shoulder pain TIA (transient ischemic attack) Wound infection after surgery (01/15/14) Palpitations Lumbar stenosis with neurogenic claudication (01/05/14) Chest pain Surgical History Hx of CABG (~1988) History of total bilateral knee replacement History of back surgery History of esophagogastroduodenoscopy (EGD) History of colonoscopy History of cardiac cath History of tympanoplasty (~1983) Hx of inguinal hernia surgery Hx of total knee replacement Family History Other No family history of adverse response to anesthesia Social History Smoking Status: Former smoker Tobacco Type: Cigarettes Age Started Using Tobacco: 21; Age Quit Using Tobacco: 33; Second Hand Exposure: No; Do You Dip or Chew Tobacco: No; Hx Alcohol Use: Yes Alcohol type: beer, wine and hard liquor Alcohol Intake Frequency: 4 or More x per/Week Hx Substance Use: No Preferred Language: Tristanian Communication Ability: Effective Visual Impairment: No Limitations Hearing Ability: Use of Hearing Aid Plate Keeper Required: No Beliefs That Will Affect Care: None marital status: Current Living Situation: Alone current occupational status: retired Feels Safe at Home: Yes Diet: regular Dental Care, Regularly: Yes Physical Activity Frequency: Does not Exercise Seatbelt Use: always Do you think of yourself as: straight/heterosexual Gender Identity: Male Assistive Devices: Glasses and Hearing Aid - Bilateral Review of Systems Review of Systems: see HPI Physical Exam Physical Exam: The patient is awake, alert and oriented 3, well developed and well nourished, normocephalic and atraumatic, in no acute distress. Non-toxic appearing. HEENT- EOMI, mucous membranes moist. Hearing grossly intact. Heart-normal S1 and S2. No murmurs, rubs or gallops. Lungs-clear bilaterally, no respiratory distress, no accessory muscle use. Abdomen-normal bowel sounds and soft. No ascites noted. Non-tender. Extremities- no clubbing, cyanosis, or edema. Rheumatologic-normal range of motion. Psychiatric-normal affect. Results & Data Results & Data Vital Signs (Past 12 Hours) Vital Signs Temp Pulse Pulse Resp BP BP Pulse Ox 10/16/24 18:06 97 H 10/16/24 18:04 76 16 98 10/16/24 18:04 80 16 144/93 H 99 10/16/24 18:04 99 10/16/24 17:22 36.8 C 96 H 18 125/79 96 O2 Del Method 10/16/24 18:06 10/16/24 18:04 Room Air 10/16/24 18:04 Room Air 10/16/24 18:04 Room Air 10/16/24 17:22 Room Air Laboratory Results Reviewed CBC, CMP, magnesium, troponin Diagnostic Findings reviewed head CTA, head CT, neck CTA, CXR Medications Administered EDmeclizine 25 Mg p.o., 500 mL NSS bolus ECG Additional Comments: wide QRS rhythm, paced Rate 90 QTc 462 Code Status & VTE Plan Code Status full code VTE Prophylaxis Plan VTE Prophylaxis will be ordered: Yes Supervising Physician Co-Signing Physician Notes Attending addendum: I have physically seen this patient, have supervised the MERRICK's activities, and agree with the H&P unless as otherwise noted. Assessment and Plan: The patient is an 88-year-old male with past medical history including stage IIIb CKD, COPD, A-fib status post Watchman, intra-abdominal hemorrhage associated with anticoagulation, and ANNABELLE. He presents to the emergency department with progressively worsening dizziness over the past 6 months, in particular worsening over the past 2 days, worse with ambulation. Recent pacemaker interrogation 10 days ago reports that he was in A-fib 100% of time, and paced 100% of the time. His optical instrument assembly supervisor asked that he be admitted to the hospital for further evaluation. Dizziness/fatigue/falls- The patient will be admitted to telemetry for serial cardiac enzymes, serial EKG's, cardiac rhythm monitoring and a 2-D echocardiogram with Dopplers. Follow orthostatic vital signs CTA of head is negative CTA neck shows no change in focal dissection of the left carotid bulb, 60% stenosis of the left carotid bulb and proximal left ICA. 50% stenosis of proximal right ICA. Moderate stenosis of distal vertebral arteries. Hold Bumex, that usually takes on Saturday and Reduce evening metoprolol succinate from 50 to 25 mg Continue aspirin and atorvastatin Consult cardiology Atrial fibrillation/HFpEF- Troponin 9.6, with follow-up in a.m. S/p Watchman procedure Not an anticoagulation candidate due to history of intra-abdominal hemorrhage on previous anticoagulation EKG shows paced rhythm Continue amiodarone Decrease metoprolol succinate dosing as noted above Outpatient setting Bumex dosing on Mondays and will be held during admission CKD stage IIIb- Creatinine 1.58 with base 1.74 PG Care Time/CCT Total # of Minutes Spent Total Time Spent with Patient: Total time spent is greater than 50% in coordination of care (as documented) at patient's floor/unit and/or counseling patient: Coding Level of Care Code 85101 INT INP/OBS CARE 3/75MIN Diagnoses Dizziness R42 Vertebral artery stenosis I65.09 PAF (paroxysmal atrial fibrillation) I48.0 (HFpEF) heart failure with preserved ejection fraction I50.30
[2024-10-16] MEDS: MECLIZINE HCL 25 MG TAB PO STA (20:22)
[2024-10-16] MEDS: METOPROLOL SUCC 25MG EXT REL TAB PO SCH ×2 (21:13→21:55)
[2024-10-16] MEDS ORDERED: ACETAMINOPHEN 325 MG TAB PO PRN (23:49)
[2024-10-16] MEDS ORDERED: ONDANSETRON INJ 2 MG/ML 2 ML VIAL IV PRN (23:49)
[2024-10-16] MEDS ORDERED: MELATONIN 3 MG TAB PO PRN (23:49)
[2024-10-17] MEDS: RANOLAZINE 500 MG ER TAB PO SCH (00:17)
[2024-10-17] MEDS: LEVOTHYROXINE SODIUM 88 MCG TABLET PO SCH (05:33)
[2024-10-17 07:21] LABS: Hematocrit (blood only) 36.8 % (42.0-52.0); Hemoglobin 12.5 g/dl (14.0-18.0); Immature Granulocytes # (auto) 0.04 K/uL (0.01-0.20); Immature Granulocytes % (auto) 0.7 %; Mean Corpuscular Hemoglobin 34.2 pg (25.0-34.0); Mean Corpuscular Volume 100.8 fL (80.0-100.0); Platelet Count 127 K/uL (130-400); RDW Standard Deviation 55.8 fL (36.4-46.3); Red Blood Count 3.65 M/uL (4.70-6.10); White Blood Count 5.97 K/ul (4.8-10.8)
[2024-10-17 08:02] LABS: Anion Gap 7.0 (3-11); Blood Urea Nitrogen 27.0 mg/dl (6-23); Calcium 8.5 mg/dl (8.6-10.3); Carbon Dioxide 22.0 mmol/L (21-32); Chloride 107.0 mmol/L (98-107); Creatinine Clr Calc Pharmacy 39.1 ml/min; Glucose 88.0 mg/dl (70-99(Fasting)); Magnesium 2.1 mg/dl (1.7-2.4); Potassium 4.5 mmol/L (3.5-5.1); Sodium 136.0 mmol/L (136-145)
[2024-10-17] MEDS: ASPIRIN 81 MG ECTAB PO SCH (10:45)
[2024-10-17] MEDS: AMIODARONE 200 MG TAB PO SCH (10:46)
--- NOTE | 2024-10-17 12:00 | Hospitalist Progress Note ---
Date of Service October 17, 2024 Assessment & Plan (1) Dizziness: Plan: -pt hypotensive this am -metoprolol decreased to 25mg daily -bumex on hold -echo ordered -cardiology consult pending -PT/OT (2) Vertebral artery stenosis: Plan: MRI deferred at this time as head CT, head CTA, and neck CTA unchanged also unclear as if Watchman is compatible with MRI (3) PAF (paroxysmal atrial fibrillation): Plan: -s/p Watchman procedure, currently not on anticoagulation after intra-abdominal hemorrhage. EKG on admission shows paced rhythm. Decrease metoprolol as above, continue amiodarone (4) (HFpEF) heart failure with preserved ejection fraction: Plan: -bumex on hold Plan Patient is an 88-year-old male with past medical history of stage IIIb CKD, COPD, A-fib s/p Watchman not on anticoagulation after an intra-abdominal hemorrhage, ANNABELLE. Patient presented to concern for progressive dizziness over the past 6 months that has been especially worse over the past 2 days in which he feels unsafe to ambulate. His education and training manager recommended he come into the ER due to his history of A-fib. He was found to have a paced rhythm, not in A-fib at time of admission. However suspect orthostatic hypotension as patient gets dizzy when going from sitting to standing and stated his blood pressure is low. Will adjust his BP medications and evaluate in the morning. Admission and Anticipated Discharge Date Admission Date: October 16, 2024 Subjective No events overnight. Pt resting comfortably in bed. Review of Systems Review of Systems: CONST: Negative for fever, body aches and chills. HENT: Negative for neck pain/stiffness, headache, congestion, sore throat, swelling. EYES: Negative for discharge/pain or vision changes. RESP: Negative for cough/hemoptysis and shortness of breath. CV: Negative chest pain, difficulty breathing, palpitations. ABD: Negative pain, nausea, vomiting. : Negative increase frequency, dysuria, blood in urine or stool. MUSC: Negative for muscle aches, edema. SKIN: Negative rash, lesions/sores. NEURO: Negative headache, dizziness, weakness. Physical Exam Physical Exam: GENERAL APPEARANCE NAD, activity normal for age, well developed/ well nourished, no cyanosis, pallor, or diaphoresis. EYES lids/conjunctiva normal. EARS/NOSE/THROAT Mucous membranes moist, nares normal, lips/teeth normal uvula midline without oral pharyngeal erythema, exudate or swelling TMs normal bilaterally. No lymphangitis/lymphedema. HEAD/NECK normocephalic atraumatic, no facial trauma, neck is supple. RESPIRATORY respiratory effort normal, speaks in full sentences, no tripod position, no accessory muscle use. Lungs clear to auscultation without rhonchi, wheezes, rales CARDIAC Regular rate and rhythm, no edema. ABDOMINAL Soft, ND/NT. No evidence of fluid wave. No pulsatile masses on exam, rebound tenderness, Rosas sign or pain over Mcburney's point. MUSCLES/EXTREMITIES No abnormal range of motion, no swelling. SKIN Warm, pink and dry. No rashes, dermatoses, petechiae or lesions. NEUROLOGICAL Speech is clear and appropriate. Normal level of consciousness. Gait and coordination are normal. 5/5 strength in all extremities. PSYCH Normal mood and affect. Judgement/competence is appropriate Results & Data Results & Data Vital Signs (Past 12 Hours) Vital Signs Temp Pulse Pulse Resp BP BP Pulse Ox 10/17/24 11:35 36.9 C 72 20 102/65 94 10/17/24 08:13 36.4 C L 71 16 93/58 L 97 10/17/24 02:59 36.1 C L 80 16 110/65 95 10/17/24 00:24 10/17/24 00:24 36.4 C L 80 18 144/85 H 98 10/17/24 00:08 70 O2 Del Method 10/17/24 11:35 Room Air 10/17/24 08:13 Room Air 10/17/24 02:59 Room Air 10/17/24 00:24 Room Air, CPAP 10/17/24 00:24 Room Air, CPAP 10/17/24 00:08 PG Care Time/CCT Total # of Minutes Spent Total Time Spent with Patient: Total time spent is greater than 50% in coordination of care (as documented) at patient's floor/unit and/or counseling patient: Coding Level of Care Code 09694 SUB INP/OBS CARE 2/35MIN Diagnoses Dizziness R42 Vertebral artery stenosis I65.09 PAF (paroxysmal atrial fibrillation) I48.0 (HFpEF) heart failure with preserved ejection fraction I50.30
--- NOTE | 2024-10-17 13:19 | Cardiology Consultation ---
Date of Consultation October 17, 2024 Assessment & Plan (1) Atrial fibrillation, permanent: (2) Anticoagulation therapy not indicated: (3) Paced cardiac rhythm: (4) Hypotension: Plan 1. Atrial fibrillation: Based on his chart I believe he is in permanent atrial fibrillation although he is on amiodarone so perhaps there is a thought to return him to sinus rhythm. I am not going to pursue this now, and I will leave the long-term medical therapy up to his primary cardiology service. Amiodarone will not affect blood pressure very much, it may help control rate although I do not generally use it for that reason. 2. Anticoagulation: He has a watchman in place, therefore does not need anticoagulation. 3. Paced rhythm: He presented with a paced rhythm, on telemetry he is paced throughout. 4. Hypotension: Although reported to have hypotension as a cause of his dizzin ess his vital signs do not show much hypotension. Orthostatic vital signs done on admission did not show any change in heart rate or blood pressure, he does have a labile blood pressure so perhaps it is intermittent but this does suggest he may have another cause for his dizziness. We need to correlate his symptoms with hypotension if we are going to try to treat his dizziness with blood pressure management. I did ask to get orthostatic vital signs today, and if these are not contributory (if he does have orthostasis we need to make sure he has symptoms with it as well) then we should have him ambulate and get his blood pressure while he is standing while he is standing and while he is having symptoms to make sure that they do correlate. If we do need to treat the hypotension we can consider discontinuing the metoprolol, that appears to be the only medication lowering blood pressure and it does not appear he needs it for rate control. If rate control is needed we may be able to achieve rate control in other ways which would include digoxin (which will not lower his blood pressure) or we can consider AV mae ablation. History of Present Illness Reason for Consultation: Hypotension, atrial fibrillation, pacemaker Attending Physician: Cuauhtemoc Hurley MD History of Present Illness This is an 88-year-old male who is followed by [facility] (Dr. Muñoz) for extensive cardiovascular disease. He has a history of coronary artery disease including bypass surgery in 1988, stenting in 2010 and catheterization September 2018 where a drug-eluting stent was placed again in the second obtuse marginal. He also has a history of paroxysmal atrial fibrillation but now I believe this is in permanent atrial fibrillation. 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 We did have a spontaneous retroperitoneal bleed in August 2021 while on anticoagulation, he had a Watchman placed and is now off of anticoagulation. He also has peripheral arterial disease including carotid disease identified by CTA. He does have difficulty with what looks like a labile blood pressure, he is on m etoprolol succinate 50 mg at bedtime and on amiodarone 200 mg daily. I am not sure why he is on amiodarone unless there are thoughts to try to return him to sinus rhythm. He is also on Bumex, Farxiga and atorvastatin at home. He presented to the emergency room on October 16, 2024 with dizziness and difficulty walking. This has been getting worse over the last 6 months. He is reported not to have atrial fibrillation on presentation here however although he does have a paced rhythm he is in atrial fibrillation which is probably permanent. His rate however is controlled by the pacemaker and his medications. He did have orthostatic vital signs done on October 06, 2024, these indicated no orthostatic hypotension and his blood pressure was not below. On vital signs here his blood pressure is quite labile but I am not sure we have correlated blood pressure with symptoms. He does not recall having any dizziness when the orthostatic blood pressure measurements were done, he states that he usually does not get the symptoms until he gets up and walks around. I do not think we have attempted to duplicate those symptoms. Currently laying in bed he feels well, he has no other cardiovascular symptoms such as palpitations (his rate is regular as it is paced all of the time so he is not likely to feel palpitations). He has not had orthopnea or PND and does not have difficulty with fluid retention or exertional chest discomfort. Allergies Allergy/AdvReac Type Severity Reaction Status Date / Time amlodipine Allergy Severe EDEMA Verified 10/16/24 19:15 AIRWAY ramipril AdvReac Intermediate Cough Verified 10/16/24 19:15 ropinirole AdvReac Intermediate HALLUCINATI Verified 10/16/24 19:15 ONS Home Medications Medication Instructions Recorded Confirmed Type metoprolol succinate 50 mg 50 mg PO HS 11/26/19 10/16/24 History tablet,extended release 24 hr pantoprazole 40 mg tablet,delayed 40 mg PO QAM 11/26/19 10/16/24 History release aspirin 81 mg tablet,delayed 81 mg PO QAM #30 tabs 12/08/20 10/16/24 Rx release amiodarone 200 mg tablet 200 mg PO QAM 05/14/21 10/16/24 History nitroglycerin 0.4 mg sublingual 0.4 mg sublingual DIRECTED PRN 05/14/21 10/16/24 History tablet Chest Pain levothyroxine 88 mcg tablet 88 mcg PO DAILY 06/06/21 10/16/24 History (Synthroid) acetaminophen 500 mg capsule 1,000 mg PO Q8H PRN Pain 06/20/21 10/16/24 History albuterol sulfate 90 mcg/actuation 1 - 2 inh inhalation QID PRN 06/20/21 10/16/24 History aerosol inhaler Shortness Of Breath Or Wheezing atorvastatin 80 mg tablet 40 mg PO Q2D 06/20/21 10/16/24 History tadalafil 10 mg tablet 20 mg PO DIRECTED PRN Erectile 09/27/21 10/16/24 History Dysfunction aluminum chloride 20 % topical 1 applic topical HS PRN DIRECTED 08/29/22 10/16/24 History solution (Drysol) bumetanide 0.5 mg tablet 0.5 mg PO QAM 08/29/22 10/16/24 History ranolazine 1,000 mg 500 mg PO BID 08/29/22 10/16/24 History tablet,extended release,12 hr empagliflozin 10 mg tablet 10 mg PO DAILY #90 tabs 03/13/24 10/16/24 Rx (Jardiance) cholecalciferol (vitamin D3) 25 25 mcg PO DAILY 10/16/24 10/16/24 History mcg (1,000 unit) capsule (Vitamin D3) psyllium husk 3.4 gram/5.4 gram 2 tsp PO DAILY 10/16/24 10/16/24 History oral powder (Metamucil) Patient History Medical History Acute congestive heart failure Anemia Falls frequently Lab test negative for COVID-19 virus Acute renal insufficiency Acute hyponatremia Weakness Atrial flutter found 01/05/21 at [employer] office Sleep apnea Non-compliant with cpap Hyperlipidemia Atrial thrombus Hypothyroidism CONNOLLY (dyspnea on exertion) COVID-19 virus antibody negative Pacemaker CHF (congestive heart failure) Anticoagulated Dysarthria Ataxia Pulmonary hypertension Noted, moderate, on most recent echo. On tadalafil PRN for ED, not pHTN. Encounter for pre-operative examination CAD (coronary artery disease) s/p GA 1988 with CABG x 4; stent x 1 2013 and x 1 2016 GERD (gastroesophageal reflux disease) Myocardial Infarction 1988 History of pacemaker Implanted 2013 (for bradycardia) Right shoulder pain TIA (transient ischemic attack) x3 ~ and then recently ~07/16/2020 TIA, treated at [facility] Emergency room Wound infection after surgery (01/15/14) Palpitations Lumbar stenosis with neurogenic claudication (01/05/14) Chest pain Surgical History Hx of CABG (~1988) x4 vessels in [place]. History of total bilateral knee replacement History of back surgery X 5 LUMBAR History of esophagogastroduodenoscopy (EGD) WITH DILITATION History of colonoscopy History of cardiac cath TOTAL 2 STENTS-2013 AND 2016-F/U DR MUÑOZ History of tympanoplasty (~1983) Hx of inguinal hernia surgery Hx of total knee replacement Family History Other No family history of adverse response to anesthesia Social History Smoking Status: Former smoker Tobacco Type: Cigarettes Age Started Using Tobacco: 21; Age Quit Using Tobacco: 33; Second Hand Exposure: No; Do You Dip or Chew Tobacco: No; Tobacco Cessation Education Requested by Patient: No Hx Alcohol Use: Yes Alcohol type: beer and wine Alcohol Intake Frequency: 4 or More x per/Week Hx Substance Use: Yes Last Used Substance: Unknown Preferred Language: Ghanaian Communication Ability: Effective Visual Impairment: No Limitations Hearing Ability: Use of Hearing Aid Reporting Developer Required: No Beliefs That Will Affect Care: None marital status: Current Living Situation: Spouse current occupational status: retired Other Information That Helps Us Care for You: No Feels Safe at Home: Yes Safety Concerns: Feels Safe At This Time Diet: regular Dental Care, Regularly: Yes Physical Activity Frequency: Does not Exercise Seatbelt Use: always Do you think of yourself as: straight/heterosexual Gender Identity: Male Assistive Devices: Cane, CPAP, Glasses, Hearing Aid - Bilateral and Walker Assistive Devices Comment: Knee braces B/L Review of Systems Review of Systems: All systems reviewed & are unremarkable except as noted in HPI & below Physical Exam Physical Exam: Constitutional: Alert, cooperative and in no distress. HEENT: Unremarkable Neck: No jugular venous distention, carotid pulses are normal and equal bilaterally without bruits. Pulmonary: Clear to auscultation bilaterally. Cardiac: Regular rhythm with no murmur, gallop or rub. Abdomen: Soft, nontender with normal bowel sounds. Extremities: No edema. Neurologic: No focal findings. Skin: The device site is well-healed without erythema, swelling or tenderness. No rash, ecchymoses or petechiae. Results & Data Vital Signs (Past 12 Hours) Vital Signs Temp Pulse Pulse Resp BP BP Pulse Ox 10/17/24 12:39 94 H 10/17/24 11:35 36.9 C 72 20 102/65 94 10/17/24 08:13 36.4 C L 71 16 93/58 L 97 10/17/24 02:59 36.1 C L 80 16 110/65 95 O2 Del Method 10/17/24 12:39 10/17/24 11:35 Room Air 10/17/24 08:13 Room Air 10/17/24 02:59 Room Air Laboratory Results Cardiac Enzymes 10/16/24 Range/Units 17:40 AST 20 (13-39) U/L Troponin I High Sens 9.6 (0-20) pg/ml Coagulation 10/16/24 Range/Units 17:40 PT 11.3 (9.0-12.0) Seconds APTT 28 (21-31) Seconds CBC 10/16/24 10/17/24 Range/Units 17:40 06:13 WBC 5.18 5.97 (4.8-10.8) K/ul RBC 3.82 L 3.65 L (4.70-6.10) M/uL Hgb 13.2 L 12.5 L (14.0-18.0) g/dl Hct 39.0 L 36.8 L (42.0-52.0) % Plt Count 130 127 L (130-400) K/uL Neut # (Auto) 2.93 2.98 (1.40-6.50) K/uL Lymph # (Auto) 1.33 1.86 (1.20-3.40) K/uL [place] # (Auto) 0.66 H 0.75 H (0.11-0.59) K/uL Eos # (Auto) 0.20 0.28 (0.00-0.50) K/uL Baso # (Auto) 0.03 0.06 (0.00-0.20) K/uL Comprehensive Metabolic Panel 10/16/24 10/17/24 Range/Units 17:40 06:13 Sodium 133 L 136 (136-145) mmol/L Potassium 4.8 4.5 (3.5-5.1) mmol/L Chloride 103 107 (98-107) mmol/L Carbon Dioxide 25 22 (21-32) mmol/L BUN 33 H 27 H (6-23) mg/dl Creatinine 1.58 H 1.39 (0.6-1.4) mg/dl Glucose 91 88 (70-99(Fasting)) mg/dl Calcium 8.8 8.5 L (8.6-10.3) mg/dl AST 20 (13-39) U/L ALT 13 (7-52) U/L Alkaline Phosphatase 67 (34-104) U/L Total Protein 7.0 (6.0-8.3) gm/dl Albumin 4.3 (3.4-5.0) gm/dl Intake and Output 10/16/24 10/17/24 10/17/24 22:59 06:59 14:59 Intake Total 500 / 600 100 / 600 120 / 120 Balance 500 / 600 100 / 600 120 / 120 Intake: IV 500 / 500 Sodium Chloride 0.9% 500 ml @ 500 / 500 999 mls/hr IV .Q31M ONE Rx#: [id number] Oral 100 / 100 120 / 120 Other: # Unmeasured Voids 2 2 Weight 81.2 kg 81.2 kg Weight Measurement Method Standing Scale Diagnostic Findings Telemetry: Ventricular paced rhythm predominantly at 70 bpm, I do not see any AV conduction during atrial fibrillation. PG Care Time/CCT Total # of Minutes Spent Total Time Spent with Patient: Total time spent is greater than 50% in coordination of care (as documented) at patient's floor/unit and/or counseling patient: Coding Level of Care Code 34421 INT INP/OBS CARE MIN Diagnoses Atrial fibrillation, permanent I48.21 Anticoagulation therapy not indicated Z78.9 Paced cardiac rhythm Z95.0 Hypotension I95.9
[2024-10-17] MEDS: DOCUSATE SODIUM 100 MG CAP PO PRN (14:00)
[2024-10-17 20:11] VITALS: RESP 18
[2024-10-18 07:46] VITALS: BP 119/75; TEMP 97.7; O2SAT 96
[2024-10-18] MEDS: ATORVASTATIN 40 MG TAB PO SCH (08:42)
--- NOTE | 2024-10-18 09:34 | Discharge Summary ---
Discharge Summary Date of Service October 18, 2024 Principal Dx & Hospital Course #1 = Principal Diagnosis (1) Dizziness: -pt hypotensive this am -metoprolol decreased to 25mg daily -bumex on hold -echo ordered -cardiology consult appreciated. Recommending d/c metoprolol. -PT/OT (2) Vertebral artery stenosis: MRI deferred at this time as head CT, head CTA, and neck CTA unchanged also unclear as if Watchman is compatible with MRI (3) PAF (paroxysmal atrial fibrillation): -s/p Watchman procedure, currently not on anticoagulation after intra-abdominal hemorrhage. EKG on admission shows paced rhythm. Decrease metoprolol as above, continue amiodarone (4) (HFpEF) heart failure with preserved ejection fraction: -bumex on hold Plan Patient is an 88-year-old male with past medical history of stage IIIb CKD, COPD, A-fib s/p Watchman not on anticoagulation after an intra-abdominal hemorrhage, ANNABELLE. Patient presented to concern for progressive dizziness over the past 6 months that has been especially worse over the past 2 days in which he feels unsafe to ambulate. His store receiving specialist recommended he come into the ER due to his history of A-fib. He was found to have a paced rhythm, not in A-fib at time of admission. However suspect orthostatic hypotension as patient gets dizzy when going from sitting to standing and stated his blood pressure is low. Will adjust his BP medications and evaluate in the morning. Admission HPI Per Admitting Provider Patient is an 88-year-old male with past medical history of stage IIIb CKD, COPD, A-fib s/p Watchman not on anticoagulation after an intra-abdominal hemorrhage, ANNABELLE. Patient presented to concern for progressive dizziness over the past 6 months that has been especially worse over the past 2 days in which he feels unsafe to ambulate. His store receiving specialist recommended he come into the ER due to his history of A-fib. He was found to have a paced rhythm, not in A-fib at time of admission. However suspect orthostatic hypotension as patient gets dizzy when going from sitting to standing and stated his blood pressure is low. Will adjust his BP medications and evaluate in the morning. Patient seen at bedside. He stated over the past 6 months he has been getting progressively worse dizziness, fatigue, shortness of breath, and falling spells. He stated when he goes from sitting to standing he gets dizzy and he is only dizzy when he is up and walking around, never at rest. He also stated that he has pain in his legs when walking upstairs. Yesterday he had to cancel doctors appointment because he did not feel like he could safely walk to the car. He h as been trying to drink plenty of fluids but stated his BP has been all over the place and has been low at home. He takes Bumex on Mondays and . He is on metoprolol succinate 50mg at bedtime. denies any recent chest pain. Patient called his store receiving specialist numerous times about this who recommended he come into the ED because he has been both 100% paced rhythm and 100% A-fib rhythm, he was concerned he would need cardioversion. EKG on admission that showed paced rhythm, no A-fib. Patient wishes to be full code and is due for evening medications. Discharge Exam GENERAL APPEARANCE NAD, activity normal for age, well developed/ well nourished, no cyanosis, pallor, or diaphoresis. EYES lids/conjunctiva normal. EARS/NOSE/THROAT Mucous membranes moist, nares normal, lips/teeth normal uvula midline without oral pharyngeal erythema, exudate or swelling TMs normal bilaterally. No lymphangitis/lymphedema. HEAD/NECK normocephalic atraumatic, no facial trauma, neck is supple. RESPIRATORY respiratory effort normal, speaks in full sentences, no tripod position, no accessory muscle use. Lungs clear to auscultation without rhonchi, wheezes, rales CARDIAC Regular rate and rhythm, no edema. ABDOMINAL Soft, ND/NT. No evidence of fluid wave. No pulsatile masses on exam, rebound tenderness, Rosas sign or pain over Mcburney's point. MUSCLES/EXTREMITIES No abnormal range of motion, no swelling. SKIN Warm, pink and dry. No rashes, dermatoses, petechiae or lesions. NEUROLOGICAL Speech is clear and appropriate. Normal level of consciousness. Gait and coordination are normal. 5/5 strength in all extremities. PSYCH Normal mood and affect. Judgement/competence is appropriate Discharge Plan Discharge Items Patient Disposition: Home - Self-Care Reason For Visit: DIZZINESS Discharge Diagnosis: symptomatic hypotension Condition on Discharge: Fair Activity: Resume your previous activity Non-emergency contact: Primary Care Provider Call non-emergency contact if: you have any medication questions Follow-up/Referrals: Talat Lee MD [Primary Care Provider] - Diet: Regular Addtl Attending Provider Instructions: Follow up with PMD in 2 weeks Pending Studies at Discharge: No Stand-Alone Forms: My [facility], Smoking Cessation Medications and DC Order Prescriptions: Continued levothyroxine [Synthroid] 88 mcg tablet 88 mcg PO DAILY albuterol sulfate 90 mcg/actuation HFA aerosol inhaler 1 - 2 inh inhalation QID PRN (Reason: Shortness Of Breath Or Wheezing) acetaminophen 500 mg capsule 1,000 mg PO Q8H PRN (Reason: Pain) Jardiance 10 mg tablet 10 mg PO DAILY Qty: 90 3RF bumetanide 0.5 mg tablet 0.5 mg PO QAM Rx Instructions: 1 mg by mouth daily pantoprazole 40 mg Tablet,Delayed Release (Dr/Ec) 40 mg PO QAM atorvastatin 80 mg tablet 40 mg PO Q2D aspirin 81 mg Tablet,Delayed Release (Dr/Ec) 81 mg PO QAM Qty: 30 0RF amiodarone 200 mg tablet 200 mg PO QAM nitroglycerin 0.4 mg tablet, sublingual 0.4 mg sublingual DIRECTED PRN (Reason: Chest Pain) ranolazine 1,000 mg tablet extended release 12 hr 500 mg PO BID tadalafil 10 mg tablet 20 mg PO DIRECTED PRN (Reason: Erectile Dysfunction) Drysol 20 % solution 1 applic TOPICAL HS PRN (Reason: DIRECTED) cholecalciferol (vitamin D3) [Vitamin D3] 25 mcg (1,000 unit) Capsule 25 mcg PO DAILY Metamucil 3.4 gram/5.4 gram Powder 2 tsp PO DAILY Rx Instructions: mix into at least 4 oz water or juice before administering Discontinued metoprolol succinate 50 mg Tablet Extended Release 24 Hr 50 mg PO HS Discharge Orders: Discharge Order (Routine); Ordered 10/18/24 Ordered By: Cuauhtemoc Hurley Admission Data Admit Date/Time: 10/16/24 20:27 Attending Provider: Cuauhtemoc Hurley Admit Provider: Malcolm Milian Primary Care Provider: Talat Lee Other Providers: Malcolm Milian; Po Nguyen Hospital Stay Data Consultations 10/16/24 19:42 ED Decision to Admit Stat 10/16/24 23:49 Consult Cardiology Routine Diagnostic Imagining Performed 10/16/24 18:10 CT angio head wo/w Stat CT angio neck with con Stat Pending Results Patient Have Any Pending Studies at Discharge: No Discharge Instructions Given to Patient (Per Discharging Provider) Follow up with PMD in 2 weeks Total Time Total Time Spent Total Time Spent (In Minutes): 50 Coding Level of Care Code 05188 INP/OBS DISCH >30 MIN Diagnoses Dizziness R42 Vertebral artery stenosis I65.09 PAF (paroxysmal atrial fibrillation) I48.0 (HFpEF) heart failure with preserved ejection fraction I50.30
[2024-10-18 09:48] VITALS: PULSE 80
--- NOTE | 2024-10-18 11:45 | XCELERA ---
[id number]
--- NOTE | 2024-10-18 15:59 | Electrocardiogram Report ---
Test Reason : Blood Pressure : */* mmHG Vent. Rate : 90 BPM Atrial Rate : * BPM P-R Int : * ms QRS Dur : 130 ms QT Int : 378 ms P-R-T Axes : * -31 153 degrees QTcB Int : 462 ms Ventricular-paced rhythm Left axis deviation Abnormal ECG When compared with ECG of 23-Jun-2022 12:15, No significant change Confirmed by Po Nguyen ([id number]) on 10/18/2024 3:59:42 PM Referred By: Confirmed By: Po Nguyen
== END 2024-10-18 10:43 | disposition home or self-care (01) ==
LOC: SUATTDRO → ED 17:18 → 2N 17:18 → SUATTDRO 20:27 → 2N 23:39